=== PATIENT | male | born 1945 | race Caucasian/White ===

== ENCOUNTER 2016-07-16 13:49 | Outpatient (CLI) | payer MEDICARE, BC ==
[2016-07-16] MEDS ORDERED: GADOBUTROL 7.5 MMOL/7.5 ML VIAL IVP ONE (16:47)
== END 2016-07-16 13:50 | disposition home or self-care (01) ==
DX: H92.01 Otalgia, right ear (principal); H93.291 Other abnormal auditory perceptions, right ear
CPT/HCPCS: 36415; 70543; 82565; 84520; A9585

== ENCOUNTER 2016-08-04 09:37 | Outpatient (CLI) | payer MEDICARE, BC | END 2016-08-04 09:38 | disposition home or self-care (01) | DX: K44.9 Diaphragmatic hernia without obstruction or gangrene (principal); K21.9 Gastro-esophageal reflux disease without esophagitis ==

== ENCOUNTER 2016-09-02 | Outpatient (CLI) | payer MEDICARE, BC | END 2016-09-02 15:45 | disposition short-term general hospital (02) | DX: R22.2 Localized swelling, mass and lump, trunk (principal) | CPT/HCPCS: A0170; A0425; A0428 ==

== ENCOUNTER 2016-09-02 08:27 | Emergency (ER) | payer MEDICARE, BC ==
[2016-09-02] MEDS ORDERED: SODIUM CHLORIDE 0.9% 1,000 ML IV ONE (09:07)
[2016-09-02] MEDS ORDERED: IOPAMIDOL-300 100 ML VIAL IVP ONE (10:30)
[2016-09-02] MEDS ORDERED: PIPERACILLIN/TAZOBACTAM 4.5 GM in SODIUM CHLORIDE 0.9% MINIBAG 100 ML IV STA (12:28)
== END 2016-09-02 15:38 | disposition short-term general hospital (02) ==
DX: K65.1 Peritoneal abscess (principal); D64.9 Anemia, unspecified; K21.9 Gastro-esophageal reflux disease without esophagitis; E03.9 Hypothyroidism, unspecified; Z90.49 Acquired absence of other specified parts of digestive tract; Z87.891 Personal history of nicotine dependence
CPT/HCPCS: 36415; 74177; 80053; 83690; 85025; 96365; 99284; 99285; Q9967

== ENCOUNTER 2016-09-05 | Emergency (ER) | payer MEDICARE, BC | END 2016-09-05 13:42 | disposition home or self-care (01) ==

== ENCOUNTER 2016-09-10 | Emergency (ER) | payer MEDICARE, BC | END 2016-09-10 17:53 | disposition home or self-care (01) ==

== ENCOUNTER 2016-09-11 08:00 | Outpatient (CLI) | payer MEDICARE, BC | END 2016-09-11 23:59 | disposition home or self-care (01) | DX: R19.7 Diarrhea, unspecified (principal) ==

== ENCOUNTER 2016-10-11 16:08 | Outpatient (CLI) | payer MEDICARE, BC | END 2016-10-11 16:09 | disposition home or self-care (01) | DX: Z01.812 Encounter for preprocedural laboratory examination (principal); E04.1 Nontoxic single thyroid nodule; L02.91 Cutaneous abscess, unspecified; H92.01 Otalgia, right ear; H93.291 Other abnormal auditory perceptions, right ear ==

== ENCOUNTER 2016-10-13 12:48 | Outpatient (CLI) | payer MEDICARE, BC ==
[2016-10-13] MEDS ORDERED: IOPAMIDOL-300 50 ML VIAL PO ONE (14:20)
[2016-10-13] MEDS ORDERED: IOPAMIDOL-300 100 ML VIAL IVP ONE (14:20)
== END 2016-10-13 12:49 | disposition home or self-care (01) ==
DX: L02.91 Cutaneous abscess, unspecified (principal); K76.0 Fatty (change of) liver, not elsewhere classified; R22.2 Localized swelling, mass and lump, trunk
CPT/HCPCS: 74160; Q9967

== ENCOUNTER 2016-10-21 16:19 | Observation (INO) | payer MEDICARE, BC ==
[2016-10-21] MEDS ORDERED: IOPAMIDOL-300 100 ML VIAL IVP ONE (18:06)
[2016-10-21] MEDS ORDERED: SODIUM CHLORIDE 0.9% 1,000 ML IV ONE (18:20)
[2016-10-21] MEDS ORDERED: ACETAMINOPHEN 500 MG TABLET PO STA (18:37)
[2016-10-21] MEDS ORDERED: cefTRIAXone 1 GM in SODIUM CHLORIDE 0.9% MINIBAG 100 ML IV STA (18:46)
[2016-10-21] MEDS ORDERED: cefTRIAXone 1 GM VIAL ONE (18:51)
[2016-10-21] MEDS ORDERED: ACETAMINOPHEN 1,000 MG/100 ML 100 ML IV ONE (18:52)
[2016-10-21] MEDS ORDERED: ACETAMINOPHEN 1,000 MG/100 ML 100 ML IV STA (19:04)
[2016-10-21] MEDS ORDERED: LACTATED RINGERS 1,000 ML IV ONE (21:00)
[2016-10-21] MEDS ORDERED: BUPIVACAINE 0.5% PF 30 ML VIAL SUBQ ONE (21:50)
[2016-10-21] MEDS ORDERED: LORazepam 2 MG/ML SYRINGE IVP PRN (21:54)
[2016-10-21] MEDS ORDERED: HYDROmorphone 1 MG/ML SYRINGE IVP PRN (21:54)
[2016-10-21] MEDS ORDERED: ONDANSETRON 4 MG/2 ML VIAL IVP PRN (21:54)
[2016-10-21] MEDS ORDERED: LIDOCAINE 1%-EPI 1:100000 20 ML MDV SUBQ ONE (21:58)
[2016-10-21] MEDS ORDERED: LACTATED RINGERS 1,000 ML IV SCH (22:00)
[2016-10-21] MEDS ORDERED: PROPOFOL 1000 MG/100 ML IV ONE (22:05)
[2016-10-21] MEDS ORDERED: fentaNYL 250 MCG/5 ML VIAL IVP ONE (22:05)
[2016-10-21] MEDS ORDERED: DEXAMETHASONE 4 MG/ML VIAL IVP ONE (22:05)
[2016-10-21] MEDS ORDERED: KETOROLAC 30 MG/ML VIAL IVP ONE (22:05)
[2016-10-21] MEDS ORDERED: MIDAZOLAM 2 MG/2 ML VIAL IVP ONE (22:05)
[2016-10-21] MEDS ORDERED: ONDANSETRON 4 MG/2 ML VIAL IVP ONE (22:05)
[2016-10-21] MEDS ORDERED: LIDOCAINE-MPF 2% 5 ML VIAL IM ONE (22:05)
[2016-10-21] MEDS: PENICILLIN G POTASSIUM 2,500,000 UNIT in SODIUM CHLORIDE 0.9% 100ML 100 ML IV SCH (23:46)
[2016-10-22] MEDS ORDERED: HEPATITIS B VACCINE (PED) 10 MCG/0.5 ML VIAL IM ONE (01:00)
[2016-10-22] MEDS: PENICILLIN G POTASSIUM 2,500,000 UNIT in SODIUM CHLORIDE 0.9% 100ML 100 ML IV SCH ×6 (03:41→20:32)
[2016-10-22] MEDS ORDERED: LEVOTHYROXINE 75 MCG TABLET PO SCH (07:00)
[2016-10-22] MEDS: oxyCOD/ACETAMIN 5 MG/325 MG TABLET PO PRN ×2 (07:09→11:16)
[2016-10-22] MEDS ORDERED: MELOXICAM PO SCH (09:00)
[2016-10-22] MEDS: TAMSULOSIN 0.4 MG CAPSULE PO SCH (09:15)
[2016-10-22] MEDS: FAMOTIDINE 20 MG TABLET PO SCH ×2 (09:15→20:32)
[2016-10-22] MEDS: SODIUM CHLORIDE FLUSH 0.9% 10 ML SYRINGE IVP SCH ×4 (09:18→21:37)
[2016-10-22] MEDS: MELOXICAM 7.5 MG TABLET PO SCH (11:16)
[2016-10-22] MEDS: ESCITALOPRAM 10 MG TABLET PO SCH (11:16)
[2016-10-22] MEDS: ACETAMINOPHEN 1,000 MG/100 ML 100 ML IV PRN (21:37)
[2016-10-23] MEDS: PENICILLIN G POTASSIUM 2,500,000 UNIT in SODIUM CHLORIDE 0.9% 100ML 100 ML IV SCH ×3 (01:51→09:58)
[2016-10-23] MEDS: SODIUM CHLORIDE FLUSH 0.9% 10 ML SYRINGE IVP PRN ×3 (01:52→06:46)
[2016-10-23] MEDS: SODIUM CHLORIDE FLUSH 0.9% 10 ML SYRINGE IVP SCH (04:59)
[2016-10-23] MEDS: ACETAMINOPHEN 1,000 MG/100 ML 100 ML IV PRN (05:50)
[2016-10-23] MEDS ORDERED: LEVOTHYROXINE 25 MCG TABLET PO SCH (07:00)
[2016-10-23] MEDS: oxyCOD/ACETAMIN 5 MG/325 MG TABLET PO PRN (08:29)
[2016-10-23] MEDS: ESCITALOPRAM 10 MG TABLET PO SCH (09:31)
[2016-10-23] MEDS: TAMSULOSIN 0.4 MG CAPSULE PO SCH (09:31)
[2016-10-23] MEDS: FAMOTIDINE 20 MG TABLET PO SCH (09:31)
[2016-10-23] MEDS: MELOXICAM 7.5 MG TABLET PO SCH (09:31)
== END 2016-10-23 12:35 | disposition home or self-care (01) ==
PROC: 0JB70ZZ Excision of Back Subcutaneous Tissue and Fascia, Open Approach (ICD-10-PCS; principal; 2016-10-21 20:26)
DX: L02.212 Cutaneous abscess of back [any part, except buttock and flank] (principal); L76.22 Postprocedural hemorrhage of skin and subcutaneous tissue following other procedure; Y83.8 Other surgical procedures as the cause of abnormal reaction of the patient, or of later complication, without mention of misadventure at the time of the procedure; Y92.230 Patient room in hospital as the place of occurrence of the external cause; F32.9 Major depressive disorder, single episode, unspecified; N40.0 Benign prostatic hyperplasia without lower urinary tract symptoms; E89.0 Postprocedural hypothyroidism; K21.9 Gastro-esophageal reflux disease without esophagitis; J45.909 Unspecified asthma, uncomplicated; Z87.891 Personal history of nicotine dependence; Z90.49 Acquired absence of other specified parts of digestive tract; Z86.79 Personal history of other diseases of the circulatory system
CPT/HCPCS: 11042; 36415; 74177; 80053; 81001; 83690; 85025; 87070; 87075; 87205; 96361; 96374; 96375; 99284; 99285; A9270; G0378; J0131; J3010; J7120; Q9967

== ENCOUNTER 2016-10-25 14:05 | Outpatient (CLI) | payer MEDICARE, BC | END 2016-10-25 14:06 | disposition home or self-care (01) | DX: L02.211 Cutaneous abscess of abdominal wall (principal) ==

== ENCOUNTER 2016-10-26 11:24 | Inpatient (IN) | payer MEDICARE, BC ==
[2016-10-26] MEDS ORDERED: LACTATED RINGERS 1,000 ML IV ONE (12:15)
[2016-10-26] MEDS ORDERED: LIDOCAINE-MPF 2% 5 ML VIAL IM ONE (12:43)
[2016-10-26] MEDS ORDERED: fentaNYL 100 MCG/2 ML VIAL IVP ONE (12:43)
[2016-10-26] MEDS ORDERED: PROPOFOL 200 MG/20 ML VIAL IVP ONE (12:43)
[2016-10-26] MEDS ORDERED: MIDAZOLAM 2 MG/2 ML VIAL IVP ONE (12:43)
[2016-10-26] MEDS ORDERED: LIDOCAINE 1% 50 ML MDV SUBQ ONE ×2 (13:03)
[2016-10-26] MEDS ORDERED: BUPIVACAINE 0.5%-EPI 1:200000 PF 30 ML VIAL SUBQ ONE ×2 (13:03)
[2016-10-26] MEDS ORDERED: KETOROLAC 15 MG/ML VIAL IVP PRN (13:49)
[2016-10-26] MEDS ORDERED: ONDANSETRON 4 MG/2 ML VIAL IVP PRN (13:49)
[2016-10-26] MEDS ORDERED: SODIUM CHLORIDE FLUSH 0.9% 10 ML SYRINGE IVP PRN (13:49)
[2016-10-26] MEDS ORDERED: oxyCOD/ACETAMIN 5 MG/325 MG TABLET PO PRN (13:49)
[2016-10-26] MEDS ORDERED: HYDROmorphone 1 MG/ML SYRINGE IVP PRN (13:49)
[2016-10-26] MEDS: SODIUM CHLORIDE FLUSH 0.9% 10 ML SYRINGE IVP SCH ×2 (14:59→19:33)
[2016-10-26] MEDS ORDERED: PIPERACILLIN/TAZOBACTAM 3.375 GM in SODIUM CHLORIDE 0.9% MINIBAG 100 ML IV SCH (16:00)
[2016-10-26] MEDS: PIPERACILLIN/TAZOBACTAM 3.375 GM in SODIUM CHLORIDE 0.9% MINIBAG 100 ML IV SCH (18:30)
[2016-10-27] MEDS: PIPERACILLIN/TAZOBACTAM 3.375 GM in SODIUM CHLORIDE 0.9% MINIBAG 100 ML IV SCH ×2 (01:27→09:20)
[2016-10-27] MEDS: SODIUM CHLORIDE FLUSH 0.9% 10 ML SYRINGE IVP SCH (06:32)
[2016-10-27] MEDS ORDERED: LEVOTHYROXINE 25 MCG TABLET PO SCH (07:00)
[2016-10-27] MEDS ORDERED: LEVOCETIRIZINE DIHYDROCHLORIDE 5 MG PO SCH (09:00)
[2016-10-27] MEDS ORDERED: TAMSULOSIN 0.4 MG CAPSULE PO SCH (09:00)
[2016-10-27] MEDS ORDERED: ESCITALOPRAM 10 MG TABLET PO SCH (09:00)
[2016-10-27] MEDS ORDERED: MELOXICAM 7.5 MG TABLET PO SCH (09:00)
== END 2016-10-27 14:26 | disposition home or self-care (01) | DRG 858 ==
PROC: 0W9G00Z Drainage of Peritoneal Cavity with Drainage Device, Open Approach (ICD-10-PCS; principal; 2016-10-26 12:30)
DX: K68.11 Postprocedural retroperitoneal abscess (principal); F32.9 Major depressive disorder, single episode, unspecified; N40.0 Benign prostatic hyperplasia without lower urinary tract symptoms; E89.0 Postprocedural hypothyroidism; Z85.46 Personal history of malignant neoplasm of prostate

== ENCOUNTER 2016-11-16 10:39 | Outpatient (CLI) | payer MEDICARE, BC | END 2016-11-16 10:40 | disposition home or self-care (01) | LOC: LAB 10:39 | PROVIDERS: ATTEND Radiology Radiation Oncology | DX: Z85.46 Personal history of malignant neoplasm of prostate (principal) | CPT/HCPCS: 36415; 84153 ==

== ENCOUNTER 2016-12-22 09:18 | Outpatient (CLI) | payer MEDICARE, BC ==
[2016-12-22 10:15] LABS: CREATININE 0.9 mg/dL (0.6-1.2)
== END 2016-12-22 09:19 | disposition home or self-care (01) ==
LOC: LAB 09:18
PROVIDERS: ATTEND Surgery
DX: L02.91 Cutaneous abscess, unspecified (principal)
CPT/HCPCS: 36415; 82565; 84520

== ENCOUNTER 2016-12-22 09:52 | Outpatient (CLI) | payer MEDICARE, BC ==
[2016-12-22] MEDS ORDERED: IOPAMIDOL-300 100 ML VIAL IVP ONE (10:45)
--- NOTE | 2016-12-22 12:00 | CT Report ---
CT ABDOMEN AND PELVIS WITH CONTRAST: 12/22/2016 CLINICAL INDICATION: Abscess. TECHNIQUE: Axial CT images of the abdomen and pelvis were obtained with 100 mL Isovue-300 intravenou sly as well as oral contrast. In accordance with CT protocol optimization, one or more of the following dose reduction techniques w ere utilized for this exam: automated exposure control, adjustment of mA and/or KV based on patient size, or use of iterative reconstructive technique. COMPARISON: 10/21/2016 FINDINGS: Limited evaluation of the lung bases demonstrates trace right effusion and atelectasis. Abdomen: The previously seen abscess in the right flank has resolved, with a small defect from incis ion and drainage present in the right posterior flank skin. Trace ascites is noted anterior to the l iver. The liver, spleen, pancreas, kidneys, and adrenal glands are unremarkable. The patient is sta tus post cholecystectomy. No bowel dilatation, free gas, or free fluid is present. No abdominal blanca nopathy is seen. Pelvis: Trace free fluid is present in the pelvis. Fiducial markers are seen in the prostate. No p elvic sidewall adenopathy or inguinal adenopathy is appreciated. Osseous structures demonstrate degenerative changes. IMPRESSION: POSTOPERATIVE CHANGES OF I and D OF RIGHT FLANK ABSCESS, WITHOUT EVIDENCE OF REACCUMULAT ION. TRACE ASCITES. JOB #: [id number] EXT JOB #:[id number]
== END 2016-12-22 09:53 | disposition home or self-care (01) ==
LOC: DI 09:52
PROVIDERS: ATTEND Surgery
DX: L02.91 Cutaneous abscess, unspecified (principal); R18.8 Other ascites
CPT/HCPCS: 36415; 74177; 82565; 84520; Q9967

== ENCOUNTER 2017-01-09 13:01 | Outpatient (CLI) | payer MEDICARE, BC ==
[2017-01-09 13:42] LABS: BASOPHILS # (AUTO) 0.1 10^3/uL (0.0-0.1); BASOPHILS % (AUTO) 0.9 %; EOSINOPHILS # (AUTO) 0.3 10^3/uL (0.0-0.7); EOSINOPHILS % (AUTO) 3.9 %; HCT - HEMATOCRIT 34.3 % (42.0-52.0); LYMPHOCYTES # (AUTO) 1.1 10^3/uL (1.5-3.5); LYMPHOCYTES % (AUTO) 12.5 %; MEAN CORPUSCULAR HEMOGLOBIN 23.1 pg (27.0-31.0); MEAN CORPUSCULAR HGB CONC 32.1 g/dL (32.0-36.0); MEAN PLATELET VOLUME 6.5 fL (7.4-11.4); MONOCYTES # (AUTO) 0.7 10^3/uL (0.0-1.0); MONOCYTES % (AUTO) 7.9 %; NEUTROPHILS # (AUTO) 6.6 10^3/uL (1.5-6.6); NEUTROPHILS % (AUTO) 74.8 %; RED BLOOD COUNT 4.77 10^6/uL (4.70-6.10); RED CELL DISTRIBUTION WIDTH 16.2 % (12.0-15.0); UNCORRECTED WHITE BLOOD COUNT 8.8 x10^3/uL; WHITE BLOOD COUNT 8.8 x10^3/uL (4.8-10.8)
== END 2017-01-09 13:02 | disposition home or self-care (01) ==
LOC: LAB 13:01
PROVIDERS: ATTEND Surgery
DX: L02.91 Cutaneous abscess, unspecified (principal)
CPT/HCPCS: 36415; 85025

== ENCOUNTER 2017-01-19 09:25 | Day surgery (SDC) | payer MEDICARE, BC ==
[2017-01-19] MEDS ORDERED: LACTATED RINGERS 1,000 ML IV ONE (10:01)
[2017-01-19] MEDS ORDERED: fentaNYL 100 MCG/2 ML VIAL IVP ONE (11:30)
[2017-01-19] MEDS ORDERED: MIDAZOLAM 2 MG/2 ML VIAL IVP ONE (11:30)
[2017-01-19 12:12] VITALS: BP 130/73
== END 2017-01-19 09:26 | disposition home or self-care (01) ==
LOC: SDS 09:25
PROVIDERS: ATTEND Surgery
PROC: 0DBN8ZX Excision of Sigmoid Colon, Via Natural or Artificial Opening Endoscopic, Diagnostic (ICD-10-PCS; 2017-01-19)
PROC: 0DBK8ZX Excision of Ascending Colon, Via Natural or Artificial Opening Endoscopic, Diagnostic (ICD-10-PCS; principal; 2017-01-19 10:30)
DX: D12.3 Benign neoplasm of transverse colon (principal); K63.5 Polyp of colon; K64.8 Other hemorrhoids; I48.91 Unspecified atrial fibrillation; F41.9 Anxiety disorder, unspecified
CPT/HCPCS: 45380; J7120; 88305

== ENCOUNTER 2017-02-19 09:46 | Emergency (ER) | payer MEDICARE, BC ==
--- NOTE | 2017-02-19 10:07 | ED Physician Documentation ---
PD HPI ABD PAIN - Stated complaint Stated Complaint: ABD PX - Chief complaint Chief Complaint: Abd Pain - History obtained from History obtained from: Patient - History of Present Illness Timing - onset: How many days ago (2) Timing - duration: Days (2) Timing - details: Gradual onset, Still present Quality: Aching, Dull, Pain Location: RUQ Radiation: No: Chest, Right flank Improved by: Position (feels better lying on side). No: Eating Worsened by: Position, Palpation. No: Eating Associated symptoms: Loss of appetite. No: Fever, Nausea, Vomiting, Diarrhea, Dysuria, Weight loss Similar symptoms before: Diagnosis (intra-abd abscess subsequent to laparascopic CCY, with abd and then retroperitoneal abscesses. Last surgical drainage October 2016, and had felt okay from then until 2 days ago.) Review of Systems Constitutional: denies: Fever, Chills Nose: denies: Rhinorrhea / runny nose, Congestion Throat: denies: Sore throat Respiratory: denies: Cough GI: reports: Abdominal Pain, Nausea. denies: Vomiting, Diarrhea, Bloody / black stool : denies: Dysuria, Frequency, Hematuria Skin: denies: Rash, Lesions Neurologic: denies: Generalized weakness, Near syncope Endocrine: denies: Swollen lymph nodes Immunocompromised: denies: Immunocompromised PD PAST MEDICAL HISTORY - Past Medical History Cardiovascular: Angina, Atrial fibrillation Respiratory: Asthma Neuro: None Endocrine/Autoimmune: HyPOthyroidism GI: GERD : None, Other HEENT: None Psych: Depression Musculoskeletal: Osteoarthritis, Gout Derm: Eczema - Past Surgical History Past Surgical History: Yes General: Cholecystectomy, Appendectomy, Bowel surgery, Colonoscopy, EGD, Other Ortho: Arthroscopic surgery HEENT: Tonsil/Adenoidectomy - Present Medications Home Medications: Ambulatory Orders Medication Instructions Recorded Confirmed Levocetirizine Dihydrochloride 5 mg PO DAILY 10/22/16 01/19/17 [Xyzal] Levothyroxine Sodium 50 mcg PO QDAC 10/22/16 02/19/17 Meloxicam 15 mg PO DAILY 10/22/16 02/19/17 Tamsulosin [Flomax] 0.4 mg PO DAILY capsule 10/23/16 02/19/17 Escitalopram [Lexapro] 10 mg PO DAILY #0 tablet 10/27/16 02/19/17 Loratadine/Pseudoephedrine 1 tab PO DAILY 01/19/17 01/19/17 [Claritin-D 24 Hour Tablet] Amox/Clav 875/125 [Augmentin] 1 each PO Q12H #10 tablet 02/19/17 HYDROcod/ACETAM 5/325 [Camargo 5/325] 1 tab PO Q6H PRN #15 tablet 02/19/17 - Allergies Allergies/Adverse Reactions: Allergies Allergy/AdvReac Type Severity Reaction Status Date / Time No Known Drug Allergies Allergy Verified 10/26/16 15:27 - Social History Does the pt smoke?: Yes Smoking Status: Former smoker Does the pt drink ETOH?: Yes Does the pt have substance abuse?: No - Immunizations Immunizations are current?: Yes PD ED PE NORMAL - Vitals Vital signs reviewed: Yes - General General: Alert and oriented X 3, No acute distress, Well developed/nourished - HEENT HEENT: Pharynx benign - Neck Neck: Supple, no meningeal sign, No adenopathy - Cardiac Cardiac: RRR, No murmur - Respiratory Respiratory: Clear bilaterally - Abdomen Abdomen: Normal bowel sounds, Non distended, No organomegaly, Other (abd tender RUQ with local guarding but no percussion nor rebound tenderness. ) - Male Male : Deferred - Rectal Rectal: Deferred - Back Back: No CVA TTP - Derm Derm: Normal color, Warm and dry, No rash - Neuro Neuro: Alert and oriented X 3, No motor deficit, Normal speech Results - Vitals Vitals: Vital Signs - 24 hr 02/19/17 02/19/17 02/19/17 09:54 11:14 13:19 Temperature 36.9 C 37.1 C Heart Rate 80 75 72 Respiratory 16 18 16 Rate Blood Pressure 143/61 H 116/61 145/73 H O2 Saturation 99 95 98 02/19/17 02/19/17 14:54 15:41 Temperature Heart Rate 70 69 Respiratory 14 15 Rate Blood Pressure 124/74 132/75 H O2 Saturation 98 98 Oxygen O2 Source Room air - Labs Labs: Laboratory Tests 02/19/17 02/19/17 10:51 10:51 WBC 8.4 RBC 4.32 L Hgb 9.8 L Hct 29.9 L MCV 69.2 L MCH 22.7 L MCHC 32.7 RDW 17.4 H Plt Count 285 MPV 6.9 L Neut # 6.6 Lymph # 0.8 L Placer # 0.7 Eos # 0.2 Baso # 0.1 Absolute Nucleated RBC 0.00 Nucleated RBCs 0.0 Sodium 139 Potassium 3.8 Chloride 99 L Carbon Dioxide 31 Anion Gap 9.0 BUN 20 Creatinine 1.0 Estimated GFR (MDRD) 74 L Glucose 142 H Calcium 9.0 Total Bilirubin 0.5 AST 16 ALT 13 Alkaline Phosphatase 97 C-Reactive Protein 12.0 H Total Protein 7.5 Albumin 3.3 Globulin 4.2 Albumin/Globulin Ratio 0.8 L Lipase 19 L - Rads (name of study) abd CT Radiology: Prelim report reviewed, Discussed with rads (perihepatic abscess 8 cm x 3 cm. No free fluid. Some thickening of iraj hepatis, concerning for cancer vs. inflammatory process. ) PD MEDICAL DECISION MAKING - ED course Complexity details: reviewed results, considered differential, d/w patient, d/w vocational rehab consultant (Dr. Bolton who saw patient in ED and was going to admit him for abx and subsequent treatment, but patient prefers to go home with outpatient follow up. Given IV abx dose here. Will see surgery tomorrow and they will arrange outpt or direct admit for IR percutaneous drainage of abscess. ) Departure - Departure Disposition: 01 Home, Self Care Clinical Impression: Intra-abdominal abscess Abdominal pain Qualifiers: Abdominal location: right upper quadrant Qualified Code(s): R10.11 - Right upper quadrant pain Condition: Stable Record reviewed to determine appropriate education?: Yes Follow-Up: Sea Morales MD [Primary Care Provider] - Zafar Bolton MD [Provider Admit Priv/Credential] - Prescriptions: Amox/Clav 875/125 [Augmentin] 1 each PO Q12H #10 tablet HYDROcod/ACETAM 5/325 [Camargo 5/325] 1 tab PO Q6H PRN #15 tablet PRN Reason: Pain Comments: Tylenol if needed for pain every 4-6 hours. Can use hydrocodone if instead if needed. Augmentin twice daily for the next 5 days. Follow-up with Dr. Bolton or the surgical office tomorrow for setting up outpatient drainage of the perihepatic abscess. Return sooner if worsening pain, fever, vomiting, other concerns. Discharge Date/Time: 02/19/17 15:51
[2017-02-19] MEDS ORDERED: ACETAMINOPHEN 325 MG TABLET PO STA (10:29)
[2017-02-19] MEDS ORDERED: SODIUM CHLORIDE 0.9% 1,000 ML IV ONE (10:29)
[2017-02-19] MEDS ORDERED: ACETAMINOPHEN 325 MG TABLET PO ONE (10:39)
[2017-02-19] MEDS ORDERED: SODIUM CHLORIDE FLUSH 0.9% 10 ML SYRINGE IVP ONE (10:39)
[2017-02-19 11:03] LABS: BASOPHILS # (AUTO) 0.1 10^3/uL (0.0-0.1); BASOPHILS % (AUTO) 0.7 %; EOSINOPHILS # (AUTO) 0.2 10^3/uL (0.0-0.7); EOSINOPHILS % (AUTO) 2.7 %; HCT - HEMATOCRIT 29.9 % (42.0-52.0); HGB - HEMOGLOBIN 9.8 g/dL (14.0-18.0); LYMPHOCYTES # (AUTO) 0.8 10^3/uL (1.5-3.5); LYMPHOCYTES % (AUTO) 9.6 %; MEAN CORPUSCULAR HEMOGLOBIN 22.7 pg (27.0-31.0); MEAN CORPUSCULAR HGB CONC 32.7 g/dL (32.0-36.0); MEAN CORPUSCULAR VOLUME 69.2 fL (80.0-94.0); MEAN PLATELET VOLUME 6.9 fL (7.4-11.4); MONOCYTES # (AUTO) 0.7 10^3/uL (0.0-1.0); MONOCYTES % (AUTO) 8.3 %; NEUTROPHILS # (AUTO) 6.6 10^3/uL (1.5-6.6); NEUTROPHILS % (AUTO) 78.7 %; RED BLOOD COUNT 4.32 10^6/uL (4.70-6.10); RED CELL DISTRIBUTION WIDTH 17.4 % (12.0-15.0); UNCORRECTED WHITE BLOOD COUNT 8.4 x10^3/uL; WHITE BLOOD COUNT 8.4 x10^3/uL (4.8-10.8)
[2017-02-19 11:18] LABS: ALBUMIN/GLOBULIN RATIO 0.8 (1.0-2.2); BILIRUBIN,TOTAL 0.5 mg/dL (0.2-1.0); POTASSIUM 3.8 mmol/L (3.5-5.0); TOTAL PROTEIN 7.5 g/dL (6.7-8.2)
[2017-02-19] MEDS ORDERED: IOPAMIDOL-300 100 ML VIAL IVP ONE (11:46)
--- NOTE | 2017-02-19 13:14 | CT Preliminary Report ---
Exam: CT Abdomen/Pelvis W/ IMPRESSION: 1. There is an anterior perihepatic abscess measuring 3.8 x 8.1 cm. 2. There is amorphous soft tissue density in the iraj hepatis resulting in narrowing of the portal v ein and intrahepatic bile duct dilation. There is an adjacent area of decreased attenuation in the li ellen. Pattern worrisome for cholangiocarcinoma. An inflammatory lesion might appear similarly. 3. Retroperitoneal lymphadenopathy. [facility] Critical results notification: The above critical findings were discussed with Dr. Dimas by Dr. Pearl Rey at 13:05 hrs on 02/19/17. SITE ID: [id number]
--- NOTE | 2017-02-19 13:17 | CT Report ---
EXAM: CT ABDOMEN AND PELVIS EXAM DATE: 02/19/2017 11:46 AM. CLINICAL HISTORY: RUQ abd pain for 2 days; prior abscesses in area. COMPARISONS: 12/22/2016. TECHNIQUE: Routine helical CT imaging was performed through the abdomen and pelvis. IV contrast: 100 mL Isovue-300. Enteric contrast: No. Reconstructions: Coronal and sagittal. In accordance with CT protocol optimization, one or more of the following dose reduction techniques w ere utilized for this exam: automated exposure control, adjustment of mA and/or KV based on patient s ize, or use of iterative reconstructive technique. FINDINGS: Lung Bases: There is a trace right pleural effusion with adjacent atelectasis. Minimal pleural fluid in the left lung base. Coronary artery calcifications. Liver: There is increased, amorphous soft tissue density in the iraj hepatis region series 3 image 3 0 measuring approximately 3.2 x 5 cm. There is an adjacent area of decreased attenuation in the liver on series 3 image 31 measuring approximately 2.2 x 2 cm. This soft tissue density results in narrowi ng of the portal vein and intrahepatic and extrahepatic bile duct dilation. There is a peripherally e nhancing anterior perihepatic fluid collection series 3 image 28 measuring 3.8 x 8.1 cm. There is a 0 .7 cm low-density lesion in the posterior right hepatic lobe series 3 image 20 which appears unchange d from prior exams. A 0.3 cm low-density lesion in the left hepatic lobe series 3 image 25 also appea rs stable. Gallbladder/Bile Ducts: The gallbladder is surgically absent. Spleen: Normal. Pancreas: Normal. Adrenal Glands: Normal. Kidneys: Negative for hydronephrosis. There is a 0.2 cm nonobstructing calculus in the lower pole of the left kidney series 3 image 45. Peritoneal Cavity/Bowel: No free air or fluid. No bowel obstruction. No acute inflammatory changes. Pelvic Organs: There are metallic densities in the enlarged prostate gland. Urinary bladder shows no focal wall thickening. Vasculature: There is atherosclerotic plaque in the aorta and iliac arteries without aneurysm. Bones: No significant abnormality. Other: There is retroperitoneal lymphadenopathy, best appreciated on the coronal reformatted images. A publications sales representative lymph node left of the aorta below the renal vessels on series 5 image 26 measures 1 .2 x 2.5 cm. IMPRESSION: 1. There is an anterior perihepatic abscess measuring 3.8 x 8.1 cm. 2. There is amorphous soft tissue density in the iraj hepatis resulting in narrowing of the portal v ein and intrahepatic bile duct dilation. There is an adjacent area of decreased attenuation in the li ellen. Pattern worrisome for cholangiocarcinoma. An inflammatory lesion might appear similarly. 3. Retroperitoneal lymphadenopathy. [facility] Critical results notification: The above critical findings were discussed with Dr. Dimas by Dr. Pearl Rey at 13:05 hrs on 02/19/17. Referring Provider Line: [phone] SITE ID: [id number]
[2017-02-19] MEDS ORDERED: ONDANSETRON 4 MG/2 ML VIAL IVP PRN (13:29)
[2017-02-19] MEDS ORDERED: HYDROmorphone 1 MG/ML SYRINGE IVP PRN ×2 (13:29→13:33)
[2017-02-19] MEDS ORDERED: SODIUM CHLORIDE FLUSH 0.9% 10 ML SYRINGE IVP PRN (13:29)
[2017-02-19] MEDS ORDERED: AMPICILLIN/SULBACTAM 3 GM in SODIUM CHLORIDE 0.9% MINIBAG 100 ML IV STA (13:43)
[2017-02-19] MEDS ORDERED: NS W/20 MEQ KCL 1,000 ML IV SCH (14:00)
[2017-02-19] MEDS ORDERED: PIPERACILLIN/TAZOBACTAM 3.375 GM in SODIUM CHLORIDE 0.9% MINIBAG 100 ML IV SCH (14:00)
[2017-02-19] MEDS ORDERED: SODIUM CHLORIDE FLUSH 0.9% 10 ML SYRINGE IVP SCH (14:00)
[2017-02-19] MEDS ORDERED: KETOROLAC 60 MG/2 ML VIAL IVP STA (14:34)
[2017-02-19 15:43] VITALS: BP 132/75
--- NOTE | 2017-02-20 14:55 | CONSULTATION NOTE ---
DATE OF CONSULTATION: 02/19/2017 00:00:00 REQUESTING PROVIDER: Francis Dimas MD, in emergency room. REASON FOR REFERRAL: Right upper quadrant abdominal pain with intraabdominal fluid collection seen on CT scan. HISTORY OF PRESENT ILLNESS: The patient is a 72-year-old male who has a complicated medical history. He had undergone a laparoscopic cholecystectomy for acute gangrenous cholecystitis almost a year ago. He had developed intraabdominal abscesses, needing to be percutaneously drained and then developed t ract abscesses, needing further incision and drainage. He has been doing well for the last 6 months a nd now starts to present with right flank pain for the last 2-3 days. He has not had any fever. He is not very hungry. He denies any altered bowel movements. PAST SURGICAL HISTORY 1. Laparoscopic cholecystectomy. 2. Appendectomy. 3. Bowel surgery. 4. Arthroscopy. 5. Tonsillectomy and adenoidectomy. 6. Thyroid surgery. MEDICATIONS 1. Xyzal. 2. Levothyroxine. 3. Meloxicam. 4. Flomax. 5. Lexapro. 6. Claritin. 7. Vicodin. ALLERGIES TO MEDICATIONS: NONE. HABITS: The patient quit smoking. Socially uses alcohol. Denies any drug use. FAMILY HISTORY: Noncontributory. SOCIAL HISTORY: The patient is single. REVIEW OF SYSTEMS A complete review of systems was obtained. Pertinent positives are: CONSTITUTIONAL: Not feeling well. GASTROINTESTINAL: Anorexia and abdominal pain. A 12 point review of systems was obtained with pertinent positives discussed and all others being neg ative. PAST MEDICAL HISTORY 1. Atrial fibrillation. 2. Asthma. 3. Hypothyroidism. 4. Gastroesophageal reflux disease. 5. Depression. 6. Arthritis. 7. Gout. 8. BPH. PHYSICAL EXAMINATION VITAL SIGNS: Temperature is 37.1, heart rate 72, respirations 16, blood pressure 145/73. GENERAL: The patient is an elderly male in no distress at the current time. EYES: Nonicteric. NECK: No lymphadenopathy. HEART: Regular. LUNGS: Clear. BACK: Nontender. ABDOMEN: Soft. No significant tenderness. No masses. No hernias. EXTREMITIES: No edema or cyanosis. NEUROLOGIC: The patient appears to be neurologically intact without any deficits. PSYCHOLOGIC: The patient is coherent, cooperative and appears to answer questions fully. DIAGNOSTIC DATA: Liver function tests within normal limits. White blood cell count 8.4, hemoglobin 9. 8, MCV of 70. CT scan of the abdomen and pelvis shows an anterior perihepatic fluid collection measuring 4 x 8 cm. There is an amorphic soft tissue density in the iraj hepatitis, resulting in a narrowing of the port al vein and intrahepatic bile duct. There is retroperitoneal lymphadenopathy. ASSESSMENT 1. Right upper quadrant abdominal pain with the patient showing intraabdominal fluid collection, poss ibly related to an abscess. His white blood cell count is normal, not having any fever. He would like to try and do this as an outpatient as urgently as possible. I have explained to him that as long as he is not having any systemic symptoms, then it would be okay to do after sending him home on oral a ntibiotics. We will set up a percutaneous drainage as an outpatient at [facility] as soon as possible. 2. Abnormality in the iraj hepatitis needing further evaluation with an magnetic resonance cholangio pancreatoraphy once the fluid collection in the right upper quadrant has been dealt with. 3. Chronic anemia of unknown etiology. He recently had a colonoscopy in which no significant abnormal ities were noted. It may be due to chronic disease, but further workup with iron studies along with p ossible esophagogastroduodenoscopy may be needed along with fecal occult blood. JOB #: [id number] EXT JOB #:[id number]
== END 2017-02-19 15:51 | disposition home or self-care (01) ==
LOC: ED 09:46
DX: K75.0 Abscess of liver (principal)
CPT/HCPCS: 36415; 74177; 80053; 83690; 85025; 86140; 96365; 99283; 99284; A9270; Q9967

== ENCOUNTER 2017-03-11 08:43 | Outpatient (CLI) | payer MEDICARE, BC ==
[2017-03-11] MEDS ORDERED: GADOBUTROL 7.5 MMOL/7.5 ML VIAL IVP ONE (10:07)
--- NOTE | 2017-03-12 16:38 | MRI Report ---
EXAM: MR ABDOMEN WITH AND WITHOUT CONTRAST (MR PANCREAS AND MRCP) EXAM DATE: 03/11/2017 10:20 AM. CLINICAL HISTORY: MASS. Gallbladder surgery 04/03/2016 with 4 episodes of subsequent abscess. Bile du ct inflammation. COMPARISON: None. TECHNIQUE: Multiplanar breath-hold T1, T2, and DWI sequences obtained through the pancreas and abdome n on an MR scanner. Dedicated 2D and 3D MRCP sequences obtained through the biliary and pancreatic du cts. Images obtained before and after administration of 7.5 mL Gadavist intravenous contrast. Multiph ase postcontrast sequences obtained through the pancreas. FINDINGS: Lung Bases: The lung bases are clear. Liver: There is a 1.3 x 1.2 cm benign hemangioma within posterior right liver lobe segment 7 on axial T2 SPAIR series 801 image 29. This shows peripheral nodular, discontinuous and progressive enhanceme nt. A tiny 5 mm segment 2 lateral left liver lobe cyst. Worsening [id number] intrahepatic biliary ductal dilatation, particularly within left liver lob e. Interval decrease in size of a perihepatic abscess, anterior to medial left liver lobe measuring 4.7 x 1.0 x 2.2 cm today, previously 6.2 x 3.1 x 4.[address] 02/19/2017. Within posterior aspect of segment IVB on axial postcontrast images is a 1.5 x 1.3 cm region that sebastian ws delayed parenchymal enhancement. ( Previously 1.7 x 1.[address] 02/19/2017 and 1.9 x 1. 9 cm on 12/22/2016.) This does not appear to represent focal fat on MRI. Diffusion series suggest res tricted diffusion. Question resolving hepatic abscess. CBD: Dilated 10 mm common hepatic duct. 7 mm diameter distal common bile duct. There is a 2.3 cm seg ment of marked narrowing of the common bile duct, on 3-D MIP MRCP series 1003 image 6. No choledocholithiasis evident. Gallbladder: Surgically absent. Pancreas: Normal main pancreatic duct measuring 1-2 mm diameter. No definite pancreatic mass, howeve r there is abnormal infiltrating soft tissue as on prior CT within iraj hepatis superior to pancreat ic head/neck. The portal vein is significantly narrowed by adjacent tissue within the iraj hepatis. Hepatic artery also appears to be abutted by this process. Spleen: The spleen appears normal. Kidneys and Adrenals: The kidneys appear normal with no mass or hydronephrosis. The adrenals appear n ormal. Bowel: The small bowel and colon appear normal with no inflammation or obstruction. Retroperitoneum: Retroperitoneal adenopathy with aortocaval lymph nodes measuring up to 1.3 cm short axis on postcontrast coronal images. Small amount of ascites. IMPRESSION: 1. A rim-enhancing abscess ventral to medial left liver lobe has nearly resolved. 2. A 1.5 cm region of delayed enhancement within Segment IVb of the liver has progressively decreased in size, question resolving hepatic abscess. 3. A 1.3 cm posterior right liver lobe segment 7 hemangioma. 4. Tiny left liver lobe cyst. 5. Infiltrating soft tissue process within iraj hepatis with significant segmental narrowing of comm on bile duct and portal vein. This process abuts hepatic artery. Worsening intrahepatic biliary ducta l dilatation. Question cholangiocarcinoma or pancreatic carcinoma. Consider endoscopic ultrasound. 6. Retroperitoneal adenopathy. 7. Prior cholecystectomy. 8. Small amount of ascites. If clinical concern for bile leak, consider HIDA scan. [facility] Referring Provider Line: [phone] SITE ID: [id number]
== END 2017-03-11 08:44 | disposition home or self-care (01) ==
LOC: DI 08:43
PROVIDERS: ATTEND Surgery
DX: D18.03 Hemangioma of intra-abdominal structures (principal); K75.0 Abscess of liver; K76.89 Other specified diseases of liver; R18.8 Other ascites; Z90.49 Acquired absence of other specified parts of digestive tract
CPT/HCPCS: 74183; A9585

== ENCOUNTER 2017-03-20 14:00 | Outpatient (CLI) | payer MEDICARE, BC ==
[2017-03-20 16:11] LABS: ALBUMIN/GLOBULIN RATIO 1.1 (1.0-2.2); BILIRUBIN,TOTAL 0.4 mg/dL (0.2-1.0); CALCIUM 9.1 mg/dL (8.5-10.3); CREATININE 1.1 mg/dL (0.6-1.2); TOTAL PROTEIN 7.5 g/dL (6.7-8.2)
[2017-03-20 16:13] LABS: BASOPHILS % (AUTO) 0.7 %; EOSINOPHILS # (AUTO) 0.2 10^3/uL (0.0-0.7); HCT - HEMATOCRIT 34.4 % (42.0-52.0); HGB - HEMOGLOBIN 10.9 g/dL (14.0-18.0); LYMPHOCYTES # (AUTO) 0.8 10^3/uL (1.5-3.5); LYMPHOCYTES % (AUTO) 13.8 %; MEAN CORPUSCULAR HEMOGLOBIN 22.8 pg (27.0-31.0); MEAN CORPUSCULAR HGB CONC 31.6 g/dL (32.0-36.0); MEAN CORPUSCULAR VOLUME 72.1 fL (80.0-94.0); MEAN PLATELET VOLUME 7.8 fL (7.4-11.4); MONOCYTES # (AUTO) 0.4 10^3/uL (0.0-1.0); MONOCYTES % (AUTO) 6.7 %; NEUTROPHILS # (AUTO) 4.6 10^3/uL (1.5-6.6); NEUTROPHILS % (AUTO) 75.8 %; RED BLOOD COUNT 4.78 10^6/uL (4.70-6.10); RED CELL DISTRIBUTION WIDTH 20.3 % (12.0-15.0); UNCORRECTED WHITE BLOOD COUNT 6.1 x10^3/uL; WHITE BLOOD COUNT 6.1 x10^3/uL (4.8-10.8)
== END 2017-03-20 14:01 | disposition home or self-care (01) ==
LOC: LAB 14:00
PROVIDERS: ATTEND Surgery
DX: R22.9 Localized swelling, mass and lump, unspecified (principal)
CPT/HCPCS: 36415; 80053; 82378; 83690; 85025; 86301

== ENCOUNTER 2017-04-06 18:37 | Emergency (ER) | payer MEDICARE, BC ==
[2017-04-06] MEDS ORDERED: PANTOPRAZOLE 40 MG VIAL IVP STA (19:05)
--- NOTE | 2017-04-06 19:08 | ED Physician Documentation ---
PD HPI CHEST PAIN - Stated complaint Stated Complaint: CHEST PX - Chief complaint Chief Complaint: Cardiac - History obtained from History obtained from: Patient - History of Present Illness Timing - onset: Other (He finished a prednisone taper for labyrinthitis yesterday. Today he has had 3 episodes of chest pain, all started at rest. It is actually epigastric burning pain that radiates to the back, goes away after taking some antacids and eating. It is not associated with dizziness, shortness of breath, nausea, sweats. Currently he is pain-free.) Review of Systems Constitutional: reports: Reviewed and negative Throat: denies: Dental pain / toothache, Oral lesions / sores, Sore throat Cardiac: denies: Pedal edema, Calf pain Respiratory: denies: Dyspnea, Cough, Hemoptysis, Wheezing PD PAST MEDICAL HISTORY - Past Medical History Past Medical History: Yes Cardiovascular: Angina, Atrial fibrillation Respiratory: Asthma Neuro: None Endocrine/Autoimmune: HyPOthyroidism GI: GERD : None, Other HEENT: None Psych: Depression Musculoskeletal: Osteoarthritis, Gout Derm: Eczema - Past Surgical History Past Surgical History: Yes General: Cholecystectomy, Appendectomy, Bowel surgery, Colonoscopy, EGD, Other Ortho: Arthroscopic surgery HEENT: Tonsil/Adenoidectomy - Present Medications Home Medications: Ambulatory Orders Medication Instructions Recorded Confirmed Levocetirizine Dihydrochloride 5 mg PO DAILY 10/22/16 01/19/17 [Xyzal] Levothyroxine Sodium 50 mcg PO QDAC 10/22/16 02/19/17 Meloxicam 15 mg PO DAILY 10/22/16 02/19/17 Tamsulosin [Flomax] 0.4 mg PO DAILY capsule 10/23/16 02/19/17 Escitalopram [Lexapro] 10 mg PO DAILY #0 tablet 10/27/16 02/19/17 Loratadine/Pseudoephedrine 1 tab PO DAILY 01/19/17 01/19/17 [Claritin-D 24 Hour Tablet] Amox/Clav 875/125 [Augmentin] 1 each PO Q12H #10 tablet 02/19/17 HYDROcod/ACETAM 5/325 [Keldron 5/325] 1 tab PO Q6H PRN #15 tablet 02/19/17 Sucralfate [Carafate] 1 gm PO ACHS #40 tablet 04/06/17 - Allergies Allergies/Adverse Reactions: Allergies Allergy/AdvReac Type Severity Reaction Status Date / Time piroxicam [From Feldene] Allergy Unknown Verified 04/06/17 18:42 - Social History Does the pt smoke?: No Smoking Status: Former smoker Does the pt drink ETOH?: Yes Does the pt have substance abuse?: No - Immunizations Immunizations are current?: Yes - POLST Patient has POLST: No PD ED PE NORMAL - Vitals Vital signs reviewed: Yes - General General: Alert and oriented X 3, No acute distress - Cardiac Cardiac: RRR, No murmur - Respiratory Respiratory: No respiratory distress, Clear bilaterally - Abdomen Abdomen: Normal bowel sounds, Soft, Non tender - Extremities Extremities: No edema, No calf tenderness / cord - Neuro Neuro: Alert and oriented X 3, Normal speech - Psych Psych: Normal mood, Normal affect Results - Vitals Vitals: Vital Signs - 24 hr 04/06/17 04/06/17 04/06/17 18:39 19:55 20:54 Temperature 36.3 C L Heart Rate 83 81 75 Respiratory 20 18 15 Rate Blood Pressure 169/79 H 148/56 H 141/53 H O2 Saturation 96 93 93 04/06/17 21:35 Temperature Heart Rate 78 Respiratory 15 Rate Blood Pressure 155/75 H O2 Saturation 94 Oxygen O2 Source Room air - EKG (time done) 1846 Rate: Rate (enter#) (59) Rhythm: NSR [place]: Normal Intervals: Normal [place] QRS: Normal Ischemia: Normal ST segments Computer interpretation: Agree with computer 2137 Rate: Rate (enter#) (75) Rhythm: NSR [place]: Normal Intervals: Normal [place] QRS: Normal Ischemia: Normal ST segments Compare to prior EKG: Unchanged from prior EKG Computer interpretation: Agree with computer - Labs Labs: Laboratory Tests 04/06/17 04/06/17 04/06/17 19:15 19:15 19:15 WBC 9.5 RBC 4.99 Hgb 11.9 L Hct 37.1 L MCV 74.5 L MCH 23.9 L MCHC 32.1 RDW 23.6 H Plt Count 154 MPV 8.2 Neut # 7.2 H Lymph # 1.3 L Carver # 0.7 Eos # 0.2 Baso # 0.0 Absolute Nucleated RBC 0.01 Nucleated RBC % 0.1 Sodium 139 Potassium 3.7 Chloride 100 L Carbon Dioxide 30 Anion Gap 9.0 BUN 27 H Creatinine 1.0 Estimated GFR (MDRD) 74 L Glucose 131 H Calcium 8.6 Total Bilirubin 0.5 AST 19 ALT 21 Alkaline Phosphatase 74 Troponin I < 0.04 Total Protein 6.4 L Albumin 3.8 Globulin 2.6 Albumin/Globulin Ratio 1.5 Lipase 31 04/06/17 21:18 WBC RBC Hgb Hct MCV MCH MCHC RDW Plt Count MPV Neut # Lymph # Carver # Eos # Baso # Absolute Nucleated RBC Nucleated RBC % Sodium Potassium Chloride Carbon Dioxide Anion Gap BUN Creatinine Estimated GFR (MDRD) Glucose Calcium Total Bilirubin AST ALT Alkaline Phosphatase Troponin I < 0.04 Total Protein Albumin Globulin Albumin/Globulin Ratio Lipase PD MEDICAL DECISION MAKING - ED course ED course: 72-year-old gentleman with known history of coronary disease who presents with episodic chest pain after finishing a prednisone taper that is very likely to be gastritis. By history it was gastritis. He was pain-free on arrival and his EKG was nonischemic. Initial troponin was negative and a second troponin was as well. He had a very brief episode of pain here while he sat up, his repeat EKG was without change. By the time we were able to administer him a GI cocktail the pain was gone again. Departure - Departure Disposition: 01 Home, Self Care Clinical Impression: Chest pain Qualifiers: Chest pain type: unspecified Qualified Code(s): R07.9 - Chest pain, unspecified Gastritis Qualifiers: Gastritis type: superficial Chronicity: acute Gastritis bleeding: without bleeding Qualified Code(s): K29.00 - Acute gastritis without bleeding Condition: Good Record reviewed to determine appropriate education?: Yes Instructions: ED Gastritis, ED Chest Pain NonCardiac Prescriptions: Sucralfate [Carafate] 1 gm PO ACHS #40 tablet Comments: Call your doctor to arrange a follow-up appointment, make the next available appointment. In the interim, return anytime if worse or if new symptoms develop. Your blood pressure was elevated today on check into the emergency department. This does not mean that you have hypertension, it is a common phenomenon to come to the emergency department and have elevated blood pressure. I recommend that she see your primary care physician within the week to have it rechecked when you are feeling better.
[2017-04-06 19:27] LABS: BASOPHILS % (AUTO) 0.5 %; EOSINOPHILS # (AUTO) 0.2 10^3/uL (0.0-0.7); EOSINOPHILS % (AUTO) 2.2 %; HCT - HEMATOCRIT 37.1 % (42.0-52.0); HGB - HEMOGLOBIN 11.9 g/dL (14.0-18.0); LYMPHOCYTES # (AUTO) 1.3 10^3/uL (1.5-3.5); LYMPHOCYTES % (AUTO) 14.1 %; MEAN CORPUSCULAR HEMOGLOBIN 23.9 pg (27.0-31.0); MEAN CORPUSCULAR HGB CONC 32.1 g/dL (32.0-36.0); MEAN CORPUSCULAR VOLUME 74.5 fL (80.0-94.0); MEAN PLATELET VOLUME 8.2 fL (7.4-11.4); MONOCYTES # (AUTO) 0.7 10^3/uL (0.0-1.0); MONOCYTES % (AUTO) 7.8 %; NEUTROPHILS # (AUTO) 7.2 10^3/uL (1.5-6.6); NEUTROPHILS % (AUTO) 75.4 %; NUCLEATED RED BLOOD CELLS AUTO 0.1 /100WBC; RED BLOOD COUNT 4.99 10^6/uL (4.70-6.10); RED CELL DISTRIBUTION WIDTH 23.6 % (12.0-15.0); UNCORRECTED WHITE BLOOD COUNT 9.5 x10^3/uL; WHITE BLOOD COUNT 9.5 x10^3/uL (4.8-10.8)
[2017-04-06] MEDS ORDERED: PANTOPRAZOLE 40 MG VIAL ONE (19:27)
[2017-04-06 19:38] LABS: ALBUMIN/GLOBULIN RATIO 1.5 (1.0-2.2); BILIRUBIN,TOTAL 0.5 mg/dL (0.2-1.0); CALCIUM 8.6 mg/dL (8.5-10.3); POTASSIUM 3.7 mmol/L (3.5-5.0); TOTAL PROTEIN 6.4 g/dL (6.7-8.2)
[2017-04-06] MEDS ORDERED: MAG HYDROX/AL HYDROX/SIMETH 30 ML UDC PO STA (21:27)
[2017-04-06] MEDS ORDERED: LIDOCAINE VISCOUS 2% 15 ML UDC MM STA (21:27)
[2017-04-06] MEDS ORDERED: LIDOCAINE VISCOUS 2% 15 ML UDC MM ONE (21:33)
[2017-04-06] MEDS ORDERED: MAG HYDROX/AL HYDROX/SIMETH 30 ML UDC ONE (21:33)
[2017-04-06 22:05] VITALS: BP 145/84
== END 2017-04-06 22:01 | disposition home or self-care (01) ==
LOC: ED 18:37
DX: R07.9 Chest pain, unspecified (principal); K29.00 Acute gastritis without bleeding; R03.0 Elevated blood-pressure reading, without diagnosis of hypertension; E03.9 Hypothyroidism, unspecified; Z87.891 Personal history of nicotine dependence
CPT/HCPCS: 36415; 80053; 83690; 84484; 85025; 93005; 96374; 99283; 99284; A9270

== ENCOUNTER 2017-08-01 12:47 | Outpatient (CLI) | payer MEDICARE, BC | END 2017-08-01 12:48 | disposition home or self-care (01) | LOC: LAB 12:47 | PROVIDERS: ATTEND Radiology Radiation Oncology | DX: Z85.46 Personal history of malignant neoplasm of prostate (principal) | CPT/HCPCS: 36415; 84153 ==

== ENCOUNTER 2017-10-28 20:12 | Emergency (ER) | payer MEDICARE, BC ==
[2017-10-28 20:47] LABS: BASOPHILS # (AUTO) 0.1 10^3/uL (0.0-0.1); BASOPHILS % (AUTO) 1.2 %; EOSINOPHILS # (AUTO) 0.1 10^3/uL (0.0-0.7); EOSINOPHILS % (AUTO) 2.1 %; HGB - HEMOGLOBIN 13.5 g/dL (14.0-18.0); LYMPHOCYTES # (AUTO) 1.2 10^3/uL (1.5-3.5); LYMPHOCYTES % (AUTO) 18.3 %; MEAN CORPUSCULAR HEMOGLOBIN 25.9 pg (27.0-31.0); MEAN CORPUSCULAR HGB CONC 32.9 g/dL (32.0-36.0); MEAN CORPUSCULAR VOLUME 78.7 fL (80.0-94.0); MEAN PLATELET VOLUME 8.6 fL (7.4-11.4); MONOCYTES # (AUTO) 0.5 10^3/uL (0.0-1.0); MONOCYTES % (AUTO) 7.1 %; NEUTROPHILS # (AUTO) 4.7 10^3/uL (1.5-6.6); NEUTROPHILS % (AUTO) 71.3 %; PLT - PLATELET COUNT 204 10^3/uL (130-450); RED BLOOD COUNT 5.19 10^6/uL (4.70-6.10); RED CELL DISTRIBUTION WIDTH 15.4 % (12.0-15.0); WHITE BLOOD COUNT 6.6 x10^3/uL (4.8-10.8)
[2017-10-28 20:56] LABS: ALBUMIN 4.6 g/dL (3.2-5.5); ALBUMIN/GLOBULIN RATIO 1.4 (1.0-2.2); BILIRUBIN,TOTAL 0.2 mg/dL (0.2-1.0); TOTAL PROTEIN 7.9 g/dL (6.7-8.2)
--- NOTE | 2017-10-28 21:09 | ED Physician Documentation ---
PD HPI ALTERED MENTAL STATUS - Stated complaint Stated Complaint: CONFUSION - Chief complaint Chief Complaint: Neuro - History obtained from History obtained from: Patient, Family () - History of Present Illness Timing - onset: How many days ago (2) Timing - duration: Days (2) Timing - details: Gradual onset, Still present Quality / character: Confused (His partner says she has noticed him having some trouble with remembering simple/common things, did poorly at playing cards, seemed confused - all noted in just the past 2 days. He is usually very bright and capable (reads, conversant, card games, crossword puzzles, etc) so this is very unusual. He denies headaches, focal weakness, recent injury. He does say he has had some blurred vision the past few days, but no loss of visual hartman.) Associated symptoms: No: Fever, Headache, NVD Contributing factors: No: Anticoagulated, Recent illness, Recent injury, Intoxicated Basline status: Alert and oriented X 3, Ambulatory Similar symptoms before: Has not had sx before Recently seen: Not recently seen Review of Systems Constitutional: denies: Fever, Chills, Myalgias Eyes: reports: Decreased vision. denies: Loss of vision Nose: denies: Rhinorrhea / runny nose, Congestion Throat: denies: Sore throat Cardiac: denies: Chest pain / pressure, Palpitations Respiratory: denies: Dyspnea, Cough GI: denies: Abdominal Pain, Nausea, Vomiting, Diarrhea : denies: Dysuria, Frequency Skin: denies: Rash, Lesions Neurologic: reports: Confused. denies: Focal weakness, Numbness, Altered mental status, Headache, Head injury Endocrine: denies: Weight loss, Easy bruising / bleeding Immunocompromised: denies: Immunocompromised PD PAST MEDICAL HISTORY - Past Medical History Cardiovascular: Angina, Atrial fibrillation Respiratory: Asthma Neuro: None Endocrine/Autoimmune: HyPOthyroidism GI: GERD : None, Other HEENT: None Psych: Depression Musculoskeletal: Osteoarthritis, Gout Derm: Eczema - Past Surgical History Past Surgical History: Yes General: Cholecystectomy, Appendectomy, Bowel surgery, Colonoscopy, EGD, Other Ortho: Arthroscopic surgery HEENT: Tonsil/Adenoidectomy - Present Medications Home Medications: Ambulatory Orders Medication Instructions Recorded Confirmed Levocetirizine Dihydrochloride 5 mg PO DAILY 10/22/16 01/19/17 [Xyzal] Levothyroxine Sodium 50 mcg PO QDAC 10/22/16 02/19/17 Meloxicam 15 mg PO DAILY 10/22/16 02/19/17 Tamsulosin [Flomax] 0.4 mg PO DAILY capsule 10/23/16 02/19/17 Loratadine/Pseudoephedrine 1 tab PO DAILY 01/19/17 01/19/17 [Claritin-D 24 Hour Tablet] Sucralfate [Carafate] 1 gm PO ACHS #40 tablet 04/06/17 - Allergies Allergies/Adverse Reactions: Allergies Allergy/AdvReac Type Severity Reaction Status Date / Time piroxicam [From Feldene] Allergy Unknown Verified 10/28/17 20:19 - Social History Does the pt smoke?: No Smoking Status: Never smoker Does the pt drink ETOH?: Yes Does the pt have substance abuse?: No - Immunizations Immunizations are current?: Yes - POLST Patient has POLST: No PD ED PE NORMAL - Vitals Vital signs reviewed: Yes - General General: Alert and oriented X 3, No acute distress, Well developed/nourished - HEENT HEENT: Atraumatic, PERRL, EOMI, Ears normal, Moist mucous membranes, Pharynx benign - Neck Neck: Supple, no meningeal sign, No adenopathy, No JVD, No bruit - Cardiac Cardiac: RRR, No murmur - Respiratory Respiratory: Clear bilaterally - Abdomen Abdomen: Soft, Non tender - Derm Derm: Normal color, Warm and dry - Extremities Extremities: No deformity, No tenderness to palpate, Normal ROM s pain - Neuro Neuro: Alert and oriented X 3, rock wool insulator 2-12 intact, No motor deficit, No sensory deficit, Normal speech, Other (NIHSS showed difficulty with some word reading and object naming; else was okay. ) Eye Opening: Spontaneous Motor: Obeys Commands Verbal: Oriented GCS Score: 15 Results - Vitals Vitals: Vital Signs - 24 hr 10/28/17 10/28/17 10/28/17 20:16 21:53 23:00 Temperature 36.9 C 36.9 C Heart Rate 88 75 75 Respiratory 15 18 16 Rate Blood Pressure 154/77 H 144/73 H 133/75 H O2 Saturation 97 95 93 10/28/17 10/29/17 23:39 00:42 Temperature Heart Rate 78 73 Respiratory 17 15 Rate Blood Pressure 142/78 H 136/74 H O2 Saturation 96 94 Oxygen O2 Source Room air - Labs Labs: Laboratory Tests 10/28/17 10/28/17 10/28/17 20:25 20:28 20:32 WBC 6.6 RBC 5.19 Hgb 13.5 L Hct 40.9 L MCV 78.7 L MCH 25.9 L MCHC 32.9 RDW 15.4 H Plt Count 204 MPV 8.6 Neut # 4.7 Lymph # 1.2 L [place] # 0.5 Eos # 0.1 Baso # 0.1 Absolute Nucleated RBC 0.00 Nucleated RBC % 0.1 ESR Sodium Potassium Chloride Carbon Dioxide Anion Gap BUN Creatinine Estimated GFR (MDRD) Glucose POC Whole Bld Glucose 128 H Calcium Magnesium Total Bilirubin AST ALT Alkaline Phosphatase Total Protein Albumin Globulin Albumin/Globulin Ratio Lipase Urine Color YELLOW Urine Clarity CLEAR Urine pH 6.5 Ur Specific [place] 1.015 Urine Protein 30 H Urine Glucose (UA) NEGATIVE Urine Ketones NEGATIVE Urine Occult Blood TRACE-INTA Urine Nitrite NEGATIVE Urine Bilirubin NEGATIVE Urine Urobilinogen 0.2 (NORMAL) Ur Leukocyte Esterase NEGATIVE Urine RBC 0-5 Urine WBC 0-3 Ur Squamous Epith Cells RARE Squamous Urine Bacteria None Seen Ur Microscopic Review INDICATED Urine Culture Comments NOT INDICATED 10/28/17 10/28/17 10/28/17 20:32 20:32 20:32 WBC RBC Hgb Hct MCV MCH MCHC RDW Plt Count MPV Neut # Lymph # [place] # Eos # Baso # Absolute Nucleated RBC Nucleated RBC % ESR 18 Sodium 138 Potassium 3.5 Chloride 99 L Carbon Dioxide 32 Anion Gap 7.0 BUN 28 H Creatinine 1.0 Estimated GFR (MDRD) 74 L Glucose 150 H POC Whole Bld Glucose Calcium 9.0 Magnesium 2.3 Total Bilirubin 0.2 AST 21 ALT 23 Alkaline Phosphatase 94 Total Protein 7.9 Albumin 4.6 Globulin 3.3 Albumin/Globulin Ratio 1.4 Lipase 25 Urine Color Urine Clarity Urine pH Ur Specific [place] Urine Protein Urine Glucose (UA) Urine Ketones Urine Occult Blood Urine Nitrite Urine Bilirubin Urine Urobilinogen Ur Leukocyte Esterase Urine RBC Urine WBC Ur Squamous Epith Cells Urine Bacteria Ur Microscopic Review Urine Culture Comments - Rads (name of study) brain CT Radiology: Prelim report reviewed, Discussed with rads (left anterior lobe mass c/w likely glioblastoma (versus other tumor or abscess), with surrounding edema and 6 mm midline shift. ), EMP read contemporaneously PD MEDICAL DECISION MAKING - ED course Complexity details: reviewed results, considered differential, d/w patient, d/w family, d/w fitness sales consultant (Dr. Celso Kaur therapeutic recreation specialist for [facility] - accepts patient transfer to [facility]. ) Departure - Departure Disposition: 02 Transfer Acute Care Hosp Clinical Impression: Confusion, Brain tumor, Brain edema Condition: Stable Record reviewed to determine appropriate education?: Yes
[2017-10-28] MEDS ORDERED: IOPAMIDOL-300 100 ML VIAL ONE (21:53)
[2017-10-28] MEDS ORDERED: IOPAMIDOL-300 100 ML VIAL IVP ONE (22:16)
[2017-10-28 22:38] LABS: BILIRUBIN,URINE NEGATIVE (NEGATIVE); GLUCOSE, URINE (UA) NEGATIVE (NEGATIVE); KETONES,URINE (UA) NEGATIVE (NEGATIVE); LEUKOCYTE ESTERASE, URINE NEGATIVE (NEGATIVE); NITRITE,URINE NEGATIVE (NEGATIVE); OCCULT BLOOD,URINE TRACE-INTA (NEGATIVE); PH,URINE 6.5 PH (5.0-7.5); PROTEIN,URINE 30 mg/dL (NEGATIVE); UROBILINOGEN,URINE 0.2 (NORMAL) E.U./dL (NORMAL)
[2017-10-28 22:41] LABS: CLARITY,URINE CLEAR (CLEAR)
--- NOTE | 2017-10-28 22:44 | CT Report ---
EXAM: CT ANGIOGRAM HEAD. CT SCAN OF THE HEAD WITHOUT AND WITH CONTRAST. EXAM DATE: 10/28/2017 10:20 PM CLINICAL HISTORY: Confused for 2 days. COMPARISON: None. TECHNIQUE: - CT Scan Head: Using a multidetector scanner, axial images were acquired from the foramen magnum to the skull vertex prior to and following contrast administration. - CT Angiogram: Using a multidetector scanner, high-resolution axial images were acquired from the sk ull base through vertex following rapid infusion of intravenous contrast. Reformats: Multiplanar MIP reformats were reconstructed. Nascet criteria used for stenosis measurement. IV Contrast: 80 cc Isovue-300. In accordance with CT protocol optimization, one or more of the following dose reduction techniques w ere utilized for this exam: automated exposure control, adjustment of mA and/or KV based on patient s ize, or use of iterative reconstructive technique. FINDINGS: NON-CONTRAST HEAD: Parenchyma: There is a 4.1 x 4.3 cm peripherally enhancing low density mass in the left inferolateral frontal lobe. There is adjacent vasogenic edema. Extraaxial Spaces: There is effacement of sulci in the left cerebral hemisphere. No subdural or epidu ral collections identified. Ventricles: There is moderate effacement of anterior aspects of lateral ventricles. There is 6 mm of [id number] midline shift. Sinuses and orbits: Imaged paranasal sinuses, orbits, and mastoids show no significant abnormality. Bones: No evidence of fracture or calvarial defect. Other: None. POST-CONTRAST HEAD: Left frontal mass as above. No additional enhancing abnormality. Normal opacifica tion of venous sinuses. CT ANGIOGRAM HEAD: RIGHT: Internal Carotid artery: No evidence of dissection. No evidence of aneurysm along the intracranial IC A. Anterior Cerebral Artery: Patent without significant stenosis, aneurysm, or vascular malformation. Middle Cerebral Artery: Patent without significant stenosis, aneurysm, or vascular malformation. Posterior Cerebral Artery: Patent without significant stenosis, aneurysm, or vascular malformation. Vertebral Artery: Patent without significant stenosis. No evidence of dissection. LEFT: Internal Carotid artery: No evidence of dissection. No evidence of aneurysm along the intracranial IC A. Anterior Cerebral Artery: Patent without significant stenosis, aneurysm, or vascular malformation. Middle Cerebral Artery: Patent without significant stenosis, aneurysm, or vascular malformation. Posterior Cerebral Artery: Patent without significant stenosis, aneurysm, or vascular malformation. Vertebral Artery: Patent without significant stenosis. No evidence of dissection. CENTRAL: Anterior Communicating Artery: Patent. No aneurysm. Basilar Artery: Patent without significant stenosis. No aneurysm. DURAL VENOUS SINUSES AND MAJOR CENTRAL VEINS: Patent. IMPRESSION: CT Head: 4.3 cm left frontal peripherally enhancing mass with moderate mass effect with resultant 6 m m [id number] midline shift. Differential considerations include high-grade glioma, metastatic dise ase, or abscess. MRI with and without contrast suggested for better characterization. CTA Head: No intra-cranial stenosis or aneurysm. RADIA The above findings were discussed with Dr. Dimas by Dr. Chris Crowley at 22:35 hrs on 10/28/17. Referring Provider Line: [phone] SITE ID: [id number]
[2017-10-28 22:50] LABS: BACTERIA,URINE None Seen /HPF (None Seen); RBC,URINE 0-5 /HPF (0-5); SQUAMOUS EPITHELIAL CELL,UR RARE Squamous (<= Few)
[2017-10-28] MEDS ORDERED: levETIRAcetam INJ 500 MG in SODIUM CHLORIDE 0.9% 100ML 100 ML IV STA (23:22)
[2017-10-28] MEDS ORDERED: DEXAMETHASONE 10 MG/ML VIAL IVP STA (23:22)
[2017-10-29 04:07] VITALS: BP 137/87
== END 2017-10-29 04:10 | disposition short-term general hospital (02) ==
LOC: ED 20:12
DX: R41.0 Disorientation, unspecified (principal); D49.6 Neoplasm of unspecified behavior of brain; G93.6 Cerebral edema; E03.9 Hypothyroidism, unspecified; I48.91 Unspecified atrial fibrillation
CPT/HCPCS: 36415; 70496; 80053; 81001; 83690; 83735; 85025; 85651; 93005; 96365; 96375; 99285; Q9967; 81003; 87086; 99284

== ENCOUNTER 2018-01-08 11:52 | Outpatient (CLI) | payer MEDICARE, BC ==
[2018-01-08 12:55] LABS: BASOPHILS % (AUTO) 0.3 %; EOSINOPHILS % (AUTO) 0.5 %; LYMPHOCYTES % (AUTO) 4.5 %; MEAN CORPUSCULAR HEMOGLOBIN 28.3 pg (27.0-31.0); MEAN CORPUSCULAR HGB CONC 33.2 g/dL (32.0-36.0); MEAN CORPUSCULAR VOLUME 85.2 fL (80.0-94.0); MEAN PLATELET VOLUME 7.6 fL (7.4-11.4); MONOCYTES % (AUTO) 4.5 %; NEUTROPHILS % (AUTO) 90.2 %; PLT - PLATELET COUNT 129 10^3/uL (130-450); RED BLOOD COUNT 4.96 10^6/uL (4.70-6.10); RED CELL DISTRIBUTION WIDTH 17.8 % (12.0-15.0); WHITE BLOOD COUNT 8.9 x10^3/uL (4.8-10.8)
[2018-01-08 13:03] LABS: ABNORMAL LYMPHS % (MANUAL) 0 %; BAND NEUTROPHILS % (MANUAL) 0 %
[2018-01-08 13:31] LABS: EOSINOPHILS # (MANUAL) 0.1 10^3/uL (0-0.7); LYMPHOCYTES # (MANUAL) 0.5 10^3/uL (1.5-3.5); LYMPHOCYTES % (MANUAL) 5 %; METAMYELOCYTES % (MANUAL) 1 %; MONOCYTES # (MANUAL) 0.3 10^3/uL (0.0-1.0); NEUTROPHILS # (MANUAL) 7.9 10^3/uL (1.5-6.6); NEUTROPHILS % (MANUAL) 89 %
[2018-01-08 13:33] LABS: DIFFERENTIAL COMMENT MANUAL DIFFERENTIAL; PLATELET ESTIMATE, MANUAL DECREASED (<130,000) (NORMAL); PLATELET MORPHOLOGY NORMAL APPEARANCE (NORMAL); RBC MORPHOLOGY (MULTIPLE) 1+ ANISOCYTOSIS (NORMAL)
== END 2018-01-08 11:53 | disposition home or self-care (01) ==
LOC: LAB 11:52
PROVIDERS: ATTEND Radiology Radiation Oncology
DX: C71.9 Malignant neoplasm of brain, unspecified (principal)
CPT/HCPCS: 36415; 85025

== ENCOUNTER 2018-03-01 12:01 | Outpatient (CLI) | payer MEDICARE, BC ==
[2018-03-01 12:31] LABS: BASOPHILS % (AUTO) 0.2 %; EOSINOPHILS % (AUTO) 0.2 %; HGB - HEMOGLOBIN 14.6 g/dL (14.0-18.0); LYMPHOCYTES # (AUTO) 0.4 10^3/uL (1.5-3.5); LYMPHOCYTES % (AUTO) 5.9 %; MEAN CORPUSCULAR HEMOGLOBIN 30.1 pg (27.0-31.0); MEAN CORPUSCULAR HGB CONC 35.4 g/dL (32.0-36.0); MEAN PLATELET VOLUME 7.1 fL (7.4-11.4); MONOCYTES # (AUTO) 0.3 10^3/uL (0.0-1.0); MONOCYTES % (AUTO) 3.8 %; NEUTROPHILS # (AUTO) 6.6 10^3/uL (1.5-6.6); NEUTROPHILS % (AUTO) 89.9 %; PLT - PLATELET COUNT 108 10^3/uL (130-450); RED BLOOD COUNT 4.85 10^6/uL (4.70-6.10); RED CELL DISTRIBUTION WIDTH 18.1 % (12.0-15.0); WHITE BLOOD COUNT 7.3 x10^3/uL (4.8-10.8)
[2018-03-01 12:53] LABS: ALBUMIN 4.4 g/dL (3.2-5.5); ALBUMIN/GLOBULIN RATIO 1.6 (1.0-2.2); ALKALINE PHOSPHATASE 54 IU/L (42-121); ALT ALANINE AMINOTRANSFERASE 59 IU/L (10-60); AST ASPARTATE AMINOTRANSFERASE 33 IU/L (10-42); BUN - BLOOD UREA NITROGEN 29 mg/dL (6-20); CALCIUM 9.4 mg/dL (8.5-10.3); CARBON DIOXIDE - CO2 30 mmol/L (21-32); CHLORIDE 102 mmol/L (101-111); GFR - MDRD 73 (>89); GLUCOSE 141 mg/dL (70-100); SODIUM 142 mmol/L (135-145); TOTAL PROTEIN 7.2 g/dL (6.7-8.2)
[2018-03-01 13:22] LABS: BILIRUBIN,DIRECT < 0.1 mg/dL (0.1-0.5)
[2018-03-01 20:43] LABS: HB2 TOTAL 15.1 g/dL; HEMOGLOBIN A1C 0.56 g/dL; HEMOGLOBIN A1C % 5.5 % (4.6-6.2)
== END 2018-03-01 12:02 | disposition home or self-care (01) ==
LOC: LAB 12:01
PROVIDERS: ATTEND Physician Assistant
DX: D43.0 Neoplasm of uncertain behavior of brain, supratentorial (principal); R73.01 Impaired fasting glucose; E03.9 Hypothyroidism, unspecified; C71.9 Malignant neoplasm of brain, unspecified
CPT/HCPCS: 36415; 80053; 80177; 82248; 83036; 84443; 85025

== ENCOUNTER 2018-03-12 11:34 | Outpatient (CLI) | payer MEDICARE, BC ==
[2018-03-12 12:09] LABS: BASOPHILS % (AUTO) 0.2 %; HGB - HEMOGLOBIN 14.6 g/dL (14.0-18.0); LYMPHOCYTES # (AUTO) 0.5 10^3/uL (1.5-3.5); LYMPHOCYTES % (AUTO) 5.2 %; MEAN CORPUSCULAR HGB CONC 34.8 g/dL (32.0-36.0); MEAN CORPUSCULAR VOLUME 86.1 fL (80.0-94.0); MEAN PLATELET VOLUME 7.3 fL (7.4-11.4); MONOCYTES # (AUTO) 0.3 10^3/uL (0.0-1.0); MONOCYTES % (AUTO) 3.1 %; NEUTROPHILS # (AUTO) 8.4 10^3/uL (1.5-6.6); NEUTROPHILS % (AUTO) 91.5 %; PLT - PLATELET COUNT 193 10^3/uL (130-450); RED BLOOD COUNT 4.87 10^6/uL (4.70-6.10); RED CELL DISTRIBUTION WIDTH 18.6 % (12.0-15.0); WHITE BLOOD COUNT 9.2 x10^3/uL (4.8-10.8)
[2018-03-12 12:19] LABS: ALBUMIN 4.3 g/dL (3.2-5.5); ALBUMIN/GLOBULIN RATIO 1.5 (1.0-2.2); BILIRUBIN,TOTAL 0.7 mg/dL (0.2-1.0); CALCIUM 9.2 mg/dL (8.5-10.3); CREATININE 0.8 mg/dL (0.6-1.2); TOTAL PROTEIN 7.2 g/dL (6.7-8.2)
== END 2018-03-12 11:35 | disposition home or self-care (01) ==
LOC: LAB 11:34
PROVIDERS: ATTEND Physician Assistant
DX: D49.6 Neoplasm of unspecified behavior of brain (principal)
CPT/HCPCS: 36415; 80053; 85025

== ENCOUNTER 2018-03-17 12:51 | Outpatient (CLI) | payer MEDICARE, BC ==
--- NOTE | 2018-03-19 02:08 | Ultrasound Report ---
Reason: LOCALIZED SWELLING, MASS LUMP, NECK, GLIOBLASTOM Procedure Date: 03/17/2018 Accession Number: [id number] / [id number] Procedure: US - Head or Neck Soft Tissue CPT Code: FULL RESULT: EXAM: THYROID ULTRASOUND EXAM DATE: 03/17/2018 01:22 PM. CLINICAL HISTORY: LOCALIZED SWELLING, MASS LUMP, NECK, GLIOBLASTOM. COMPARISON: CT HEAD WITHOUT CONTRA 10/30/2017. TECHNIQUE: Real time sonographic imaging of the thyroid was performed by the barrel builder. Multiple business services sales representative static images were saved for review. FINDINGS: Scanning of the regions of palpable abnormalities identified by the patient was performed. On the right, 2 isoechoic nodular structures are identified at the sites of palpable abnormalities, the larger measuring 5.3 x 4.2 x 2.2 cm, and the smaller measuring 3.1 x 2.8 x 1.8 cm. On the left, 2 similar isoechoic structures are identified at the sites of palpable abnormalities, the larger measuring 5.0 x 3.9 x 2.4 cm, and the smaller measuring 4.0 x 2.7 x 1.4 cm. OTHER: None. IMPRESSION: Palpable abnormalities as above. These may represent the parotid and submandibular glands. The appearance is not typical for lymphadenopathy. Consider neck CT for further evaluation. Management recommendations are based on 2015 [place] [employer] Management Guidelines for Adult Patients with Thyroid Nodules and Differentiated Thyroid Cancer. RADIA
== END 2018-03-17 12:52 | disposition home or self-care (01) ==
LOC: DI 12:51
PROVIDERS: ATTEND Family Medicine
DX: R22.1 Localized swelling, mass and lump, neck (principal); C71.9 Malignant neoplasm of brain, unspecified
CPT/HCPCS: 76536

== ENCOUNTER 2018-03-21 15:23 | Outpatient (CLI) | payer MEDICARE, BC ==
[2018-03-21] MEDS ORDERED: IOPAMIDOL-300 100 ML VIAL ONE (15:29)
[2018-03-21] MEDS ORDERED: IOPAMIDOL-300 100 ML VIAL IVP ONE (15:59)
--- NOTE | 2018-03-22 11:59 | CT Report ---
Reason: LOCALIZED SWELLING, MASS AND LUMP,GLIOBLASTOMIA,BR Procedure Date: 03/21/2018 Accession Number: [id number] / [id number] Procedure: CT - Neck Soft Tissue W/ CPT Code: FULL RESULT: EXAM: CT SOFT TISSUE NECK WITH CONTRAST. EXAM DATE: 03/21/2018 03:44 PM. HISTORY: Reported history of localized neck swelling, mass and lump. Neck swelling reportedly is in the submandibular region. Also history of brain tumor, reportedly glioblastoma. COMPARISONS: None. TECHNIQUE: Routine soft tissue neck CT protocol. Reconstructions: Coronal and sagittal. IV contrast: ISOVUE 300 80mL. In accordance with CT protocol optimization, one or more of the following dose reduction techniques were utilized for this exam: automated exposure control, adjustment of mA and/or KV based on patient size, or use of iterative reconstructive technique. FINDINGS: No evidence for soft tissue swelling, edema, focal mass, adenopathy, cyst or abscess in the neck. Unremarkable appearance of the major salivary glands. The left lobe of the thyroid gland appears surgically absent, the right appears unremarkable. Unremarkable contours of the pharynx and larynx. Clear lung apices. Prominent chronic multilevel hypertrophic degenerative cervical spinal spondylosis. 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 Incidental torus mandibularis. No evidence for acute sinus or mastoid disease. IMPRESSION: No CT evidence for acute or significant focal soft tissue abnormality in the neck. RADIA
== END 2018-03-21 15:24 | disposition home or self-care (01) ==
LOC: DI 15:23
PROVIDERS: ATTEND Family Medicine
DX: R22.1 Localized swelling, mass and lump, neck (principal); C71.9 Malignant neoplasm of brain, unspecified
CPT/HCPCS: 70491; Q9967

== ENCOUNTER 2018-04-03 17:20 | Outpatient (CLI) | payer MEDICARE, BC ==
--- NOTE | 2018-04-03 17:38 | CONSULTATION NOTE ---
Palliative Care Consultation - Referral Referring Provider: Dr. Saul Patino Time of Visit: [id number] Referral setting: Home (It is a taxing considerable effort for the patient to leave the home secondary to fatigue also to facilitate a family conference) Referral Reason: Glioblastoma/Goals of Care - Information Sources Records reviewed: Previous records reviewed History/Review of Systems obtained from: Patient, Family (S/O Alice present for visit) Exam limitations: Clinical condition (patient with communication difficulties; word finding; denies confusion and can understand conversation) - History of Present Illness Brief History of Present Illness: This is a katie 73-year-old gentleman with a diagnosis of left frontal glioblastoma diagnosed in October 2017, status post resection and craniotomy with completed chemoradiation with concurrent Temodar. He had been getting consolidated Temodar on a monthly basis, has been on long-term dexamethasone, time to taper it off, and was having increased symptoms and was discovered to have increasing cyst. He is scheduled to have surgery on 04 11, with hopes that his neurologic symptoms will improve. Patient is ambulatory, has no hemiplegia, no swallowing problems, does have difficulty with word finding, he reports he can understand the information but cannot always answer. He does live alone independently, his girlfriend checks on him frequently, he is having more difficulty with sequencing being able to use electronic devices, the remote, including his phone. Patient's past medical history includes in 2017 a cholecystectomy for gangrenous cholecystitis, which had recurrent issues for needing drains, he reports he has not had any further abdominal issues. He also has a history of prostate cancer, with surgical intensive care. Does have a history of atrial fib, and has had difficulty with asthma in the past, but not since he has been on the Decadron. Patient and significant other Alice, do understand the seriousness of his illness, they are hoping for the best as far as improved quantity and quality of life, recognizing it is life limiting. Palliative care to meet with patient and SO for ongoing palliative care support for symptom management as well as goals of care. Medical/Surgical History - Past Medical History Cardiovascular: reports: Angina, Atrial fibrillation Respiratory: reports: Asthma Neuro: reports: Other (glioblastoma s/p chemoradiation) Endocrine/Autoimmune: reports: HyPOthyroidism GI: reports: GERD : reports: Benign prostate hypertrophy, Other (hx of prostate cancer) HEENT: reports: Chronic vision loss. denies: Chronic hearing loss Psych: reports: Depression Musculoskeletal: reports: Gout Derm: reports: Eczema MRSA Hx?: No - Past Surgical History General: reports: Cholecystectomy, Appendectomy, Bowel surgery, Colonoscopy, EGD, Other Ortho: reports: Arthroscopic surgery Neuro: reports: Craniotomy HEENT: reports: Tonsil/Adenoidectomy Social History - Living Situation Living arrangement: At home Living Situation: Alone Support System: Alice Haley His significant other, does not live with patient, but they have been together 8 years. She has been helping him navigate his medical decisions and care, as patient no longer can track. She does oversee his medications, makes his appointment, and helps him with decision-making. 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 He has a younger brother in [place], he is coming to help after his next surgery. he lives in [facility], has not applied for [facility] yet, has a supportive community of friends Family History - Family History Family History: Mother: (brother of renal cancer), Father: , Brother: Medications/Allergies - Medications Home Medications: Ambulatory Orders Medication Instructions Recorded Confirmed Levothyroxine Sodium 50 mcg PO QDAC 10/22/16 04/03/18 Tamsulosin [Flomax] 0.4 mg PO DAILY capsule 10/23/16 04/03/18 Clotrimazole Tamia 10 mg PO TID 04/03/18 04/03/18 Dexamethasone [Decadron] 4 mg PO DAILY 04/03/18 04/03/18 Levetiracetam [Keppra] 500 mg PO BID 04/03/18 04/03/18 Ondansetron [Zuplenz] 8 mg PO TID PRN 04/03/18 04/03/18 - Allergies Allergies/Adverse Reactions: Allergies Allergy/AdvReac Type Severity Reaction Status Date / Time piroxicam [From Feldene] Allergy Unknown Verified 10/28/17 20:19 Review of Systems - Constitutional Constitutional: reports: Fatigue (somewhat sedantary), Weight gain - Eyes Eyes: reports: Vision loss, Corrective lenses - Ears, Nose & Throat Ears, Nose & Throat: reports: Dental pain (had procedure done about a month ago; does grind teeth pain worse again), Dry mouth - Cardiovascular Cardiovascular: reports: Decr. exercise tolerance. denies: Chest pain - Respiratory Respiratory: denies: Cough, Wheezing, SOB at rest - Gastrointestinal Gastrointestinal: reports: Good appetite. denies: Constipation, Diarrhea, Reflux/heartburn - Genitourinary Genitourinary: denies: Incontinence - Musculoskeletal Musculoskeletal: reports: Stiffness, Muscle weakness - Integumentary Integumentary: reports: Dryness - Neurological Neurological: reports: Other (difficulty with communication/word finding speaking). denies: Headache, Memory problems - Psychiatric Psychiatric: reports: Other (insomnia). denies: Depression, Anxiety - Endocrine Endocrine: reports: Hypothyroidism - Hematologic/Lymphatic Hematologic/Lymphatic: denies: Recurrent infections - All Other Systems All Other Systems: reports: Reviewed and negative Physical Exam - Vital Signs Temperature: 96.5 C Pulse Rate: 72 Respiratory Rate: 18 O2 Saturation: 93 (ra @ rest) Blood Pressure: 122/78 - Physical Exam General Appearance: positive: No acute distress Eyes Bilateral: positive: Normal inspection ENT: positive: Other (white coated tongue; no s/s buccal yeast or spots/no pain) Neck: positive: Trachea midline, Other (thickened neck noted attributed most likely to steroids no acute findings on recent tests) Cardiovascular: positive: Regular rate & rhythm Respiratory: positive: Breath sounds nml Abdomen: positive: Non-tender, Soft, Nml bowel sounds, Other (rounded) Skin: positive: Pallor, Dryness Extremities: positive: No pedal edema, Other (gait with shuffled nature; wide stance) Neurologic/Psychiatric: positive: Oriented x3, Mood/affect nml, Weakness Palliative Care - POLST Patient has POLST: Yes POLST Status: DNR, Selective Treatment (completed at end of goals conversation) Pain: No pain Tiredness/Fatigue: Moderate (4-6) Drowsiness/Sedation: None Nausea: None Depression: None Anxiety: None Dyspnea: None Anorexia: None Sleep: Variable sleep pattern Constipation: No Feelings of wellbeing/Perceived Quality of Life: Fair, Acceptable, Worsening Performance Status: Patient does need assistance with transportation, meal prep, grocery shopping and oversight for medications. He currently is still able to bathe independently, ambulate around his apartment, he has had no falls. He is having increased trouble communicating, Alice makes all his appointments and provides interaction with healthcare providers - Palliative Care Discussion: Patient admits to being fairly pragmatic, he has been taking things just as they come, Alice reports he never complains. We did discuss the context of his goals of care, his pulse Eunice is full CPR. We reviewed his advanced directives, but is most important to him, and essentially expected outcome regarding his glioblastoma. They are currently hoping for the best, improvement from the surgery, and to continue on with therapies to extend both his quantity and quality of life. Though are both in agreement that allowing natural is more consistent with what he would like to have happen if something life threatening or he was at end-of-life. He is currently willing to accept ongoing chemotherapy, treat mean for reversible conditions but very clear that he does not want ventilation, or any extraordinary measures. He would currently except going to the hospital. We did discuss end of life, he would like to be at home, and hopes to be at home with hospice and family support. This was all translated into his [facility], questions were addressed and answered, care and is feeling much better prepared has moving forward into his surgery as he may have improvement or he may end up with more deficits with increased difficulty communicating Impression and Recommendations - Palliative Care Impression: This is a 73-year-old gentleman with a glioblastoma status post craniotomy, chemoradiation and ongoing chemotherapy. He is scheduled to have an increased cyst is been found in the cavern, hoping for decreased neuro symptoms as a result. At this point in time the plan is to continue on treatment path, but the focus on quality and quantity of life. Palliative care to provide ongoing support regarding pain and symptom management, coordination of care, and continued identification of goals Recommendations/Counseling Done: 1. Oral candidiasis. Patient does have a white thickened tongue, most likely this is the result of long-term Decadron. He does not have any active sores, or patches of candidiasis. He may benefit actually from just the weekly dose of Diflucan given the expectation he would continue on Decadron long-term. 2. Tooth pain. Instructed her to follow-up with her dentist, whether the pain is related to abscess and/or nerve damage to the tooth. He does have a pending surgery, may need to have antibiotics prior if active infection. She will make an appointment after he leaves today. 3. Glioblastoma. Patient does have residual deficits, currently is safe and doing okay at home, but communication is becoming more difficult. Did recommend [employer] to build access assistance and or call Alice in an urgent or emergent situation. Patient is scheduled for craniotomy 04/11, has preop with Dr. Patino tomorrow. Patient's current plan is to continue on oral chemotherapy schedule. He is actually tolerated it quite well with minimal side effects. 4. Advanced care planning. Counseling provided regarding goals of care, advanced care planning, completed the HE[facility] and answered all questions. Patient will need increased care particularly if he has ongoing deficits, will get a [employer] application to her to start the process. His brother is coming to give her some relief after the surgery, last time he needed 24 7 care after his last surgery, she is taken on most of his care decisions, and coordination as patient no longer can do this for himself. Thank you Dr. Patino for asking the palliative care consult service to be involved in care of your patient, given the seriousness of his illness and expected decline in the future, will continue to follow to support their goals for continued treatment hoping for outcome of quality and quantity of life. Time Spent: Time spent 75 minutes with greater than 50% of this done in counseling regarding goals of care, advanced care planning and anticipatory guidance. Palliative care to follow-up after surgery, evaluate further needs, patient and her care and will contact me sooner if something arises.
== END 2018-04-03 17:21 | disposition home or self-care (01) ==
LOC: PC 17:20
PROVIDERS: ATTEND Nurse Practitioner Adult Health
DX: Z51.5 Encounter for palliative care (principal); B37.0 Candidal stomatitis; C71.9 Malignant neoplasm of brain, unspecified; Z79.899 Other long term (current) drug therapy; R53.83 Other fatigue; R47.9 Unspecified speech disturbances; Z66 Do not resuscitate
CPT/HCPCS: 99345

== ENCOUNTER 2018-04-12 00:39 | Outpatient (CLI) | payer MEDICARE, BC | END 2018-04-12 00:40 | disposition critical access hospital (66) | LOC: EMS 00:39 | PROVIDERS: ATTEND Surgery | DX: R53.1 Weakness (principal) | CPT/HCPCS: A0425; A0429 ==

== ENCOUNTER 2018-04-12 00:44 | Emergency (ER) | payer MEDICARE, BC ==
[2018-04-12 01:30] LABS: ALBUMIN/GLOBULIN RATIO 1.3 (1.0-2.2); BILIRUBIN,TOTAL 1.9 mg/dL (0.2-1.0); CALCIUM 8.8 mg/dL (8.5-10.3); CREATININE 0.9 mg/dL (0.6-1.2); TOTAL PROTEIN 7.2 g/dL (6.7-8.2)
[2018-04-12] MEDS ORDERED: ACETAMINOPHEN 500 MG TABLET PO STA (01:32)
--- NOTE | 2018-04-12 01:33 | ED Physician Documentation ---
History of Present Illness - Stated complaint Stated Complaint: WEAKNESS - Chief complaint Chief Complaint: Neuro - History obtained from History obtained from: Family, EMS - History of Present Illness Timing: Today - Additonal information Additional information: Patient is a 73 year old male brought in my ems for generalized weakness and an episode of incontinence. According to family and ems, patient was diagnosed with a brain tumor in october of this year. Patient underwent a craniotomy and resection. three days ago patient patient had a revision to take out a cyst and was sent home yesterday after being seen in clinic and evaluated by PT/OT. After patient got home tonight he and an episode of urinary incontinence. The patient seemed generally weaker to the caregiver. Caregiver/partner called the neurosurgical team her recommended coming to the local emergency department. Upon my initial evaluation in the emergency department patient was a bit confused and repetitive, but the menagerie caretaker stated that this was typical for the patient. Review of Systems Unable to obtain: Confused PD PAST MEDICAL HISTORY - Past Medical History Cardiovascular: Angina, Atrial fibrillation Respiratory: Asthma Endocrine/Autoimmune: HyPOthyroidism GI: GERD : Benign prostate hypertrophy, Other HEENT: Chronic vision loss Psych: Depression Musculoskeletal: Gout Derm: Eczema - Past Surgical History Past Surgical History: Yes General: Cholecystectomy, Appendectomy, Bowel surgery, Colonoscopy, EGD, Other Ortho: Arthroscopic surgery Neuro: Craniotomy HEENT: Tonsil/Adenoidectomy - Present Medications Home Medications: Ambulatory Orders Medication Instructions Recorded Confirmed Levothyroxine Sodium 50 mcg PO QDAC 10/22/16 04/03/18 Tamsulosin [Flomax] 0.4 mg PO DAILY capsule 10/23/16 04/03/18 Clotrimazole Tamia 10 mg PO TID 04/03/18 04/03/18 Dexamethasone [Decadron] 4 mg PO DAILY 04/03/18 04/03/18 Levetiracetam [Keppra] 500 mg PO BID 04/03/18 04/03/18 Ondansetron [Zuplenz] 8 mg PO TID PRN 04/03/18 04/03/18 Dexamethasone [Decadron] 4 mg PO BIDWM #14 tablet 04/12/18 - Allergies Allergies/Adverse Reactions: Allergies Allergy/AdvReac Type Severity Reaction Status Date / Time piroxicam [From Feldene] Allergy Unknown Verified 04/12/18 01:08 - Social History Does the pt smoke?: No Smoking Status: Never smoker Does the pt drink ETOH?: Yes Does the pt have substance abuse?: No - Immunizations Immunizations are current?: Yes - POLST Patient has POLST: Yes PD ED PE NORMAL - Cardiac Cardiac: RRR, No murmur - Respiratory Respiratory: No respiratory distress - Abdomen Abdomen: Soft - Derm Derm: No rash PD ED PE EXPANDED - General General: Alert, No acute distress - HEENT HEENT: PERRL, EOMI, Pharynx normal, Dental decay. No: Dental abscess HEENT Visual: 1 - deformity (large surgical scar with no surrounding discharge or erthyema) - Neuro Neuro: Normal motor, Normal Sensation, Normal Speech, Other (Patient able to follow commands and had 5/5 strength bilateral upper and lower extremities. Patietn was confused with repetitive speech. ) Results - Vitals Vitals: Vital Signs - 24 hr 04/12/18 01:02 Temperature 38.4 C H Heart Rate 86 Respiratory 16 Rate Blood Pressure 147/75 H O2 Saturation 92 Oxygen O2 Source Room air - Labs Labs: Laboratory Tests 04/12/18 04/12/18 01:10 01:10 Sodium 132 L Potassium 4.7 Chloride 93 L Carbon Dioxide 30 Anion Gap 9.0 BUN 24 H Creatinine 0.9 Estimated GFR (MDRD) 83 L Glucose 114 H Lactic Acid 1.5 Calcium 8.8 Total Bilirubin 1.9 H AST 33 ALT 76 H Alkaline Phosphatase 50 Total Protein 7.2 Albumin 4.0 Globulin 3.2 Albumin/Globulin Ratio 1.3 Lipase 33 - Rads (name of study) ct head Radiology: Final report received, See rad report (post surgical changes, no new bleeding or edema) chest x-ray Radiology: Final report received (no infiltrate) PD MEDICAL DECISION MAKING - ED course Complexity details: reviewed old records, reviewed results, re-evaluated patient, considered differential, d/w family, d/w reimbursement consultant ED course: Patient was seen and examined at bedside. labs were drawn and imaging was ordered. patient was febrile and treated with tylenol. Patient was awake and alert and able to follow commands but he was not oriented to time, place or situation. Patient's partner stated that he was at his baseline. When patient returned from imaging the results were reviewed. There was improvement from his prior CT but no edema or acute bleed. patient's Neurosurgeon, Dr. Le was contacted and the case was discussed with her. She stated check the urine and chest x-ray due to the fever. Both of those things were performed but did no show a source of infection. Patient's fever did improve. Dr. Le was called back and she stated that the patient could go home, and to start decadron 4mg bid. with partner was made aware and was comfortable with the plan. Family was given detailed discharge and follow up instructions and stable for discharge with close outpatient follow up. - Sepsis Event Vital Signs: Vital Signs - 24 hr 04/12/18 01:02 Temperature 38.4 C H Heart Rate 86 Respiratory 16 Rate Blood Pressure 147/75 H O2 Saturation 92 Oxygen O2 Source Room air Departure - Departure Disposition: 01 Home, Self Care Clinical Impression: Fever Condition: Stable Instructions: ED Fever Unconf Cause Follow-Up: primary,care provider [Other] - Tomorrow Prescriptions: Dexamethasone [Decadron] 4 mg PO BIDWM #14 tablet Comments: Dr. Le wants you to start decadron 4mg twice a day. You should call the office in the morning to touch base with them. They should be reaching out to you as well. You should return for persistent fevers, new worsening or uncontrollable symptoms.
[2018-04-12 01:48] LABS: BASOPHILS % (AUTO) 0.7 %; EOSINOPHILS % (AUTO) 0.1 %; HGB - HEMOGLOBIN 14.8 g/dL (14.0-18.0); LYMPHOCYTES % (AUTO) 5.1 %; MEAN CORPUSCULAR HEMOGLOBIN 30.6 pg (27.0-31.0); MEAN CORPUSCULAR HGB CONC 34.8 g/dL (32.0-36.0); MONOCYTES % (AUTO) 7.3 %; NEUTROPHILS % (AUTO) 86.8 %; PLT - PLATELET COUNT 124 10^3/uL (130-450); RED BLOOD COUNT 4.85 10^6/uL (4.70-6.10); RED CELL DISTRIBUTION WIDTH 17.3 % (12.0-15.0)
[2018-04-12 01:50] LABS: ABNORMAL LYMPHS % (MANUAL) 0 %
[2018-04-12 02:10] LABS: BAND NEUTROPHILS % (MANUAL) 6 %; DIFFERENTIAL COMMENT MANUAL DIFFERENTIAL; LYMPHOCYTES # (MANUAL) 0.6 10^3/uL (1.5-3.5); LYMPHOCYTES % (MANUAL) 6 %; METAMYELOCYTES % (MANUAL) 1 %; MONOCYTES # (MANUAL) 0.4 10^3/uL (0.0-1.0); MYELOCYTES % (MANUAL) 1 %; NEUTROPHILS # (MANUAL) 8.8 10^3/uL (1.5-6.6); NEUTROPHILS % (MANUAL) 82 %; PLATELET ESTIMATE, MANUAL DECREASED (<130,000) (NORMAL); RBC MORPHOLOGY (MULTIPLE) NORMAL APPEARANCE (NORMAL)
--- NOTE | 2018-04-12 02:34 | CT Report ---
Reason: recent craniotomy, fever Procedure Date: 04/12/2018 Accession Number: [id number] / [id number] Procedure: CT - Head W/O CPT Code: FULL RESULT: EXAM: CT HEAD EXAM DATE: 04/12/2018 01:54 AM. CLINICAL HISTORY: Recent craniotomy, fever. COMPARISON: Head CT 04/09/2018 from [facility]. TECHNIQUE: Multiaxial CT images were obtained from the foramen magnum to the vertex. Reformats: Sagittal and coronal. IV contrast: None. In accordance with CT protocol optimization, one or more of the following dose reduction techniques were utilized for this exam: automated exposure control, adjustment of mA and/or KV based on patient size, or use of iterative reconstructive technique. FINDINGS: Left frontal convexity craniotomy as before. There is a small volume extracerebral collection subjacent to the craniotomy flap measuring up to 6 mm in thickness, diminished. Predominantly fluid containing cystic cavity within the left frontal lobe. Previously seen blood density in its dependent portion is no longer evident. An air-fluid level is seen within the cavity, diminished. The size of the cavity measures 5.9 x 4.1 cm, previously 7.0 x 4.6 cm, respectively. This has diminished in size. There is no midline shift, previously 4 mm to the right. Sulci are mildly effaced over the left frontal and parietal convexities, stable to diminished. Basal cisterns not effaced. Interval redistribution of gas density into the ventricular system, basal cisterns. The cavity in the left frontal lobe appears to directly communicate with the left frontal horn. There is gaseous distention of the right frontal horn and to a lesser extent both temporal horns, right greater than left. Ventricular size is otherwise unchanged. IMPRESSION: Cystic cavity within the left frontal lobe has diminished in size. Mass-effect is reduced. Cystic cavity appears contiguous with the left frontal horn. Interval redistribution of gas density into the ventricles and basal cisterns. No hemorrhage, worsening mass-effect, interval infarct or areas of edema identified. RADIA
[2018-04-12 03:57] LABS: BILIRUBIN,URINE NEGATIVE (NEGATIVE); GLUCOSE, URINE (UA) NEGATIVE (NEGATIVE); KETONES,URINE (UA) NEGATIVE (NEGATIVE); LEUKOCYTE ESTERASE, URINE NEGATIVE (NEGATIVE); NITRITE,URINE NEGATIVE (NEGATIVE); OCCULT BLOOD,URINE TRACE-INTA (NEGATIVE); PH,URINE 7.5 PH (5.0-7.5); PROTEIN,URINE 30 mg/dL (NEGATIVE); UROBILINOGEN,URINE 0.2 (NORMAL) E.U./dL (NORMAL)
[2018-04-12 03:58] LABS: CLARITY,URINE CLEAR (CLEAR)
[2018-04-12 04:06] LABS: BACTERIA,URINE Rare /HPF (None Seen); MUCUS,URINE Few Strands; RBC,URINE 0-5 /HPF (0-5); SQUAMOUS EPITHELIAL CELL,UR NONE SEEN (<= Few)
[2018-04-12 07:04] VITALS: BP 124/67
--- NOTE | 2018-04-13 09:43 | XRAY Report ---
Reason: fever, hx of surgery Procedure Date: 04/12/2018 Accession Number: [id number] / [id number] Procedure: XR - Chest 1 View X-Ray CPT Code: 77265 FULL RESULT: EXAM: CHEST RADIOGRAPHY EXAM DATE: 04/12/2018 03:09 AM. CLINICAL HISTORY: Fever, history of surgery. COMPARISON: None. TECHNIQUE: 1 view. FINDINGS: Lungs/Pleura: No focal opacities evident. No pleural effusion. No pneumothorax. Mediastinum: The heart is not enlarged. There are no signs for congestive failure. There are no pleural effusions. Other: None. IMPRESSION: 1. No acute infiltrates. RADIA
== END 2018-04-12 06:50 | disposition home or self-care (01) ==
LOC: EDUNIT# → ED 00:44
DX: R50.9 Fever, unspecified (principal); I48.91 Unspecified atrial fibrillation; Z86.011 Personal history of benign neoplasm of the brain
CPT/HCPCS: 36415; 70450; 71045; 80053; 81001; 83605; 83690; 85025; 87040; 99283; A9270; 81003; 87086

== ENCOUNTER 2018-04-12 13:10 | Outpatient (CLI) | payer MEDICARE, BC ==
--- NOTE | 2018-04-12 19:42 | CONSULTATION NOTE ---
Palliative Care Follow Up - Referral Referring Provider: Dr. Saul Patino Time of Visit: [id number] Referral setting: Home (It is a taxing considerable effort for the patient to leave the home secondary to recent craniotomy, and generalized weakness.) Referral Reason: Glioblastoma/dehydration - Information Sources Records reviewed: Previous records reviewed History/Review of Systems obtained from: Patient, Friend (s/o Sonja present for visit) Exam limitations: Clinical condition (patient with language deficits and STM issues related to tumor) - History of Present Illness Update Brief HPI Update: This is a katie 73-year-old gentleman with a diagnosis of left frontal glioblastoma diagnosed in October 2017, status post resection and craniotomy with completed chemoradiation with concurrent Temodar. After this time is been getting consolidated Temodar on a monthly basis, has been on long-term dexamethasone and in attempt to taper it off was found to have increased symptoms. And workup was found to have a cyst that was increasing. The goal of the surgery on 04/11 was a hopes to improve his neurologic and symptoms. Patient discharged yesterday, pathology not complete but was mention of radiation necrosis. Patient did present with some incontinence, increased confusion and weakness and was seen in ED last night, and workup did have a follow-up CT head without contrast that did show the cystic cavity within the left frontal lobe had diminished in size, mass-effect was reduced, and no hemorrhage or worsening mass-effect or interval infarct or areas of edema were identified. Patient found in bedroom, with lights out, sleeping. Has not been up or drinking since return from the ED early a.m. Patient reports no appetite, denies any increased pain, headache, difficulty swallowing, or fever or chills. He denies shortness of breath or cough. He has not had any further incontinence. Compared to her last exam, patient actually is verbalizing more complete words, answering the questions appropriately, and does seem somewhat more oriented. He does not remember this surgery, I did is able to recall the ED visit yesterday. Patient does not present with any dysphagia, his gait is unsteady, his balance is poor. But he is able to follow with cueing. Patient presents afebrile today, blood pressure 122/64, pulse is 84 and O2 sats at 84%. He does have decreased breath sounds in his left lower lobe, he came home with incentive spirometer. Social History - Living Situation Living arrangement: At home Living Situation: Alone Support System: Alice Christine Is a significant other but does not live with patient. They have been together for 8 years. She has been overseeing his care, assisting him as he has become more dependent, and navigating the medical system. His brother is coming in tonight, will be giving her a break for about a week. His care is getting quite complicated and unclear how long he will be able to remain independent in his own home. Medications/Allergies - Medications Home Medications: Ambulatory Orders Medication Instructions Recorded Confirmed Levothyroxine Sodium 50 mcg PO QDAC 10/22/16 04/12/18 Tamsulosin [Flomax] 0.4 mg PO DAILY capsule 10/23/16 04/12/18 Clotrimazole Tamia 10 mg PO TID 04/03/18 04/12/18 Levetiracetam [Keppra] 500 mg PO BID 04/03/18 04/12/18 Ondansetron [Zuplenz] 8 mg PO TID PRN 04/03/18 04/12/18 Dexamethasone [Decadron] 4 mg PO BIDWM #14 tablet 04/12/18 04/12/18 - Allergies Allergies/Adverse Reactions: Allergies Allergy/AdvReac Type Severity Reaction Status Date / Time piroxicam [From Feldene] Allergy Unknown Verified 04/12/18 01:08 Review of Systems - Constitutional Constitutional: reports: Fatigue, Fever (presented to ED last night with temp 38.4; afebrile today), Weakness, Poor appetite - Eyes Eyes: reports: Vision loss, Corrective lenses - Ears, Nose & Throat Ears, Nose & Throat: reports: Dental pain, Dry mouth, Other (hx of candidiasis) - Cardiovascular Cardiovascular: reports: Lightheadedness, Decr. exercise tolerance - Respiratory Respiratory: reports: SOB with exertion. denies: Wheezing, SOB at rest - Gastrointestinal Gastrointestinal: reports: Poor appetite, Early satiety. denies: Nausea - Genitourinary Genitourinary: reports: Incontinence (had three episodes since discharge; none today thus far) - Musculoskeletal Musculoskeletal: reports: Stiffness, Muscle weakness, Other (balance worsening). denies: Assistive devices - Integumentary Integumentary: reports: Dryness, Other (surgical incision with craniotomy) - Neurological Neurological: reports: General weakness, Dizziness, Memory problems, Pre- existing deficit. denies: Headache - Psychiatric Psychiatric: denies: Depression, Anxiety - Endocrine Endocrine: reports: Other (elevated bs related to decadron) - All Other Systems All Other Systems: reports: Reviewed and negative Physical Exam - Vital Signs Temperature: 97.9 C Pulse Rate: 84 Respiratory Rate: 18 O2 Saturation: 92 (ra @ rest) Blood Pressure: 122/64 - Physical Exam General Appearance: positive: Mild distress Eyes Bilateral: positive: Normal inspection, Other (periorbital edema; conjunctivae reddened; eyes watery and sensitive to light) ENT: positive: Other (scattered white patches on tongue) Neck: positive: Trachea midline, Other (cushingnoid appearance) Cardiovascular: positive: Regular rate & rhythm Respiratory: positive: Other (decreased BS LLL). negative: Wheezes, Rales, Rhonchi Abdomen: positive: Non-tender, Soft, Nml bowel sounds, Other (rounded) Skin: positive: Pallor, Dryness, Wound (incision without s/s infection) Extremities: positive: No pedal edema, Other (some right foot drag; balance awk) Neurologic/Psychiatric: positive: Mood/affect nml, Disoriented to time, Weakness, Flat affect Palliative Care - POLST Patient has POLST: Yes POLST Status: DNR, Selective Treatment Pain: Pain improved, Location (incisional pain; denies headache) Tiredness/Fatigue: Severe (7-10) Drowsiness/Sedation: Moderate (4-6) Nausea: None Depression: Mild (1-3) Anxiety: Mild (1-3) Dyspnea: Moderate (4-6) Anorexia: Severe (7-10) Performance Status: Patient has been independent in his apartment up to the last 2 or 3 weeks, with this is what precipitated a follow-up and most recent craniotomy for cyst removal. Alice concerned rightly about patient safety and bathing, patient does have poor activity tolerance, has been quite sedentary. He does live in a small space. Did have PT OT eval at [facility], did recommend home health PT and OT, I concur with this and will follow through on a [id number] and obtain orders from his PCP - Palliative Care Discussion: Alice reports both are hopeful for some improvement in his cognitive and functional status with revision of the cyst. They do understand the seriousness of his illness, is quite a taxing considerable effort for them to get down to [facility] for appointments. Patient is to follow-up with surgeon in 2 weeks, to see oncologist next week. Patient's fatigue level is fairly high, and activity tolerance poor. Did discuss in the context of his current situation, that it is most important that they focus on calories and fluid intake as he does present with symptoms of dehydration, and has continued to have poor intake. Alice is looking forward to a break, his brother is coming out to provide support. This continues to be quite challenging and concerns for how to meet patient's needs in the future loom fairly large Results - Lab Results Lab results reviewed: Yes Impression and Recommendations - Palliative Care Impression: This is a 73-year-old gentleman with glioblastoma status post craniotomy, chemoradiation, and ongoing chemotherapy currently on hold. He completed his second craniotomy with revision of the cyst on 04/11, has had complications regarding fever and dehydration. Patient still at high risk for sequela of dehydration, concerns regarding safety and fall, but has very low symptom burden but currently post-op with acute concerns. Palliative care to provide support and coordination of care with the focus on quality of life issues. Recommendations/Counseling Done: 1. Dehydration. Did have patient get up and ambulate out into the front room, had patient drink 8 ounces while he was there. Instructed to drink 4-6 ounces every 2-3 hours while awake. Also reviewed fluids and strategies to entice patient to improve intake. Instructed also to use high content fluid foods staff, including ice cream, puddings, melons, and soups. Reviewed the seriousness of this, and high risk to return to the emergency room if does not comply. 2. Glioblastoma status post second craniotomy. Patient actually presents with some increased verbalization, appropriate answers, and orientation compared to our last visit. He has had his Decadron increased to 4 mg twice daily from 4 mg daily. Patient though has functional decline and functional deficits, would benefit particularly in the context of balance and safety from home PT and OT. Will follow up with PCP and ordering home care services. 3. Oral candidiasis it does appear somewhat improved, he is on atrocious, which he dislikes. Instructed to continue with oral good oral care and at least twice a day atrocious. 4.Generalized weakness. Again to be addressed by PT/OT. Did call [facility] though can obtain tub transfer bench for bathing, secondary concerns regarding safety. [id number]; patient is homebound secondary to his considerable and taxing effort for the patient leave the home secondary to fatigue and generalized weakness and balance problems. PT to provide home safety evaluation equipment recommendations and home exercise program. OT to provide equipment and bathing recommendations as well as upper extremity strengthening and ADL management. Time Spent: 50 minutes with greater than 50% of this done in counseling regarding management of dehydration signs and symptoms of concern to follow-up with the ED, coordination of care with home health services and PCP, and anticipatory guidance. Did offer to draw labs and or coordinate follow-up information neuro- oncologist may need to decrease trips to [facility] as difficult on both patient and caregiver.
== END 2018-04-12 13:11 | disposition home or self-care (01) ==
LOC: PC 13:10
PROVIDERS: ATTEND Nurse Practitioner Adult Health
DX: Z51.5 Encounter for palliative care (principal); E86.0 Dehydration; C71.9 Malignant neoplasm of brain, unspecified; Z98.890 Other specified postprocedural states; B37.0 Candidal stomatitis; Z79.899 Other long term (current) drug therapy; R53.83 Other fatigue; R63.0 Anorexia; R06.00 Dyspnea, unspecified
CPT/HCPCS: 99349

== ENCOUNTER 2018-05-04 14:30 | Outpatient (CLI) | payer MEDICARE, BC ==
--- NOTE | 2018-05-04 18:14 | CONSULTATION NOTE ---
Palliative Care Follow Up - Referral Referring Provider: Dr. Marcie Patino Time of Visit: [id number] Referral setting: Home Referral Reason: Glioblastoma - Information Sources Records reviewed: Previous records reviewed History/Review of Systems obtained from: Patient, Friend (s/o Alice present for visit) Exam limitations: Clinical condition (STM issues due to tumor but much improved) - History of Present Illness Update Brief HPI Update: This is a katie 73-year-old gentleman with a diagnosis of left frontal gliob lastoma diagnosed in October 2017, status post resection and craniotomy with completed chemoradiation with concurrent Temodar. At this point in time he is getting regular Temodar on a monthly basis, with his last treatment 04/26-04/30, tolerated it well with only mild nausea. He did have recent surgery on 04/11 to have a cyst resected, with the hope of improvement of deteriorating neurologic status. Patient actually has improved, he is much more articulate, reports improved memory, improved functional status, endurance, and language skills. He has been working with home health PT/OT and is getting ready for discharge. Patient was able to engage and answer most questions, some deference to his girlfriend Alice, but feeling much better. Patient is currently on Decadron taper, changing to 2 mg tomorrow. Reports he is having some wakefulness at night, gets up around 145, has something to eat, and then sleeps on and off through the day. His appetite is been good, perceives his functional status is improving, is to see Dr. Bernard on 05/30 to decrease the stress of frequent trips to [place]. He is also due for follow-up with Dr. Jaramillo and his radiation oncologist. Social History - Living Situation Living arrangement: At home Living Situation: Alone Support System: His significant other Alice and he had been together for 8 years. She does not live with patient but oversees his care, concerns are for the future when he becomes less dependent again. Current patient currently doing quite well but in agreement needs to have a long-term plan Medications/Allergies - Medications Home Medications: Ambulatory Orders Medication Instructions Recorded Confirmed Levothyroxine Sodium 50 mcg PO QDAC 10/22/16 05/06/18 Tamsulosin [Flomax] 0.4 mg PO DAILY capsule 10/23/16 05/06/18 Clotrimazole Tamia 10 mg PO TID 04/03/18 05/06/18 Levetiracetam [Keppra] 500 mg PO BID 04/03/18 05/06/18 Ondansetron [Zuplenz] 8 mg PO TID PRN 04/03/18 05/06/18 Dexamethasone [Decadron] 2 mg PO BIDWM 05/06/18 05/06/18 - Allergies Allergies/Adverse Reactions: Allergies Allergy/AdvReac Type Severity Reaction Status Date / Time piroxicam [From Feldene] Allergy Unknown Verified 04/12/18 01:08 Review of Systems - Constitutional Constitutional: reports: Fatigue, Weight stable. denies: Fever - Eyes Eyes: reports: Vision loss, Corrective lenses - Ears, Nose & Throat Ears, Nose & Throat: reports: Dry mouth - Cardiovascular Cardiovascular: reports: Decr. exercise tolerance. denies: Chest pain - Respiratory Respiratory: denies: Cough, SOB at rest - Gastrointestinal Gastrointestinal: reports: Nausea (with oral chemo; now resolved), Reflux/heartburn, Good appetite. denies: Constipation - Genitourinary Genitourinary: reports: Frequency, Nocturia - Musculoskeletal Musculoskeletal: reports: Stiffness, Muscle weakness (improving) - Integumentary Integumentary: reports: Dryness, Other (surgical incision) - Neurological Neurological: reports: General weakness, Memory problems (mild remembers 80-90% of time was having difficulty with neuro changes/cyst). denies: Headache, Dizziness - Psychiatric Psychiatric: denies: Depression, Anxiety - Endocrine Endocrine: reports: Hypothyroidism - Hematologic/Lymphatic Hematologic/Lymphatic: denies: Anemia, Recurrent infections - All Other Systems All Other Systems: reports: Reviewed and negative Physical Exam - Vital Signs Temperature: 96.8 C Pulse Rate: 63 Respiratory Rate: 18 O2 Saturation: 91 (ra @ rest) Blood Pressure: 122/64 - Physical Exam General Appearance: positive: No acute distress, Alert Eyes Bilateral: positive: Other (mild periorbital edema; corneal swelling) ENT: negative: Oral lesions Neck: positive: Trachea midline, Other (full cushingnoid neck; firm) Cardiovascular: positive: Regular rate & rhythm Respiratory: positive: Diminished in bases. negative: Wheezes, Rales, Rhonchi Abdomen: positive: Non-tender, Nml bowel sounds, Other (rounded attributed to steriods) Skin: positive: Pallor, Wound (left craniotomy incision with dried eschar; no s/s infection; has been worried about getting wet; inst. can shower now out several weeks; gently wash no scrubbing but should improved) Extremities: positive: Full ROM, No pedal edema Neurologic/Psychiatric: positive: Oriented x3, Mood/affect nml, Other (some word finding; but much improved;) Palliative Care - POLST Patient has POLST: Yes POLST Status: DNR, Selective Treatment Pain: No pain Tiredness/Fatigue: Moderate (4-6), Comment (sleeping patterns off) Drowsiness/Sedation: Mild (1-3) Nausea: Mild (1-3) (with chemo) Depression: None Anxiety: None Anorexia: Mild (1-3) (improved intake) Sleep: Variable sleep pattern Constipation: No Feelings of wellbeing/Perceived Quality of Life: Good, Acceptable, Improved Performance Status: Patient still presents with some lower extremity weakness, but gait much more steady, only slight foot drag on the left. Patient able to get from sitting to standing with very little difficulty. Is now able to shower again independently without the shower chair. Is finishing up with home health therapies and pending discharge on Monday. Patient admits to little motivation to continue with activity, willing to consider ongoing outpatient treatment. - Palliative Care Discussion: Patient and SO feeling much encouragement with his improvement after his surgery. He does feel like he "popped out of" whenever he was in. He is conversant and able to engage, did spend some time processing though given the concern of his underlying diagnosis and decisions in the future. Agreed to have further discussion about end-of-life wishes so that if he does "lose his voice" that we will be following what is most important to him. He does recognize the seriousness of his illness, denies depression or anxiety with this. 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 Patient has continued to improve both functionally and cognitively, has finished and getting ready for discharge with home health. Palliative care to continue to provide support and coordination of care with focus on quality of life issues. Recommendations/Counseling Done: 1. Glioblastoma status post second craniotomy. Patient is continued to improve fairly dramatically. He is on Decadron taper again, starts 2 mg twice daily tomorrow. He has had improvement in functional status, balance improved, no falls. Is discharging from home health, will transition to outpatient therapy, agreed this would be good support. 2. Oral candidiasis. Patient continues on troches, Does appear currently under control. May taper off after he finishes Decadron. 3. Advanced care planning. Revisited need for long-term planning given the nature of his illness, and recent experience with change in cognitive and communication status. 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 Significant stress for Alice and patient to travel down to [place], will move every other month visits to Dr. Bernard. Palliative care to continue to be available for support. Time Spent: 60 minutes with greater than 50% of this done in counseling regarding anticipatory guidance, coordination of care for outpatient referral, home management and safety.
== END 2018-05-04 14:31 | disposition home or self-care (01) ==
LOC: PC 14:30
PROVIDERS: ATTEND Nurse Practitioner Adult Health
DX: Z51.5 Encounter for palliative care (principal); C71.9 Malignant neoplasm of brain, unspecified; Z98.890 Other specified postprocedural states; B37.0 Candidal stomatitis; Z79.899 Other long term (current) drug therapy; R53.83 Other fatigue; R53.1 Weakness; Z66 Do not resuscitate
CPT/HCPCS: 99350

== ENCOUNTER 2018-05-18 13:49 | Outpatient (CLI) | payer MEDICARE, BC ==
[2018-05-18 14:13] LABS: BASOPHILS % (AUTO) 0.6 %; EOSINOPHILS % (AUTO) 0.4 %; HGB - HEMOGLOBIN 13.7 g/dL (14.0-18.0); LYMPHOCYTES # (AUTO) 0.7 10^3/uL (1.5-3.5); LYMPHOCYTES % (AUTO) 10.4 %; MEAN CORPUSCULAR HEMOGLOBIN 32.2 pg (27.0-31.0); MEAN CORPUSCULAR HGB CONC 35.5 g/dL (32.0-36.0); MEAN CORPUSCULAR VOLUME 90.8 fL (80.0-94.0); MONOCYTES # (AUTO) 0.4 10^3/uL (0.0-1.0); MONOCYTES % (AUTO) 5.8 %; NEUTROPHILS # (AUTO) 5.2 10^3/uL (1.5-6.6); NEUTROPHILS % (AUTO) 82.8 %; PLT - PLATELET COUNT 145 10^3/uL (130-450); RED BLOOD COUNT 4.26 10^6/uL (4.70-6.10); RED CELL DISTRIBUTION WIDTH 15.5 % (12.0-15.0); WHITE BLOOD COUNT 6.3 x10^3/uL (4.8-10.8)
[2018-05-18 14:30] LABS: ALBUMIN 4.1 g/dL (3.2-5.5); ALBUMIN/GLOBULIN RATIO 1.5 (1.0-2.2); BILIRUBIN,DIRECT 0.1 mg/dL (0.1-0.5); BILIRUBIN,TOTAL 0.8 mg/dL (0.2-1.0); CALCIUM 8.8 mg/dL (8.5-10.3); CREATININE 0.9 mg/dL (0.6-1.2); TOTAL PROTEIN 6.9 g/dL (6.7-8.2)
== END 2018-05-18 13:50 | disposition home or self-care (01) ==
LOC: LAB 13:49
PROVIDERS: ATTEND Physician Assistant
DX: D43.0 Neoplasm of uncertain behavior of brain, supratentorial (principal)
CPT/HCPCS: 36415; 80053; 80076; 85025

== ENCOUNTER 2018-05-27 08:24 | Emergency (ER) | payer MEDICARE, BC ==
--- NOTE | 2018-05-27 08:47 | ED Physician Documentation ---
PD HPI BACK PAIN - Stated complaint Stated Complaint: LOWER BACK PX - Chief complaint Chief Complaint: Back Pain - History obtained from History obtained from: Patient, Family - History of Present Illness Timing - onset: Other (He has had about 3 days of back pain in the right flank region. It started gradually after lifting a small insecticide mixer and he thinks that was causative. It is definitely worse with certain motions including twisting. He denies any shortness of breath or radiation to the pain. He does have pertinent past medical history including dropped gallstones in that area with recurrent surgeries and long-term antibiotic treatments and drains in place although that is all resolved and a more recent diagnosis of glioblastoma status post 2 surgeries and on oral chemotherapy.) Review of Systems Ten Systems: 10 systems reviewed and negative Constitutional: denies: Fever, Chills Cardiac: denies: Chest pain / pressure, Palpitations Respiratory: denies: Dyspnea, Cough GI: denies: Abdominal Pain, Nausea, Vomiting PD PAST MEDICAL HISTORY - Past Medical History Past Medical History: Yes Cardiovascular: Angina, Atrial fibrillation Respiratory: Asthma Endocrine/Autoimmune: HyPOthyroidism GI: GERD : Benign prostate hypertrophy, Other HEENT: Chronic vision loss Psych: Depression Musculoskeletal: Gout Derm: Eczema Other Past Medical History: Glioblastoma 10/25 on chemotherapy - Past Surgical History Past Surgical History: Yes General: Cholecystectomy, Appendectomy, Bowel surgery, Colonoscopy, EGD, Other Ortho: Arthroscopic surgery Neuro: Craniotomy HEENT: Tonsil/Adenoidectomy - Present Medications Home Medications: Ambulatory Orders Medication Instructions Recorded Confirmed Levothyroxine Sodium 50 mcg PO QDAC 10/22/16 05/06/18 Tamsulosin [Flomax] 0.4 mg PO DAILY capsule 10/23/16 05/06/18 Clotrimazole Tamia 10 mg PO TID 04/03/18 05/06/18 Levetiracetam [Keppra] 500 mg PO BID 04/03/18 05/06/18 Cyclobenzaprine [Flexeril] 10 mg PO TID PRN #20 tablet 05/27/18 Hydrocodone/Acetaminophen 1 each PO Q4H PRN #15 tablet 05/27/18 [Hydrocodone-Acetamin 5-325 mg] - Allergies Allergies/Adverse Reactions: Allergies Allergy/AdvReac Type Severity Reaction Status Date / Time piroxicam [From Feldene] Allergy Unknown Verified 05/27/18 08:31 - Social History Does the pt smoke?: No Smoking Status: Never smoker Does the pt drink ETOH?: Yes Does the pt have substance abuse?: No - Immunizations Immunizations are current?: Yes - POLST Patient has POLST: Yes PD ED PE NORMAL - Vitals Vital signs reviewed: Yes - General General: Alert and oriented X 3, Other (He is tachycardic after walking back from triage but after a moment in the bed he becomes normocardic.) - HEENT HEENT: PERRL, EOMI - Neck Neck: Supple, no meningeal sign, No bony TTP - Cardiac Cardiac: RRR, No murmur - Respiratory Respiratory: No respiratory distress, Other (Very diminished at the right base, mildly diminished at the left base) - Abdomen Abdomen: Soft, Non tender - Back Back: No CVA TTP, No spinal TTP, Other (He points to the right flank at the site of the pain. I am unable to reproduce it on exam. He has several surgical scars in that area from prior gallstone issues.) - Extremities Extremities: Other (The patient has equal But diminished Achilles and patellar reflexes bilaterally. Normal sensation in all areas of the legs. Patient denies saddle anesthesia. Normal strength in flexion-extension at the ankles, knees, and flexion of the hips.) - Neuro Neuro: Alert and oriented X 3, Normal speech Results - Vitals Vitals: Vital Signs - 24 hr 05/27/18 05/27/18 05/27/18 08:28 08:38 09:00 Temperature 36.6 C Heart Rate 127 H 99 97 Respiratory 18 15 Rate Blood Pressure 163/116 H 137/86 H 152/95 H O2 Saturation 97 96 94 05/27/18 10:27 Temperature Heart Rate 99 Respiratory 16 Rate Blood Pressure 137/84 H O2 Saturation 93 Oxygen O2 Source Room air - Labs Labs: Laboratory Tests 05/27/18 05/27/18 05/27/18 08:50 08:50 08:50 WBC 5.7 RBC 4.23 L Hgb 13.4 L Hct 37.8 L MCV 89.3 MCH 31.8 H MCHC 35.5 RDW 15.8 H Plt Count 164 MPV 7.4 Neut # (Auto) 4.2 Lymph # (Auto) 0.7 L Russell # (Auto) 0.6 Eos # (Auto) 0.1 Baso # (Auto) 0.1 Absolute Nucleated RBC 0.01 Nucleated RBC % 0.1 Sodium 139 Potassium 3.4 L Chloride 103 Carbon Dioxide 28 Anion Gap 8.0 BUN 19 Creatinine 0.8 Estimated GFR (MDRD) 95 Glucose 119 H Lactic Acid 1.0 Calcium 8.8 Total Bilirubin 1.0 AST 42 ALT 105 H Alkaline Phosphatase 60 Total Protein 6.9 Albumin 3.9 Globulin 3.0 Albumin/Globulin Ratio 1.3 Lipase 30 Urine Color Urine Clarity Urine pH Ur Specific [place] Urine Protein Urine Glucose (UA) Urine Ketones Urine Occult Blood Urine Nitrite Urine Bilirubin Urine Urobilinogen Ur Leukocyte Esterase Ur Microscopic Review Urine Culture Comments 05/27/18 10:10 WBC RBC Hgb Hct MCV MCH MCHC RDW Plt Count MPV Neut # (Auto) Lymph # (Auto) Russell # (Auto) Eos # (Auto) Baso # (Auto) Absolute Nucleated RBC Nucleated RBC % Sodium Potassium Chloride Carbon Dioxide Anion Gap BUN Creatinine Estimated GFR (MDRD) Glucose Lactic Acid Calcium Total Bilirubin AST ALT Alkaline Phosphatase Total Protein Albumin Globulin Albumin/Globulin Ratio Lipase Urine Color YELLOW Urine Clarity CLEAR Urine pH 7.0 Ur Specific [place] 1.015 Urine Protein NEGATIVE Urine Glucose (UA) NEGATIVE Urine Ketones NEGATIVE Urine Occult Blood NEGATIVE Urine Nitrite NEGATIVE Urine Bilirubin NEGATIVE Urine Urobilinogen 0.2 (NORMAL) Ur Leukocyte Esterase NEGATIVE Ur Microscopic Review NOT INDICATED Urine Culture Comments NOT INDICATED - Rads (name of study) CT A/P Radiology: EMP read contemporaneously (Hepatic steatosis and a nonobstructing left nephrolith without ureterolith) 2v chest Radiology: EMP read contemporaneously (Tiny right pleural effusion without other acute abnormality) PD MEDICAL DECISION MAKING - ED course ED course: 73-year-old gentleman with complicated past medical history who presents with what on the face of it seems like uncomplicated muscular back pain but given his age and comorbidities a workup was performed to make sure that it was not something along the lines of a complication of his prolonged issues with his gallbladder previously or liver etc. Workup was negative. Urinalysis negative. He was advised of the left nephrolith but that should not be bothering him now. Departure - Departure Disposition: 01 Home, Self Care Clinical Impression: Brain tumor Back pain Qualifiers: Back pain location: low back pain Chronicity: acute Back pain laterality: right Sciatica presence: without sciatica Qualified Code(s): M54.5 - Low back pain Abdominal pain Qualifiers: Abdominal location: unspecified location Qualified Code(s): R10.9 - Unspecified abdominal pain Condition: Good Record reviewed to determine appropriate education?: Yes Instructions: ED Low Back Pain Injury Prescriptions: Cyclobenzaprine [Flexeril] 10 mg PO TID PRN #20 tablet PRN Reason: Spasms Hydrocodone/Acetaminophen [Hydrocodone-Acetamin 5-325 mg] 1 each PO Q4H PRN #15 tablet PRN Reason: Pain Comments: Call your doctor to arrange a follow-up appointment, make the next available appointment. In the interim, return anytime if worse or if new symptoms develop. Your blood pressure was elevated today on check into the emergency department. This does not mean that you have hypertension, it is a common phenomenon to come to the emergency department and have elevated blood pressure. I recommend that you see your primary care physician within the week to have it rechecked when you are feeling better.
[2018-05-27] MEDS ORDERED: IOPAMIDOL-300 100 ML VIAL ONE (08:55)
[2018-05-27 09:02] LABS: BASOPHILS # (AUTO) 0.1 10^3/uL (0.0-0.1); BASOPHILS % (AUTO) 1.3 %; EOSINOPHILS # (AUTO) 0.1 10^3/uL (0.0-0.7); EOSINOPHILS % (AUTO) 0.9 %; HGB - HEMOGLOBIN 13.4 g/dL (14.0-18.0); LYMPHOCYTES # (AUTO) 0.7 10^3/uL (1.5-3.5); LYMPHOCYTES % (AUTO) 13.1 %; MEAN CORPUSCULAR HEMOGLOBIN 31.8 pg (27.0-31.0); MEAN CORPUSCULAR HGB CONC 35.5 g/dL (32.0-36.0); MEAN CORPUSCULAR VOLUME 89.3 fL (80.0-94.0); MEAN PLATELET VOLUME 7.4 fL (7.4-11.4); MONOCYTES # (AUTO) 0.6 10^3/uL (0.0-1.0); MONOCYTES % (AUTO) 10.9 %; NEUTROPHILS # (AUTO) 4.2 10^3/uL (1.5-6.6); NEUTROPHILS % (AUTO) 73.8 %; PLT - PLATELET COUNT 164 10^3/uL (130-450); RED BLOOD COUNT 4.23 10^6/uL (4.70-6.10); RED CELL DISTRIBUTION WIDTH 15.8 % (12.0-15.0); WHITE BLOOD COUNT 5.7 x10^3/uL (4.8-10.8)
[2018-05-27 09:12] LABS: ALBUMIN 3.9 g/dL (3.2-5.5); ALBUMIN/GLOBULIN RATIO 1.3 (1.0-2.2); CALCIUM 8.8 mg/dL (8.5-10.3); CREATININE 0.8 mg/dL (0.6-1.2); TOTAL PROTEIN 6.9 g/dL (6.7-8.2)
[2018-05-27] MEDS ORDERED: IOPAMIDOL-300 100 ML VIAL IVP ONE (09:35)
--- NOTE | 2018-05-27 10:09 | CT Report ---
Reason: IV only, R flank pain Procedure Date: 05/27/2018 Accession Number: [id number] / [id number] Procedure: CT - Abdomen/Pelvis W/ CPT Code: FULL RESULT: EXAM: CT ABDOMEN AND PELVIS EXAM DATE: 05/27/2018 09:29 AM. CLINICAL HISTORY: IV only, R flank pain. COMPARISONS: None. TECHNIQUE: Routine helical CT imaging was performed through the abdomen and pelvis. IV contrast: ISOVUE 300 100mL. Enteric contrast: No. Reconstructions: Coronal and sagittal. In accordance with CT protocol optimization, one or more of the following dose reduction techniques were utilized for this exam: automated exposure control, adjustment of mA and/or KV based on patient size, or use of iterative reconstructive technique. FINDINGS: Lung Bases: Unremarkable. Liver: The liver is low in attenuation consistent with hepatic steatosis. Gallbladder/Bile Ducts: The gallbladder is absent. Spleen: Normal. Pancreas: Normal. Adrenal Glands: Normal. Kidneys: Normal. No masses or hydronephrosis. Peritoneal Cavity/Bowel: Normal. No free fluid, free air or adenopathy. No masses or acute inflammatory process. The appendix is not visualized. Pelvic Organs: The prostate is enlarged. The bladder is unremarkable. Vasculature: No aneurysms or other significant abnormality. Bones: No significant abnormality. Other: None. IMPRESSION: 1. No bowel obstruction or inflammatory process associated with the bowel. 2. The appendix is not visualized and there are no secondary signs of acute appendicitis. 3. No free air or fluid in the abdomen or pelvis. 4. Hepatic steatosis. 5. There is a nonobstructing 4 mm stone in the left kidney. No stones in the right kidney, right ureter or within the bladder. RADIA
--- NOTE | 2018-05-27 10:12 | XRAY Report ---
Reason: decreased R breath sounds, R flank pain Procedure Date: 05/27/2018 Accession Number: [id number] / [id number] Procedure: XR - Chest 2 View X-Ray CPT Code: 52369 FULL RESULT: EXAM: CHEST RADIOGRAPHY EXAM DATE: 05/27/2018 09:43 AM. CLINICAL HISTORY: Decreased R breath sounds, R flank pain. COMPARISON: Chest radiograph dated 04/12/2018. TECHNIQUE: 2 views. FINDINGS: Lungs/Pleura: Tiny right pleural effusion. No focal consolidation or pneumothorax. Mediastinum: Heart and mediastinal contours are unremarkable. Other: None. IMPRESSION: 1. Tiny right pleural effusion. 2. No focal consolidation or pneumothorax. RADIA
[2018-05-27] MEDS ORDERED: MORPHINE 10 MG/ML VIAL IVP STA (10:20)
[2018-05-27 10:32] LABS: BILIRUBIN,URINE NEGATIVE (NEGATIVE); GLUCOSE, URINE (UA) NEGATIVE (NEGATIVE); KETONES,URINE (UA) NEGATIVE (NEGATIVE); LEUKOCYTE ESTERASE, URINE NEGATIVE (NEGATIVE); NITRITE,URINE NEGATIVE (NEGATIVE); OCCULT BLOOD,URINE NEGATIVE (NEGATIVE); PROTEIN,URINE NEGATIVE (NEGATIVE); UROBILINOGEN,URINE 0.2 (NORMAL) E.U./dL (NORMAL)
[2018-05-27 10:35] LABS: CLARITY,URINE CLEAR (CLEAR)
[2018-05-27 11:13] VITALS: BP 128/84
== END 2018-05-27 11:18 | disposition home or self-care (01) ==
LOC: ED 08:24
DX: M54.5 Low back pain (principal); R10.9 Unspecified abdominal pain; X50.0XXA Overexertion from strenuous movement or load, initial encounter; Y93.89 Activity, other specified; C71.9 Malignant neoplasm of brain, unspecified; R03.0 Elevated blood-pressure reading, without diagnosis of hypertension; N20.0 Calculus of kidney; K76.0 Fatty (change of) liver, not elsewhere classified
CPT/HCPCS: 36415; 71046; 74177; 80053; 81003; 83605; 83690; 85025; 96374; 99283; 99284; Q9967; 81001; 87086

== ENCOUNTER 2018-05-29 09:52 | Outpatient (CLI) | payer MEDICARE, BC | END 2018-05-29 09:53 | disposition critical access hospital (66) | LOC: EMS 09:52 | PROVIDERS: ATTEND Surgery | DX: R53.1 Weakness (principal) | CPT/HCPCS: A0425; A0429 ==

== ENCOUNTER 2018-05-29 10:09 | Emergency (ER) | payer MEDICARE, BC ==
--- NOTE | 2018-05-29 10:44 | ED Physician Documentation ---
PD HPI FOCAL NEURO - Stated complaint Stated Complaint: WEAK - Chief complaint Chief Complaint: General - History obtained from History obtained from: Patient - History of Present Illness Timing - onset: Yesterday Timing - duration: Days ( - 2) Timing - details: Gradual onset, Still present Severity of deficit: Moderate Weakness: Other (generally) Numbness: No: Face, Arm, Leg Associated symptoms: Back pain (had some back pain after some awckward lifting few days ago, seen in ER 2 days ago and Rx Flexeril and Vicodin for the pains. Took just 2 doses yesterday, with last being 8 pm last evening. Having general weakness (not just legs) today, to point of unable to get out of bed. Associated with this is some somnolence. Denies fever nor headache. Had not had much to eat nor drink yesterday, and feels dry mouth.). No: Headache, Nausea / vomiting, Neck pain Contributing factors: negative: Anticoagulated, Atrial fibrillation Baseline status: positive: A&OX3, ambulatory, indep Similar symptoms before: Has not had sx before Recently seen: Clinic (he had been on slow taper of steroids after brain surgery in October and again in February. Had tapered Decadron from 4 mg to3,2,1,1/2 for a week. He had stopped/finished taper the steroids 4 days ago.), Emergency Dept (2 days ago for lower back pain, with eval with CT scan, urine test, blood tests. No acute process found, so Dx with musculoskeletal pain.) Review of Systems Constitutional: denies: Fever, Chills, Myalgias Nose: denies: Rhinorrhea / runny nose, Congestion Throat: denies: Oral lesions / sores, Sore throat Cardiac: denies: Chest pain / pressure, Palpitations Respiratory: denies: Dyspnea Skin: denies: Rash, Lesions Musculoskeletal: reports: Back pain Neurologic: reports: Altered mental status (somnolent this morning/hard to rouse). denies: Headache PD PAST MEDICAL HISTORY - Past Medical History Cardiovascular: Angina, Atrial fibrillation Respiratory: Asthma Endocrine/Autoimmune: HyPOthyroidism GI: GERD : Benign prostate hypertrophy, Other HEENT: Chronic vision loss Psych: Depression Musculoskeletal: Gout Derm: Eczema - Past Surgical History Past Surgical History: Yes General: Cholecystectomy, Appendectomy, Bowel surgery, Colonoscopy, EGD, Other Ortho: Arthroscopic surgery Neuro: Craniotomy HEENT: Tonsil/Adenoidectomy - Present Medications Home Medications: Ambulatory Orders Medication Instructions Recorded Confirmed Levothyroxine Sodium 50 mcg PO QDAC 10/22/16 05/06/18 Tamsulosin [Flomax] 0.4 mg PO DAILY capsule 10/23/16 05/06/18 Clotrimazole Tamia 10 mg PO TID 04/03/18 05/06/18 Levetiracetam [Keppra] 500 mg PO BID 04/03/18 05/06/18 Cyclobenzaprine [Flexeril] 10 mg PO TID PRN #20 tablet 05/27/18 Hydrocodone/Acetaminophen 1 each PO Q4H PRN #15 tablet 05/27/18 [Hydrocodone-Acetamin 5-325 mg] - Allergies Allergies/Adverse Reactions: Allergies Allergy/AdvReac Type Severity Reaction Status Date / Time piroxicam [From Feldene] Allergy Unknown Verified 05/29/18 11:05 - Social History Does the pt smoke?: No Smoking Status: Never smoker Does the pt drink ETOH?: Yes Does the pt have substance abuse?: No - Immunizations Immunizations are current?: Yes - POLST Patient has POLST: Yes PD ED PE NORMAL - Vitals Vital signs reviewed: Yes - General General: Alert and oriented X 3, No acute distress, Well developed/nourished - HEENT HEENT: Pharynx benign - Neck Neck: Supple, no meningeal sign, No adenopathy - Cardiac Cardiac: No: RRR (tachycardic but regular. Monitor showing sinus tach. ) - Respiratory Respiratory: Clear bilaterally - Abdomen Abdomen: Normal bowel sounds, Soft, Non tender, Non distended - Back Back: No CVA TTP - Derm Derm: Normal color, Warm and dry, No rash - Extremities Extremities: No deformity, No tenderness to palpate - Neuro Neuro: Alert and oriented X 3, No motor deficit, Normal speech Eye Opening: Spontaneous Motor: Obeys Commands Verbal: Oriented GCS Score: 15 - Psych Psych: Normal mood, Normal affect NIHSS - Level of Consciousness Level of consciousness: (0) Alert, Keenly responsive LOC Questions: (0) Answers both Q's correct LOC Commands: (0) Performs both correctly - Gaze Best Gaze: (0) Normal - Visual Visual: (0) No loss - Facial Palsy Facial Palsy: (0) Normal, symmetrical movement - Motor Arms (both separate) Motor Arm (right): (0) No drift Motor Arm (left): (0) No drift - Motor Legs (both separate) Motor Leg (right): (0) No drift Motor Leg (left): (0) No drift - Limb Ataxia Limb Ataxia: (0) Absent - Sensory Sensory: (0) Normal - Best Language Best Language: (0) No aphasia - Dysarthria Dysarthria: (0) Normal - Extinction and Inattention (formally neg Extinction and inattention: (0) No abnormality - Total Score/Results Total Score/Result: 0 Results - Vitals Vitals: Vital Signs - 24 hr 05/29/18 05/29/18 05/29/18 10:14 11:09 14:05 Temperature 38.0 C H 37.6 C H Heart Rate 124 H 126 H Respiratory 20 18 Rate Blood Pressure 123/82 H 119/77 O2 Saturation 94 90 L 05/29/18 14:07 Temperature Heart Rate Respiratory Rate Blood Pressure O2 Saturation 88 L Oxygen O2 Source Room air - Labs Labs: Laboratory Tests 05/29/18 05/29/18 05/29/18 11:00 11:00 11:00 WBC 5.2 RBC 4.34 L Hgb 13.6 L Hct 38.6 L MCV 89.1 MCH 31.4 H MCHC 35.2 RDW 15.4 H Plt Count 184 MPV 7.6 Neut # (Auto) 3.8 Lymph # (Auto) 0.7 L Frontier # (Auto) 0.6 Eos # (Auto) 0.1 Baso # (Auto) 0.0 Absolute Nucleated RBC 0.01 Nucleated RBC % 0.2 ESR Sodium 134 L Potassium 3.4 L Chloride 97 L Carbon Dioxide 30 Anion Gap 7.0 BUN 25 H Creatinine 0.8 Estimated GFR (MDRD) 95 Glucose 103 H Lactic Acid Calcium 8.7 Phosphorus 2.5 Magnesium 2.1 Total Bilirubin 1.5 H AST 36 ALT 77 H Alkaline Phosphatase 58 Total Creatine Kinase 26 Troponin I < 0.04 B-Natriuretic Peptide Total Protein 6.9 Albumin 4.1 Globulin 2.8 Albumin/Globulin Ratio 1.5 Lipase 34 05/29/18 05/29/18 05/29/18 11:00 11:00 12:00 WBC RBC Hgb Hct MCV MCH MCHC RDW Plt Count MPV Neut # (Auto) Lymph # (Auto) Frontier # (Auto) Eos # (Auto) Baso # (Auto) Absolute Nucleated RBC Nucleated RBC % ESR 45 H Sodium Potassium Chloride Carbon Dioxide Anion Gap BUN Creatinine Estimated GFR (MDRD) Glucose Lactic Acid 1.3 Calcium Phosphorus Magnesium Total Bilirubin AST ALT Alkaline Phosphatase Total Creatine Kinase Troponin I B-Natriuretic Peptide 12 Total Protein Albumin Globulin Albumin/Globulin Ratio Lipase PD MEDICAL DECISION MAKING - ED course Complexity details: re-evaluated patient (Feeling better with IV fluids and a dose of steroids and also time potential medications to wear off. Not sure the exact cause. He does not look ill here. Initial triage had a temperature of 38.0 but a recheck shortly after he was afebrile. He has not had fevers at home. I do not think that was a true reading. He is somewhat tachycardic and this improved with IV fluids though still mild tachycardia just above 100.), considered differential (labs and tests, exam and tests from today. I think it could be side effect from FLexeril/Vicodin though last dose was last evening. Consider Addisonian weakness with steroid taper finished 4 days ago. Also consider just some dehydration effect. ), d/w patient Departure - Departure Disposition: 01 Home, Self Care Clinical Impression: Generalized weakness, Dehydration Condition: Stable Record reviewed to determine appropriate education?: Yes Instructions: ED Dehydration, ED Weakness [facility] Follow-Up: Saul Patino DO [Primary Care Provider] - Summer Bernard MD [Provider Admit Priv/Credential] - Comments: Your weakness seems a bit improved now. There could be several factors going on. It could be an effect from the medications from the other day. If he did need pain medicine I would suggest half of the hydrocodone tablet and see how you feel. Hold off on the Flexeril as this may have caused some altered mentation. He also sounded dehydrated and we gave his some fluid here. I would encourage you to drink lots of fluids at home. He may also have had some weakness feeling because of being off the steroid. I would resume the Decadron at 1 mg a day for the next several days to week and contact your neurosurgeon who would prescribe it to see if they want to extend out the taper a bit longer or how they want to treat it. See Dr. Bernard tomorrow as planned. Discharge Date/Time: 05/29/18 14:32
[2018-05-29 11:47] LABS: BASOPHILS % (AUTO) 0.4 %; EOSINOPHILS # (AUTO) 0.1 10^3/uL (0.0-0.7); HGB - HEMOGLOBIN 13.6 g/dL (14.0-18.0); LYMPHOCYTES # (AUTO) 0.7 10^3/uL (1.5-3.5); LYMPHOCYTES % (AUTO) 13.6 %; MEAN CORPUSCULAR HEMOGLOBIN 31.4 pg (27.0-31.0); MEAN CORPUSCULAR HGB CONC 35.2 g/dL (32.0-36.0); MEAN CORPUSCULAR VOLUME 89.1 fL (80.0-94.0); MEAN PLATELET VOLUME 7.6 fL (7.4-11.4); MONOCYTES # (AUTO) 0.6 10^3/uL (0.0-1.0); MONOCYTES % (AUTO) 11.9 %; NEUTROPHILS # (AUTO) 3.8 10^3/uL (1.5-6.6); NEUTROPHILS % (AUTO) 73.1 %; PLT - PLATELET COUNT 184 10^3/uL (130-450); RED BLOOD COUNT 4.34 10^6/uL (4.70-6.10); RED CELL DISTRIBUTION WIDTH 15.4 % (12.0-15.0); WHITE BLOOD COUNT 5.2 x10^3/uL (4.8-10.8)
[2018-05-29] MEDS: SODIUM CHLORIDE 0.9% 1,000 ML IV ONE ×2 (12:02)
[2018-05-29 12:04] LABS: ALBUMIN 4.1 g/dL (3.2-5.5); ALBUMIN/GLOBULIN RATIO 1.5 (1.0-2.2); BILIRUBIN,TOTAL 1.5 mg/dL (0.2-1.0); CALCIUM 8.7 mg/dL (8.5-10.3); CREATININE 0.8 mg/dL (0.6-1.2); MAGNESIUM 2.1 mg/dL (1.7-2.8); PHOSPHORUS 2.5 mg/dL (2.5-4.6); TOTAL PROTEIN 6.9 g/dL (6.7-8.2)
[2018-05-29] MEDS: DEXAMETHASONE 10 MG/ML VIAL IVP STA (12:15)
--- NOTE | 2018-05-29 13:54 | XRAY Report ---
Reason: chest pain Procedure Date: 05/29/2018 Accession Number: [id number] / [id number] Procedure: XR - Chest 1 View X-Ray CPT Code: 14781 FULL RESULT: EXAM: CHEST RADIOGRAPHY EXAM DATE: 05/29/2018 01:44 PM. CLINICAL HISTORY: Chest pain. COMPARISON: Chest 2 view 05/27/2018 9:26 AM. TECHNIQUE: 1 view. FINDINGS: Lungs/Pleura: No definite new focal opacities evident. Questionable linear opacity at the right lung base appears similar to the previous radiograph. No pleural effusion. No pneumothorax. Lung volumes are decreased compared to the previous radiograph. Mediastinum: Within exam limitations, the cardiomediastinal contour is normal. Other: None. IMPRESSION: Interval decrease in lung volumes with questionable linear opacities at the right lung base, similar to prior. RADIA
[2018-05-29 14:05] VITALS: BP 119/77
== END 2018-05-29 14:32 | disposition home or self-care (01) ==
LOC: EDUNIT# → ED 10:09
DX: E86.0 Dehydration (principal); R53.1 Weakness; I48.91 Unspecified atrial fibrillation; R00.0 Tachycardia, unspecified
CPT/HCPCS: 36415; 71045; 80053; 82550; 83605; 83690; 83735; 83880; 84100; 84484; 85025; 85651; 93005; 96361; 96374; 99283; 99284

== ENCOUNTER 2018-06-05 11:00 | Outpatient (CLI) | payer MEDICARE, BC ==
--- NOTE | 2018-06-05 16:01 | CONSULTATION NOTE ---
Palliative Care Follow Up - Referral Referring Provider: Dr. Marcie iVllalobos Time of Visit: 05-21 Referral setting: Home (It is a taxing considerable effort for the patient leave the home, he has lower extremity weakness also to facilitate treatment plan and family counseling) Referral Reason: Glioblastoma/f/up ED visit - Information Sources Records reviewed: Previous records reviewed History/Review of Systems obtained from: Patient, Family (SO Alice at visit) Exam limitations: Clinical condition (patient with minimal recall of ED events; presents with increased word finding today) - History of Present Illness Update Brief HPI Update: This is a katie 73-year-old gentleman with a diagnosis of left frontal gliob lastoma, diagnosed in October 2017, status post resection and craniotomy with completed chemoradiation with concurrent Temodar. He had a recent cyst resection, with a repeat craniotomy with improvement in memory, language skills, endurance, and sequencing of tasks. He continues on regular Temodar on a monthly basis, has just recently established with Dr. Bernard, and will be alternating visits with neuro oncology at [facility]. Patient has just completed today his last dose of Temodar. Patient had an acute visit on 05/27 at the ED for right flank pain, was diagnosed with musculoskeletal pain, but did present with significant dehydration and tachycardia. He was seen again on 05/29 related to increased confusion. This was thought to be attributed to his taper of steroids, though he has been on it long-term. He was given a dose of steroids as well as restarted on Decadron 1 mg, when he is seen Dr. Bernard she had recommended 4 mg, but patient has been looking forward to being off the steroids. This has more to do with his concern regarding [place] night appearance as well as his abdominal girth. Patient presents today with no further residual back pain, patient was able to demonstrate good range of motion and no signs or symptoms of pain or discomfort. I do find him compared to last visit, with more word finding, more difficulty with his memory, and not as articulate are able to follow directions and conversation. His care is overseen by his significant other Alice, we are meeting today to address concerns and follow-up after ED. Social History - Living Situation Living arrangement: At home Living Situation: Alone Support System: Patient significant other Alice whom he has been with for 8 years, oversees his care, provides frequent reminders and telephone follow-up. She does not live with patient but does stay if patient doing poorly, she does see him every evening for dinner and medication reminders Medications/Allergies - Medications Home Medications: Ambulatory Orders Medication Instructions Recorded Confirmed Levothyroxine Sodium 50 mcg PO QDAC 10/22/16 06/05/18 Tamsulosin [Flomax] 0.4 mg PO DAILY capsule 10/23/16 06/05/18 Clotrimazole [place] 10 mg PO TID 04/03/18 06/05/18 Levetiracetam [Keppra] 500 mg PO BID 04/03/18 06/05/18 Hydrocodone/Acetaminophen 1 each PO Q4H PRN #15 tablet 05/27/18 06/05/18 [Hydrocodone-Acetamin 5-325 mg] Dexamethasone 2 mg PO DAILY 05/30/18 06/05/18 Ondansetron HCl [Zofran] 4 - 8 mg PO Q8H PRN 05/30/18 06/05/18 Polyethylene Glycol 3350 [Miralax] 17 gm PO DAILY 05/30/18 06/05/18 Sulfamethox/Trimeth 800/160 160 - 800 mg PO DAILY MDD 3 X WEEK 05/30/18 06/05/18 [Bactrim Ds] M-W-F Temozolomide [Temodar] 300 mg PO DAILY MDD finish last 05/30/18 06/05/18 dose today - Allergies Allergies/Adverse Reactions: Allergies Allergy/AdvReac Type Severity Reaction Status Date / Time piroxicam [From Feldene] Allergy Unknown Verified 05/29/18 11:05 Review of Systems - Constitutional Constitutional: reports: Fatigue, Weakness, Weight loss. denies: Fever, Chills - Eyes Eyes: reports: Vision loss, Corrective lenses - Ears, Nose & Throat Ears, Nose & Throat: reports: Other (hx of candidiasis on [place]mond for prevention) - Cardiovascular Cardiovascular: reports: Decr. exercise tolerance. denies: Palpitations - Respiratory Respiratory: reports: SOB with exertion. denies: Cough, Orthopnea, SOB at rest - Gastrointestinal Gastrointestinal: reports: Early satiety (finishing temodur). denies: Abdominal pain, Nausea - Genitourinary Genitourinary: denies: Incontinence, Flank pain - Musculoskeletal Musculoskeletal: reports: Muscle weakness - Integumentary Integumentary: reports: Dryness, Hair changes (alopecia) - Neurological Neurological: reports: General weakness, Memory problems (Alice has observed patient from baseline improvement noted on my last visit 05/04 as increase in word finding from about 95% at best; now down to 80%; concur patient worse from last visit) - Psychiatric Psychiatric: denies: Depression, Anxiety - All Other Systems All Other Systems: reports: Reviewed and negative Physical Exam - Vital Signs Temperature: 97.2 C Pulse Rate: 107 Respiratory Rate: 18 O2 Saturation: 90 (ra @ rest; ambulation 40 feet 92%) Blood Pressure: 112/72 (sitting; 102/54 standing) - Physical Exam General Appearance: positive: No acute distress. negative: Anxious Eyes Bilateral: positive: Normal inspection, Other (periorbital swelling) ENT: positive: Other (tongue improved; light white coating) Neck: positive: Other (patient with cushings appearance from steriod use; full neck) Cardiovascular: positive: Tachycardia (denies symptoms with this) Respiratory: positive: Diminished in bases, Other (decreased RLL;). negative: Wheezes, Rales, Rhonchi Abdomen: positive: Soft, Nml bowel sounds, Obese (rounded steroid), Other (firm) Skin: positive: Dryness, Bruising, Other (craniotomy incision well healed) Extremities: positive: Non-tender (patient able to twist; bend forward/side bend; lift legs; sit to stand without any discomfort), No pedal edema, Other (upper and lower extremity muscle wasting) Neurologic/Psychiatric: positive: Oriented x3, Weakness, Other (word finding) Palliative Care - POLST Patient has POLST: Yes POLST Status: DNR, Selective Treatment Pain: No pain Tiredness/Fatigue: Moderate (4-6) (not back to baseline) Drowsiness/Sedation: Mild (1-3) (sleeping better) Nausea: Mild (1-3) (just finishing oral chemo) Depression: None Anxiety: None Dyspnea: None Anorexia: Mild (1-3) Sleep: Sleep improved (with decrease in decadron; improved) Feelings of wellbeing/Perceived Quality of Life: Good, Acceptable Performance Status: Patient prior to acute ED visit 1118, had been progressing with physical therapy program. Able to better tolerate activity, is able to attend to her own ADLs and showering. Patient is still not allowed to drive which is difficult for him to be dependent. Patient does admit to being somewhat of a "couch potato" as far as activity, looking forward to returning to physical therapy. - Palliative Care Discussion: Both patient and his significant other present as fairly pragmatic. They are hoping for the best, for prolonged quantity and quality of life. They have done some preparatory work, we do have a HEBER ST and D POA completed. At this point in time patient can still stay by himself independently, given the acute changes over the weekend, they do perceive his vulnerability regarding how quickly things can change. Patient continues to hope for the best, but feels vulnerable given his underlying diagnosis. Results - Lab Results Lab results reviewed: Yes Impression and Recommendations - Palliative Care Impression: This is a katie 73-year-old gentleman with a glioblastoma status post craniotomy, chemoradiation, and recent resection of a cyst. Patient continues on oral chemotherapy, did have a setback last weekend with an acute episode of flank pain, and dehydration. Palliative care to continue to provide support and coordination of care with focus on quality of life issues. Recommendations/Counseling Done: 1. Dehydration. Patient in review of fluid status, continues to do very poorly with this. Counseling provided regarding strategies to improve fluid intake, importance with new medications particularly Bactrim, and high risk for ongoing complications if not addressed. Patient drank 8 ounces of fluid while I was there, and will continue to work with Alice to incorporate more fluids. Counseling provided regarding nutrition needs as well with muscle wasting, encouraged to trial different nutritional supplements and instructed to incorporate two into schedule daily. 2. Back pain. Patient presents with residual weakness, more likely attributed to his muscle wasting, dehydration, and steroid taper. Back pain is currently resolved, patient does not present with any signs or symptoms of pain or discomfort on examination. Update sent to physical therapy to resume, patient was finding this quite helpful and also motivating for patient to stay active. 3. Glioblastoma. Counseling provided in weighing benefits and burdens regarding patient's neurologic decline from several weeks ago. May or may not be attributed to Decadron taper, had been recommended to go up to 4 mg, but negotiated to stay at 1 mg. We did discuss in the context of side effects, he is sleeping better, but eating less. Agreed to trial increase to 2 mg daily, will be able to reinitiate taper, but will evaluate after MRI completed. Significant other Alice, will check in next week to update progress, can reevaluate if to continue at same dose if has had improvement, if no improvement I would do slower taper at 1-1/2 tabs for 1 week then down to 1 mg. 4. Hypoxia. Patient is sitting about 90%, does not decrease with ambulation. Does have right lower lobe small pleural effusion on chest x-ray 05/27. Patient denies shortness of breath, cough, or signs of pneumonia. Patient has been started on prophylactic Bactrim DS three times a week for side effects of Temodar and concern for PCP. Patient instructed and counseled on use of incentive spirometer, proper positioning, and encourage deep breathing. 5. Advanced care planning. Patient does have a HEBER ST in place as a do not attempt resuscitation, selected treatment, determine the use of antibiotics with comfort as the goal and no medically assisted nutrition. He has designated Alice Duque ROSI NEUMANN GALINA, his significant other for 8 years as his D POA, her phone number is [phone]. Given their most recent interaction with the healthcare system, with a ED visit, do recognize the vulnerability given his underlying serious illness. They did have a nice connection with Dr. Bernard and are looking forward to working with her as well. Discussed the role of palliative care ongoing, will continue to check in every few weeks, and assist with anticipatory guidance as indicated. Time Spent: 60 minutes with greater than 50% of this done in counseling and coordination of care, follow-up with physical therapy, review of hydration, nutrition, and anticipatory guidance
== END 2018-06-05 11:01 | disposition home or self-care (01) ==
LOC: PC 11:00
PROVIDERS: ATTEND Nurse Practitioner Adult Health
DX: Z51.5 Encounter for palliative care (principal); E86.0 Dehydration; C71.9 Malignant neoplasm of brain, unspecified; R09.02 Hypoxemia; Z98.890 Other specified postprocedural states; Z79.899 Other long term (current) drug therapy; R53.1 Weakness; Z66 Do not resuscitate
CPT/HCPCS: 99350

== ENCOUNTER 2018-06-19 10:35 | Outpatient (CLI) | payer MEDICARE, BC ==
--- NOTE | 2018-06-19 21:26 | CONSULTATION NOTE ---
Palliative Care Follow Up - Referral Referring Provider: Dr. Marcie Patino Time of Visit: 10:40-11:10 Referral setting: [facility] [place] Reason: Glioblastoma/Pal Care - Information Sources Records reviewed: Previous records reviewed History/Review of Systems obtained from: Patient, Family (S/O Alice at visit) Exam limitations: Clinical condition (patient with some STM issues; Alice assisting with ROS) - History of Present Illness Update Brief HPI Update: This is a katie 73-year-old gentleman with a diagnosis of left frontal glioblastoma, diagnosed in October 2017, status post resection and craniotomy. This is followed by chemoradiation with concurrent oral Temodar. He has had a recent cyst resection, with repeat craniotomy with some improvement in memory, language skills, endurance and sequencing of tasks. He unfortunately had exacerbation on 05/29 with an ED visit related to increased confusion. He had been on a Decadron taper, has been titrated back up to 2 mg. He continues to sustain improvement with only mild word finding, conversation more fluent, able to independently answer more questions with recall accurately, but significant other does report at the end of the day some of these symptoms do exacerbate with increased fatigue. He has had no further acute back pain, and is scheduled for all oral surgery tomorrow secondary to a broken tooth. He had to wait 6-8 weeks after his last surgery. He does have persistent and fluctuating pain related to this. Current plan is to have follow-up MRI, and appointment with neuro oncologist 06/28. Depending on findings but most likely will then resume Temodar 06/29. He has been tolerating this fairly well. In discussion where he is at with his current Decadron dosing, will await outcome of this appointment and continue at 2 mg. His most significant side effect at this point in time is insomnia with this. Social History - Living Situation Living arrangement: At home Living Situation: Alone Support System: His significant other Alice is his main support, up to see him daily, with frequent phone check-in's. Currently has been able to manage to live independently with this support. Medications/Allergies - Medications Home Medications: Ambulatory Orders Medication Instructions Recorded Confirmed Levothyroxine Sodium 50 mcg PO QDAC 10/22/16 06/20/18 Tamsulosin [Flomax] 0.4 mg PO DAILY capsule 10/23/16 06/20/18 Clotrimazole [place] 10 mg PO TID 04/03/18 06/20/18 Levetiracetam [Keppra] 500 mg PO BID 04/03/18 06/20/18 Dexamethasone 2 mg PO DAILY 05/30/18 06/20/18 Ondansetron HCl [Zofran] 4 - 8 mg PO Q8H PRN 05/30/18 06/20/18 Polyethylene Glycol 3350 [Miralax] 17 gm PO DAILY 05/30/18 06/20/18 Sulfamethox/Trimeth 800/160 160 - 800 mg PO DAILY MDD 3 X WEEK 05/30/18 06/20/18 [Bactrim Ds] M-W-F - Allergies Allergies/Adverse Reactions: Allergies Allergy/AdvReac Type Severity Reaction Status Date / Time piroxicam [From Feldene] Allergy Unknown Verified 05/29/18 11:05 Review of Systems - Constitutional Constitutional: reports: Weight stable - Eyes Eyes: reports: Vision loss, Corrective lenses - Ears, Nose & Throat Ears, Nose & Throat: reports: Dental pain (surgery scheduled tomorrow for broken tooth) - Cardiovascular Cardiovascular: reports: Exertional dyspnea - Respiratory Respiratory: denies: SOB at rest - Gastrointestinal Gastrointestinal: reports: Reflux/heartburn (occasional), Good appetite - Genitourinary Genitourinary: reports: Frequency - Musculoskeletal Musculoskeletal: reports: Muscle weakness (currently resumed PT; feels it is helping). denies: Back pain - Integumentary Integumentary: reports: Dryness - Neurological Neurological: reports: Memory problems. denies: Headache, Dizziness, Seizures - Psychiatric Psychiatric: denies: Depression, Anxiety - All Other Systems All Other Systems: reports: Reviewed and negative Physical Exam - Vital Signs Pulse Rate: 81 Respiratory Rate: 16 O2 Saturation: 93 (ra @ rest) Blood Pressure: 134/86 - Physical Exam General Appearance: positive: No acute distress Eyes Bilateral: positive: Normal inspection ENT: positive: Other (tongue with increased white coating/not painful; resuming TID richmond) Neck: positive: Other (full cushingnoid appearance) Cardiovascular: positive: Regular rate & rhythm Respiratory: positive: Breath sounds nml, Diminished in bases Abdomen: positive: Non-tender, Nml bowel sounds, Other (rounded related to steroids) Skin: positive: Dryness, Wound (craniotomy incision well healed) Extremities: positive: No pedal edema Neurologic/Psychiatric: positive: Oriented x3, Mood/affect nml Palliative Care - POLST Patient has POLST: Yes POLST Status: DNR, Selective Treatment Pain: Pain unchanged Tiredness/Fatigue: Mild (1-3) Drowsiness/Sedation: Mild (1-3) Nausea: Mild (1-3) Depression: Mild (1-3) Anxiety: Mild (1-3) Dyspnea: Mild (1-3) Anorexia: Mild (1-3) Sleep: Sleeps poorly (Sleeps 10-230 up for a couple hours; and sleeps few more; would like sleep aid) Constipation: No Feelings of wellbeing/Perceived Quality of Life: Good, Acceptable, No change Performance Status: Patient is independent in his ADLs, does have poor activity tolerance and fatigues easily. Has been participating in physical therapy, lives in a small apartment this is been helpful to maintain his endurance and muscle strength. He does have muscle wasting secondary to steroid use. He has had no falls. - Palliative Care Discussion: Alice Haley [phone] is DPOA, and patient has POLST DNAR/Selected Treatments/Determine the use of antibiotics with comfort as the goal/No medically assisted Nutrition Patient doing fairly well, is somewhat anxious with pending scan. Remains independent, symptoms currently controlled, is fairly pragmatic and not feeling overwhelmed currently. Patient continues to be positive and hope for the best. Impression and Recommendations - Palliative Care Impression: This is a katie 73-year-old gentleman with a glioblastoma status post craniotomy, chemoradiation, and recent resection of a cyst. Patient continues on oral chemotherapy monthly, presents with moderate symptom burden. Palliative care to continue to provide support both for in and symptom management and counseling for adjustment to illness. Recommendations/Counseling Done: 1. 1. Dehydration. Patient is doing better with fluid status, does have fluctuating fatigue, most likely attributed to fluctuating intake. He is doing better with adding 1-2 protein drinks daily as instructed, and presents with improved symptoms today. 2. Glioblastoma. Patient doing better on 2 mg of Decadron daily, does experience increased insomnia on this dose. But reports it is tolerable. Patient due for MRI and follow-up with neuro-oncology, counseling provided regarding most likely on long-term Decadron, can start taper if indicated with neuro oncologist was agreement after much discussion. Patient's symptoms are improved on the higher dose. 3. Hypoxia. Patient presents today at 93%, improved breath sounds, does get breathless at times and bending over and with exertion. Patient without signs or symptoms of pneumonia. 4. Insomnia. Patient does live by himself, hesitant to add anything to increase fall risk, discussed low-dose trazodone and tapering up. Will reach out to Dr. tai, do not see any contraindications but will confirm. 5. Advanced care planning. Patient does have a HEBER ST in place. Has established care with Dr. Bernard to decreased urgent care physician burden with traveling down to [place]. Palliative care to continue to be available to provide ongoing support and coordination of care. Will await outcome of next scan, to further set future appointments. Time Spent: 30 minutes with getting 50% of this done in counseling and coordination of care and anticipatory guidance
== END 2018-06-19 10:36 | disposition home or self-care (01) ==
LOC: PC 10:35
PROVIDERS: ATTEND Nurse Practitioner Adult Health
DX: Z51.5 Encounter for palliative care (principal); E86.0 Dehydration; C71.9 Malignant neoplasm of brain, unspecified; R09.02 Hypoxemia; G47.00 Insomnia, unspecified; Z66 Do not resuscitate; Z79.899 Other long term (current) drug therapy
CPT/HCPCS: 99214

== ENCOUNTER 2018-06-25 11:34 | Outpatient (CLI) | payer MEDICARE, BC ==
[2018-06-25 11:50] LABS: BASOPHILS # (AUTO) 0.1 10^3/uL (0.0-0.1); BASOPHILS % (AUTO) 0.8 %; EOSINOPHILS % (AUTO) 0.5 %; HGB - HEMOGLOBIN 14.3 g/dL (14.0-18.0); LYMPHOCYTES # (AUTO) 0.7 10^3/uL (1.5-3.5); LYMPHOCYTES % (AUTO) 8.6 %; MEAN CORPUSCULAR HEMOGLOBIN 30.9 pg (27.0-31.0); MEAN CORPUSCULAR HGB CONC 34.4 g/dL (32.0-36.0); MEAN PLATELET VOLUME 7.7 fL (7.4-11.4); MONOCYTES # (AUTO) 0.3 10^3/uL (0.0-1.0); MONOCYTES % (AUTO) 4.2 %; NEUTROPHILS # (AUTO) 6.8 10^3/uL (1.5-6.6); NEUTROPHILS % (AUTO) 85.9 %; PLT - PLATELET COUNT 93 10^3/uL (130-450); RED BLOOD COUNT 4.62 10^6/uL (4.70-6.10); RED CELL DISTRIBUTION WIDTH 15.6 % (12.0-15.0); WHITE BLOOD COUNT 7.9 x10^3/uL (4.8-10.8)
[2018-06-25 12:13] LABS: ALBUMIN 4.1 g/dL (3.2-5.5); ALBUMIN/GLOBULIN RATIO 1.5 (1.0-2.2); BILIRUBIN,DIRECT 0.1 mg/dL (0.1-0.5); BILIRUBIN,TOTAL 0.9 mg/dL (0.2-1.0); CALCIUM 9.3 mg/dL (8.5-10.3); CREATININE 0.8 mg/dL (0.6-1.2); TOTAL PROTEIN 6.9 g/dL (6.7-8.2)
== END 2018-06-25 11:35 | disposition home or self-care (01) ==
LOC: LAB 11:34
PROVIDERS: ATTEND Physician Assistant
DX: D43.0 Neoplasm of uncertain behavior of brain, supratentorial (principal)
CPT/HCPCS: 36415; 80053; 80076; 85025

== ENCOUNTER 2018-07-06 13:27 | Outpatient (CLI) | payer MEDICARE, BC ==
--- NOTE | 2018-07-06 16:15 | CONSULTATION NOTE ---
Palliative Care Follow Up - Referral Referring Provider: Dr. Saul Patino Time of Visit: 4150-1156 Referral setting: [facility] [place] Referral Reason: Glioblastoma - Information Sources Records reviewed: Previous records reviewed History/Review of Systems obtained from: Patient, Family (S.O. Alice present for visit) Exam limitations: No limitations - History of Present Illness Update Brief HPI Update: This is a katie 73-year-old gentleman with a diagnosis of left frontal glioblastoma, originally diagnosed in October 2017, status post resection and craniotomy. This is followed by chemoradiation with concurrent oral Temodar. He had a cyst resection in April, with a repeat craniotomy, with some improvement in memory, language skills, and sequencing tasks. He continues to sustain improvement, with only mild word finding, his conversation is quite fluent, and is doing better with recall accurately though does have some end of day fatigue. He was seen at the [facility] [place] on 06/29 for follow-up MRI, unfortunately it showed marked increased in enhancement around the cyst cavity. This was a significant Below, emotionally as patient had been doing better both functionally and cognitively. Dr. Oropeza the neuro oncologist, was surprised given he had had a biopsy on 04 09 with a sampling of 6 sites and all were negative for tumor. He was rescheduled for a PET brain 07/05, and though it was read as FDG uptake circumferentially surrounding the cavity consistent with recurrent brain neoplasm, then neuro oncologist "was underwhelmed". They are going to continue and hold the Temodar, and re-image in 1 month. Patient remains on Decadron 2 mg, this does seem to be a good dose for him, he does have some insomnia, but this is improved on the trazodone. Conversation focused on setting goals, he does have a month off, recommended this is a good time to travel as he does have a break. He is to see Dr. Bernard on 07/18. Remains a question whether patient needs to remain on the Bactrim since he is off the Temodar. We also discussed depression, physical therapy, as well as coping and adjustment illness. Social History - Living Situation Living arrangement: At home Living Situation: Alone Support System: Patient does live independently in an apartment, he is overseen with frequent cueing and reminders from his partner Alice. 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 Medications/Allergies - Medications Home Medications: Ambulatory Orders Medication Instructions Recorded Confirmed Levothyroxine Sodium 50 mcg PO QDAC 10/22/16 07/06/18 Tamsulosin [Flomax] 0.4 mg PO DAILY capsule 10/23/16 07/06/18 Clotrimazole Tamia 10 mg PO TID 04/03/18 07/06/18 Levetiracetam [Keppra] 500 mg PO BID 04/03/18 07/06/18 Dexamethasone 2 mg PO DAILY 05/30/18 07/06/18 Ondansetron HCl [Zofran] 4 - 8 mg PO Q8H PRN 05/30/18 07/06/18 Polyethylene Glycol 3350 [Miralax] 17 gm PO DAILY 05/30/18 07/06/18 Sulfamethox/Trimeth 800/160 160 - 800 mg PO DAILY MDD 3 X WEEK 05/30/18 07/06/18 [Bactrim Ds] M-W- traZODone [Desyrel] 50 - 100 mg PO ACHS PRN 07/06/18 07/06/18 - Allergies Allergies/Adverse Reactions: Allergies Allergy/AdvReac Type Severity Reaction Status Date / Time piroxicam [From Feldene] Allergy Unknown Verified 05/29/18 11:05 Review of Systems - Constitutional Constitutional: reports: Fatigue, Weight gain (194.2) - Eyes Eyes: reports: Vision loss, Corrective lenses - Ears, Nose & Throat Ears, Nose & Throat: reports: Dental decay (recent tooth out;), Other (coating white tongue/ no symptoms) - Cardiovascular Cardiovascular: reports: Exertional dyspnea, Decr. exercise tolerance. denies: Chest pain - Respiratory Respiratory: reports: SOB with exertion. denies: SOB at rest - Gastrointestinal Gastrointestinal: reports: Good appetite, Other (difficulty staying hydrated). denies: Constipation, Nausea, Reflux/heartburn - Genitourinary Genitourinary: reports: Other (to see urologist in follow up re/prostate ca) - Musculoskeletal Musculoskeletal: reports: Stiffness, Muscle weakness (some muscle wasting attributed to steroid use). denies: Back pain - Integumentary Integumentary: reports: Dryness - Neurological Neurological: reports: General weakness, Memory problems (mild). denies: Headache, Dizziness - Psychiatric Psychiatric: denies: Depression, Anxiety - Endocrine Endocrine: reports: Hypothyroidism - Hematologic/Lymphatic Hematologic/Lymphatic: denies: Recurrent infections - All Other Systems All Other Systems: reports: Reviewed and negative Physical Exam - Vital Signs Temperature: 37.0 C Pulse Rate: 84 Respiratory Rate: 18 Blood Pressure: 142/87 - Physical Exam General Appearance: positive: No acute distress, Alert Eyes Bilateral: positive: Normal inspection ENT: positive: Other (coated white tongue; no buccal lesions; denies discomfort) Neck: positive: Trachea midline, Other (full neck related to cushings appearance) Cardiovascular: positive: Regular rate & rhythm Respiratory: positive: Breath sounds nml. negative: Wheezes, Rales, Rhonchi Abdomen: positive: Non-tender, Soft, Nml bowel sounds, Obese Skin: positive: Dryness Extremities: positive: Full ROM, No pedal edema Neurologic/Psychiatric: positive: Oriented x3, Mood/affect nml Palliative Care - POLST Patient has POLST: Yes POLST Status: DNR, Selective Treatment Pain: No pain Tiredness/Fatigue: None Drowsiness/Sedation: None, Comment (does admit to short naps during day) Nausea: None Depression: None Anxiety: None Dyspnea: None Anorexia: None Sleep: Sleep improved (Patient reports sleep patterns have improved, though still only sleeps 1:50 AM, gets up for about an hour, then sleeps on the couch. Reports that he did try the trazodone at 2 tabs, unable to tell me why did not want to repeat that. Currently taking trazodone 50 mg at bedtime, does feel this has helped.) Constipation: No Feelings of wellbeing/Perceived Quality of Life: Good, Acceptable, Improved Performance Status: Patient is able to ambulate short distances, does have poor activity intolerance. Does fatigue by the end of the day. Patient wondering if needs to continue physical therapy, did discuss in the context of what his expectations were versus the goal. Patient is independent in ADLs, is unable to drive. But does do light housework, would put him at a PPS of 80% - Palliative Care Discussion: Both patient and his as so are feeling very positive after their appointment with the neuro oncologist. Are hopeful that patient does not have recurrent disease, though certainly still a possibility. They do have the months off. We did discuss the context of setting goals, considering traveling during this time as patient is stable. Patient does have a HEBER ST and D POA in place which is Alice Saldivar CK phone number [phone] Results - Lab Results Lab results reviewed: Yes Lab and Imaging Results: patient encouraged to get labs in f/up with Dr. Bernard even if no treatment to get baseline Impression and Recommendations - Palliative Care Impression: This is a katie 73-year-old gentleman with glioblastoma status post craniotomy, chemoradiation, resection of a cyst, currently on hold for his chemotherapy. Palliative care providing support regarding quality of life issues as well as counseling regarding symptoms. Recommendations/Counseling Done: 1. Generalized weakness. This is multifactorial in origin, including muscle wasting from long-term steroid use. Patient somewhat balking about returning to physical therapy, long discussion regarding goals. He was hoping for increased energy, we did discuss in the context of stamina, muscle wasting secondary to steroid use, and the research showing that patients benefit from exercise as far as quality of life and quantity of life. Patient is not motivated to independe ntly exercise, lives in a small apartment, did agree to restart physical therapy with intent of support regarding above. 2. Insomnia. Patient has had some improvement with the trazodone, encouraged could try 2 tabs at night if felt still not acceptable. Unable to recall why trialed one night, instructed often needs to try 2-3 nights before abandoned in the, and less patient experiencing unacceptable side effects. 3. Glioblastoma. Patient currently on hiatus from chemotherapy, encouraged to travel or look at things on his "bucket list some ". Patient is due for repeat MRI in 1 month. Discussed current Decadron dosing at 2 mg, both agreed comfortable with current steroid support. Did provide copy for Dr. Bernard from neuro oncology visits. Pending appointment 07/18. Did encourage him to follow-up regarding if still needs prophylactic Bactrim. 4. Depression. Dr. Oropeza had talked to them about Celexa, did discuss in the context of patient's current symptoms, patient does not have persistent sadness, feelings of depression, does have intermittent feelings of grief and loss. Patient does have a flat affect, though patient perceives this as "his normal". After discussion benefits and burdens, patient already on trazodone, will either push to therapeutic dosing if desired, otherwise continue to monitor. 5. Broken tooth. Patient's tooth socket still not filled in, concern for symptoms of infection, visualized unable to tell if jaw bone or root of tooth. Recommended follow-up with dentist/oral surgeon. Before next appointment and restart of chemotherapy. 6. Advanced care planning. Patient does have a HEBER ST in place and D POA designated. Patient is focusing on quality of life issues, hoping for the best, is getting affairs in order though. Continue with palliative care support as needed. Time Spent: 45 minutes with greater than 50% of this done in counseling regarding physical therapy, fatigue, depression, and anticipatory guidance
== END 2018-07-06 13:28 | disposition home or self-care (01) ==
LOC: PC 13:27
PROVIDERS: ATTEND Nurse Practitioner Adult Health
DX: Z51.5 Encounter for palliative care (principal); M62.81 Muscle weakness (generalized); M62.50 Muscle wasting and atrophy, not elsewhere classified, unspecified site; T38.0X5A Adverse effect of glucocorticoids and synthetic analogues, initial encounter; G47.00 Insomnia, unspecified; C71.9 Malignant neoplasm of brain, unspecified; F32.9 Major depressive disorder, single episode, unspecified; K08.409 Partial loss of teeth, unspecified cause, unspecified class; Z66 Do not resuscitate; Z79.899 Other long term (current) drug therapy
CPT/HCPCS: 99215

== ENCOUNTER 2018-07-18 09:26 | Outpatient (CLI) | payer MEDICARE, BC | END 2018-07-18 09:27 | disposition home or self-care (01) | LOC: LAB 09:26 | PROVIDERS: ATTEND Urology | DX: C61 Malignant neoplasm of prostate (principal) | CPT/HCPCS: 84153 ==

== ENCOUNTER 2018-08-23 10:59 | Outpatient (CLI) | payer MEDICARE, BC ==
--- NOTE | 2018-08-23 19:41 | CONSULTATION NOTE ---
Palliative Care Follow Up - Referral Referring Provider: Dr. Marcie Villalobos Time of Visit: 11 Referral setting: [facility] [place] Referral Reason: Glioblastoma Grade 4/ Goals of Care - Information Sources Records reviewed: Previous records reviewed History/Review of Systems obtained from: Patient, Family (Alice S/O provided most of history) Exam limitations: Clinical condition (patient with increasing STM issues) - History of Present Illness Update Brief HPI Update: This is a katie 73-year-old gentleman with a diagnosis of left frontal glioblastoma, originally diagnosed in October 2017, he is status post resection and craniotomy. This was followed by chemoradiation with concurrent oral Temodar. He did have a cyst resection in April 2018, with repeat craniotomy with some improvement at that time in memory, language skills, and sequencing task. He had continued on the Temodar, unfortunately this was put on hold, after a PET scan 07/05, until reimaging, which did show progressive disease. Given progression of disease, patient is starting on oral etoposide, they have not received this yet with all the inclement weather delays, are hoping to start next week. He has started the bevacizumab yesterday, there was some concern regarding patient had a episode of significant anxiety and emotional outbursts. Alice his s/o was not there, patient does not recall the episode, and does admit to increasing difficulty with memory, and processing of sequencing of tasks, and concern for some neurological decline. Patient presents today is able to engage in the conversation, does present with poor recall of more recent events, patient has been managing independently in his apartment with his support from Alice. She is concerned as he now does not feel able to fix his own breakfast and lunch, needing more guidance and oversight for medication management, and she is getting ready to take a trip next week and and is anxious about arrangements and leaving him. Patient denies depression, tends to be somewhat pragmatic, but does recognize her concerns but does not appear to be able to emotionally engage in the conversation. Given patient's decline, this has brought to the forefront, the need for long-term plan is patient deteriorates in the future. Alice is quite clear that she is not going to be able to be a 24/7 caregiver and concerned about at what point the threshold for treatment should be continued. Patient and caregiver quite committed at this point in time to continue with treatment, they are looking at electronic field therapy, and engaging in new treatment plan but are aware of the palliative nature of his treatment course. Social History - Living Situation Living arrangement: At home Living Situation: Alone Support System: Patient currently lives by himself and Jesus Manuel Lotus, has been managing up to this point with oversight from his significant other Alice. She has been helping him manage his treatment schedule, appointments, but needs frequent cueing and reminders for medications and follow through. Up to this point had been able to make his own breakfast and lunch, concern regarding able to follow through on this. 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 He does not feel his family member brother, would be able to participate in his caregiving team. They do have friends they are enlisting the help of, so Alice can have a respite break to celebrate her father's 88th birthday Medications/Allergies - Medications Home Medications: Ambulatory Orders Medication Instructions Recorded Confirmed Levothyroxine Sodium 50 mcg PO QDAC 10/22/16 08/24/18 Tamsulosin [Flomax] 0.4 mg PO DAILY capsule 10/23/16 08/24/18 Clotrimazole Tamia 10 mg PO TID 04/03/18 08/24/18 Levetiracetam [Keppra] 500 mg PO BID 04/03/18 08/24/18 Dexamethasone 2 mg PO BID 05/30/18 08/24/18 Polyethylene Glycol 3350 [Miralax] 17 gm PO DAILY 05/30/18 08/24/18 traZODone [Desyrel] 50 - 100 mg PO ACHS PRN 07/06/18 08/24/18 Ondansetron HCl [Zofran] 4 mg PO Q4H PRN #30 tablet 08/16/18 08/24/18 Prochlorperazine Maleate 10 mg PO Q6H PRN #30 tablet 08/16/18 08/24/18 - Allergies Allergies/Adverse Reactions: Allergies Allergy/AdvReac Type Severity Reaction Status Date / Time piroxicam [From Feldene] Allergy Unknown Verified 08/15/18 12:41 Review of Systems - Constitutional Constitutional: reports: Fatigue, Weight stable. denies: Fever, Chills - Eyes Eyes: reports: Vision loss, Corrective lenses - Ears, Nose & Throat Ears, Nose & Throat: reports: Dry mouth - Cardiovascular Cardiovascular: reports: Decr. exercise tolerance - Respiratory Respiratory: reports: SOB with exertion. denies: SOB at rest - Gastrointestinal Gastrointestinal: reports: Good appetite. denies: Constipation, Nausea, Reflux/heartburn - Musculoskeletal Musculoskeletal: reports: Stiffness, Muscle weakness, Other (discontinued PT; though admits not following through on activity does not want to resume) - Integumentary Integumentary: reports: Dryness - Neurological Neurological: reports: Memory problems, Other (word finding; sequencing issues) - Psychiatric Psychiatric: reports: Anxiety. denies: Depression - Endocrine Endocrine: reports: Hypothyroidism - Hematologic/Lymphatic Hematologic/Lymphatic: reports: Anemia. denies: Recurrent infections - All Other Systems All Other Systems: reports: Reviewed and negative Physical Exam - Vital Signs Temperature: 36.8 C Pulse Rate: 74 Respiratory Rate: 18 Blood Pressure: 154/93 - Physical Exam General Appearance: positive: No acute distress, Alert Eyes Bilateral: positive: Normal inspection ENT: positive: No signs of dehydration Neck: positive: No JVD, Trachea midline Cardiovascular: positive: Regular rate & rhythm Respiratory: positive: Breath sounds nml Abdomen: positive: Soft Skin: positive: Dryness Extremities: positive: No pedal edema Neurologic/Psychiatric: positive: Oriented x3, Mood/affect nml, Flat affect Palliative Care - POLST Patient has POLST: Yes POLST Status: DNR, Selective Treatment Pain: No pain Tiredness/Fatigue: Moderate (4-6) Drowsiness/Sedation: None Nausea: None Depression: None Anxiety: None Dyspnea: Mild (1-3) Anorexia: None Sleep: Sleep improved Constipation: No Feelings of wellbeing/Perceived Quality of Life: Fair, Acceptable, Worsening Performance Status: Patient ambulatory, he is most comfortable in his apartment. Though this is a small space. He is still able to attend his own ADLs, but having increased trouble with meal prep. Does need cueing for medication, reminders about fluid. Has had no falls. - Palliative Care Discussion: Patient does not express any worry or concern or anxiety regarding his current situation. He presents somewhat as a flat affect, very pragmatic in conversation. Does not recall R understand his episode of confusion yesterday. Unfortunately this was very upsetting to his significant other, does recognize things are changing, he is needing increased support and care needs. She is quite anxious about her pending respite stay, had made arrangements for friends to check on her, and somebody to have dinner with him. We did discuss in the context of may be asking for more support of their friend so that she can feel more comfortable with this. We also made arrangements for a palliative half-way visit on that Monday. She is quite anxious as patient has not started oral chemotherapy, and worried about the side effects and someone monitoring him. This did bring up a bigger concern which is when patient is unable to care for himself, Alice is not capable nor wanting to be 30/01 caregiver. Patient will need plan. We did discuss in the context of treatment, what would still be defi oriana his quality of life, if patient were unable to care for himself, recognize or enjoy his current quality of life, or be dependent on others and had increased confusion, this would be the threshold for stopping treatment. In agreement though hoping for the best, need to start working on plan for when patient needing more assistance and help, will make referral to the medical palliative care social staff worker to assist. Patient does have a HEBER ST which is DNA R and selective treatments, D POA in place which is Alice R OT HBO E CK phone number [phone] Results - Lab Results Lab results reviewed: Yes Impression and Recommendations - Palliative Care Impression: This is a 73-year-old gentleman with glioblastoma Grade 4, left frontal, status post craniotomy, chemoradiation, resection of a cyst, and currently proceeding on bevacizumab every 2 weeks, and to start etoposide as soon as arrives hopefully next week. Patient does have progressive disease, is presenting with increased symptoms and some cognitive decline. Palliative care providing support regarding quality of life issues as well as anticipatory guidance. Recommendations/Counseling Done: 1.Glioblastoma. Patient is started bevacizumab yesterday, to start etoposide next week. Concern regarding side effects and caregiver planned respite. We will go ahead and plan home visit on 09/03 to ease caregiver concerns and follow- up on side effects. Patient does present with increased symptoms of cognitive changes, patient currently at Decadron dosing at 2 mg, both agreed comfortable with current steroid support. 2. Generalized weakness. This is multifactorial in origin, including muscle wasting from long-term steroid use. Patient had return to physical therapy, but is since discontinued. Patient admits to not having the motivation for following through, has been encouraged to increase his activity, currently remains independent in his ADLs. Counseling provided regarding encouragement to at least increase activity in apartment or when go shopping, ways to incorporate vs. make "exercise". Insomnia. Patient continues with sleeping okay, using the trazodone. No further titration needed. 3. Advanced care planning. Caregiver Alice is planning a respite stay, brainstorming and problem solving done around managing this several days she is going to be gone. This though did highlight concern for patient's cognitive decline, concern for caregiving needs in the future. Please see palliative care discussion, did define some thresholds for treatment versus no treatment, as well as agreed to medical office technology instructor for long-term planning and increased caregiving support Time Spent: 60 minutes with greater than 50% of this done in counseling regarding goals of care, symptom management, advance care planning and anticipatory guidance.
== END 2018-08-23 11:00 | disposition home or self-care (01) ==
LOC: PC 10:59
PROVIDERS: ATTEND Nurse Practitioner Adult Health
DX: Z51.5 Encounter for palliative care (principal); C71.9 Malignant neoplasm of brain, unspecified; R53.1 Weakness; Z66 Do not resuscitate; Z92.3 Personal history of irradiation
CPT/HCPCS: 99215

== ENCOUNTER 2018-09-03 20:32 | Outpatient (CLI) | payer MEDICARE, BC ==
--- NOTE | 2018-09-03 20:47 | CONSULTATION NOTE ---
Palliative Care Follow Up - Referral Referring Provider: Dr. Marcie Patino Time of Visit: 6830-2339 Referral setting: Home (Is a taxing considerable effort for the patient leave the home secondary to his cognitive changes, and lower extremity weakness as well as to evaluate his treatment plan and safety in the home setting) Referral Reason: Glioblastoma Grade 4 - Information Sources Records reviewed: Previous records reviewed History/Review of Systems obtained from: Patient Exam limitations: Clinical condition (patient with severe STM deficits) - History of Present Illness Update Brief HPI Update: This is a 73-year-old gentleman with a diagnosis of left frontal glioblastoma, which was originally diagnosed in October 2017, he is status post resection and craniotomy. This is followed by chemoradiation concurrent oral Temodar, he had a cyst resection in April 2018, with some improvement at that point in time in memory, language skills, and sequencing and tasks. He continued on the team adore, unfortunately after a PET scan 07/05/2018 did show progressive disease. Patient has just started oral etoposide last week, and bevacizumab. Alice his SO, is currently out of town. Agreement to have made a home visit to evaluate his current cognitive status which has been declining as well as safety. Patient does report low-grade nausea that is fairly persistent since he started the etoposide. He has not had any vomiting, nor has he had the threshold to take the ondansetron. Patient does tend to get dehydrated, as he forgets to drink. I do find the patient today with significant changes in his short-term memory, poor recall, was unable to tell me what he done this day. His language skills are more impacted, he could answer yes/no, but could not initiate any longer descriptions her questions. He is aware of his frustration around communication, but very little insight into the severity of his deficits. They have had people checking on him as far as helping him remind to take pills, patient is losing ability to make meals or initiate any kind of food prep, but is still able to dress and shower. He has not left the house since Alice is gone, as he does not feel safe. He does report he is sleeping more and eating more frequent rest periods he denies any headache or vision changes, but does seem disoriented as far as date, time, season, as well as ability to recall any details both short-term and long-term. He is not exhibiting any signs of distress, but does have notable decline, he has some balance issues, but otherwise no deficits in fine motor her motor activities at this point Social History - Living Situation Living arrangement: At home Living Situation: Alone Support System: Is asked who has been eating to provide more more assistance. She does provide oversight for pills, meals, and calls frequently with reminders. She has been out of town for 4 days to be with her family. She has left friends and called frequently to provide support for patient in her absence. Medications/Allergies - Medications Home Medications: Ambulatory Orders Medication Instructions Recorded Confirmed Levothyroxine Sodium 50 mcg PO QDAC 10/22/16 09/04/18 Tamsulosin [Flomax] 0.4 mg PO DAILY capsule 10/23/16 09/04/18 Clotrimazole Tamia 10 mg PO TID 04/03/18 09/04/18 Levetiracetam [Keppra] 500 mg PO BID 04/03/18 09/04/18 Dexamethasone 2 mg PO BID 05/30/18 09/04/18 Polyethylene Glycol 3350 [Miralax] 17 gm PO DAILY PRN 05/30/18 09/04/18 traZODone [Desyrel] 50 - 100 mg PO ACHS PRN 07/06/18 09/04/18 Ondansetron HCl [Zofran] 4 mg PO Q4H PRN #30 tablet 08/16/18 09/04/18 Prochlorperazine Maleate 10 mg PO Q6H PRN #30 tablet 08/16/18 09/04/18 Etoposide 100 mg PO DAILY 09/04/18 09/04/18 - Allergies Allergies/Adverse Reactions: Allergies Allergy/AdvReac Type Severity Reaction Status Date / Time piroxicam [From Feldene] Allergy Unknown Verified 08/15/18 12:41 Review of Systems - Constitutional Constitutional: reports: Fatigue - Eyes Eyes: reports: Vision loss, Corrective lenses - Cardiovascular Cardiovascular: reports: Decr. exercise tolerance. denies: Edema - Respiratory Respiratory: reports: SOB with exertion. denies: Cough, Wheezing, SOB at rest - Gastrointestinal Gastrointestinal: reports: Nausea, Early satiety. denies: Constipation - Genitourinary Genitourinary: denies: Incontinence - Musculoskeletal Musculoskeletal: reports: Muscle weakness - Integumentary Integumentary: reports: Dryness - Neurological Neurological: reports: General weakness, Memory problems (worsening), Other (aphasia). denies: Focal weakness, Headache, Dizziness, Seizures - Psychiatric Psychiatric: reports: Other (admits to some mood swings but can't define emotions). denies: Depression, Anxiety - All Other Systems All Other Systems: reports: Reviewed and negative Physical Exam - Vital Signs Temperature: 96.3 C Pulse Rate: 76 Respiratory Rate: 18 O2 Saturation: 97 (ra @ rest) Blood Pressure: 162/88 - Physical Exam General Appearance: positive: No acute distress Eyes Bilateral: positive: Normal inspection ENT: positive: Other (mouth with tongue coating; improved from baseline) Neck: positive: Trachea midline, Other (fullness from steroid use) Cardiovascular: positive: Regular rate & rhythm Respiratory: positive: Diminished in bases. negative: Wheezes, Rales, Rhonchi Abdomen: positive: Non-tender, Nml bowel sounds, Other (rounded from steroids) Skin: positive: Dryness Extremities: positive: No pedal edema Neurologic/Psychiatric: positive: Mood/affect nml, Disoriented to time, Flat affect Palliative Care - POLST Patient has POLST: Yes POLST Status: DNR, Selective Treatment Pain: No pain Tiredness/Fatigue: Moderate (4-6) Drowsiness/Sedation: Moderate (4-6) Nausea: Moderate (4-6) (persistant since starting chemo) Depression: None Anxiety: Mild (1-3) Dyspnea: Mild (1-3) Anorexia: Mild (1-3) Sleep: Variable sleep pattern Constipation: No Feelings of wellbeing/Perceived Quality of Life: Fair, Acceptable, Worsening Performance Status: Patient able to get from sitting to standing off of couch, though is low in some difficulty. He is still showering independently, he is walking around the apartment without difficulty no falls. I would put him at a PPS at 70% - Palliative Care Discussion: Patient is able to acknowledge he has had declining cognitive status, less able to take care of himself. Attempting to evaluate what patient's expectations were, does feel R when asked things Alice his as so is going to be providing 24/7 care. He does acknowledge she is having increased stress, and care burden. Conversation was approached as far as revisiting with threshold would be regarding quality of life, patient's cognitive status is deteriorated to the point that he is unable to really engage in this conversation. Though did admit if he did not know where he was, or able to take care of himself that would be poor quality of life and a good stopping point. Patient is unable to speak in full sentences, or complete full thoughts, making it very difficult to engage her to come to any kind of understandings. Patient though did express as part of the conversation "I got to get myself together" unable to expand of this was current situation or ocean transportation intermediary planning goal. I did follow-up with Alice alvarez as so, she does see that he is deteriorating alarmingly as well, particular on his cognitive processes. She is very conflicted as far as supporting him in his home setting, she does not want to be the primary caregiver, though is willing to provide oversight. She has met with medical palliative care social service director and patient would need to do a fairly significant spend down prior to meeting eligibility for [place]. She will continue to weigh benefits and burdens of continue with treatment, but patient is becoming less able to participate in the conversation or planning Impression and Recommendations - Palliative Care Impression: This is a 73-year-old gentleman with glioblastoma grade 4, left frontal lobe status post craniotomy, chemoradiation radiation and currently on second line treatment of bevacizumab every 2 weeks and started etoposide this last week. Patient presenting with symptoms of cognitive decline and less able to participate in decision-making and care decisions. Palliative care providing support regarding pain and symptom management, as well as navigating end-of-life care planning issues and anticipatory guidance Recommendations/Counseling Done: 1Glioblastoma. Patient is started etoposide, with low-grade nausea. Patient does not feel it has been at the threshold of needing antiemetic. Patient presenting with significant cognitive decline and deficits, follow-up with neuro oncology/oncology as may benefit from titrating steroids. Do not want to make any changes until his as so is home tomorrow night. Patient is quite forgetful, did want me to review his medications and Mediset, reassured and reviewed and correct. 2. Advanced care planning. Alice alvarez as so is meeting with medical palliative care social service director regarding long-term planning, is expressing concern regarding decision making is patient's cognitive decline and concern for caregiving needs in the future. Alice feels it would be helpful to have more of a sense of prognosis, reviewed if stops treatment, would meet the category of 6 months or less for hospice admit if consistent with goals. Patient currently being supported for treatment, but concerned about increasing care needs and decreasing quality of life. Time Spent: 50 minutes with greater than 50% of this done in counseling and coordination of care follow-up with oncology/neuro as well as anticipatory guidance.
== END 2018-09-03 20:33 | disposition home or self-care (01) ==
LOC: PC 20:32
PROVIDERS: ATTEND Nurse Practitioner Adult Health
DX: Z51.5 Encounter for palliative care (principal); C71.1 Malignant neoplasm of frontal lobe; R11.0 Nausea; T45.1X5A Adverse effect of antineoplastic and immunosuppressive drugs, initial encounter; Z79.899 Other long term (current) drug therapy; Z66 Do not resuscitate; Z79.52 Long term (current) use of systemic steroids
CPT/HCPCS: 99349

== ENCOUNTER 2018-09-14 15:15 | Outpatient (CLI) | payer MEDICARE, BC ==
--- NOTE | 2018-09-14 21:54 | CONSULTATION NOTE ---
Palliative Care Follow Up - Referral Referring Provider: Dr. Marcie Patino Time of Visit: [id number] Referral setting: Home (Is a taxing considerable effort for the patient to leave the home, home visit also made to facilitate a family conference secondary to patient's declining cognitive status) Referral Reason: Glioblastoma Grade 4 - Information Sources Records reviewed: Previous records reviewed History/Review of Systems obtained from: Patient, Family (s/o Alice present) Exam limitations: Clinical condition (patient with deterioration of cognitive st atus; increase difficulty with memory and language;) - History of Present Illness Update Brief HPI Update: This is a 73-year-old gentleman with a diagnosis of left frontal glioblastoma, status post initial resection followed by chemoradiation. Patient received adjuvant Temodar, but did show progression of disease. He is currently on oral etoposide and receiving bevacizumab. In facility in a family meeting today with his as so Alice and patient, secondary to patient is having ongoing decline in cognitive status. He is still independent and functional within the apartment, but has no recall of our last visit, difficulty remembering what he had for breakfast, having increased word finding as well as difficulty with expressive aphasia. He has some insight into this, Alice is quite clear at this point that she is not going to be able to be to a 24/7 caregiver, and requesting help and navigating conversation for making a plan in looking at placement in the future. She is also his D POA, and other goal is to define at what point to discontinue treatment. Patient was titrated up on his dexamethasone on 08/29 7-4 mg twice daily, there is been no improvement and continued deterioration of cognitive symptoms. Patient did have a few days earlier this week where he did not feel well, Alice nor the patient were able to discern the etiology of this. Patient is still eating and with good appetite, does not always remember to drink, may have been attributed to dehydration. Social History - Living Situation Living arrangement: At home Living Situation: Alone Support System: Alice is his as so, they have been together over 8 years. They do not live together. She has taken on more more responsibilities, she provides oversight for his bills, care decisions, arranging schedule and transportation. She calls them frequently to remind him to take his meds, has been over every evening to assist with dinner, now has had to add lunch in preparation. He is still currently able to prepare his own breakfast. He does spend most of his time sitting on the couch. Medications/Allergies - Medications Home Medications: Ambulatory Orders Medication Instructions Recorded Confirmed Levothyroxine Sodium 50 mcg PO QDAC 10/22/16 09/05/18 Tamsulosin [Flomax] 0.4 mg PO DAILY capsule 10/23/16 09/05/18 Clotrimazole Tamia 10 mg PO TID 04/03/18 09/05/18 Levetiracetam [Keppra] 500 mg PO BID 04/03/18 09/05/18 Dexamethasone 4 mg PO BID 05/30/18 09/06/18 Polyethylene Glycol 3350 [Miralax] 17 gm PO DAILY PRN 05/30/18 09/05/18 traZODone [Desyrel] 50 - 100 mg PO ACHS PRN 07/06/18 09/05/18 Ondansetron HCl [Zofran] 4 mg PO Q4H PRN #30 tablet 08/16/18 09/04/18 Prochlorperazine Maleate 10 mg PO Q6H PRN #30 tablet 08/16/18 09/04/18 Etoposide 100 mg PO DAILY 09/04/18 09/05/18 - Allergies Allergies/Adverse Reactions: Allergies Allergy/AdvReac Type Severity Reaction Status Date / Time piroxicam [From Feldene] Allergy Unknown Verified 08/15/18 12:41 Review of Systems - Constitutional Constitutional: reports: Fatigue, Weight gain. denies: Fever, Chills - Eyes Eyes: reports: Vision loss, Corrective lenses - Ears, Nose & Throat Ears, Nose & Throat: reports: Dry mouth - Cardiovascular Cardiovascular: reports: Decr. exercise tolerance - Respiratory Respiratory: denies: SOB at rest - Gastrointestinal Gastrointestinal: reports: Good appetite. denies: Constipation - Musculoskeletal Musculoskeletal: reports: Stiffness, Muscle weakness - Integumentary Integumentary: reports: Dryness - Neurological Neurological: reports: General weakness, Memory problems. denies: Headache, Dizziness - Psychiatric Psychiatric: denies: Depression (is tearful with conversation; denies depression "it is what it is") - All Other Systems All Other Systems: reports: Other (limited ROS) Physical Exam - Vital Signs Temperature: 97.3 C Pulse Rate: 63 Respiratory Rate: 18 O2 Saturation: 96 (ra @ rest) Blood Pressure: 148/84 - Physical Exam General Appearance: positive: No acute distress Eyes Bilateral: positive: Normal inspection ENT: negative: Oral lesions Neck: positive: Other (full neck with cushingnoid appearance) Cardiovascular: positive: Regular rate & rhythm Respiratory: positive: No respiratory distress Abdomen: positive: Distended, Obese Skin: positive: Pallor, Dryness Extremities: positive: Pedal edema (slight pedal edema in ankles) Neurologic/Psychiatric: positive: Mood/affect nml, Disoriented to time, Slurred/abnml speech, Flat affect Palliative Care - POLST Patient has POLST: Yes POLST Status: DNR, Selective Treatment Pain: No pain - Palliative Care Discussion: Navigated conversation regarding goals of care. This is somewhat difficult with patient's deteriorating cognitive status. We were able though to help him understand, Alice does not want to be a 24/ caregiver, and given his changes in his cognitive status we needed to have a serious conversation. Alice has gone to look at an adult family home, unfortunately the local [facility] was closed, there are limited options. Patient does have some limited resources. We discussed in the context of patient's goals were to have a at home, if he were to have an acute decline, may be able to hire assistance. Alice and I did explore and got permission to include his brother Saurabh and the plan. He has expressed to Alice he would be willing to come out, this would not be a long-term plan but certainly would be of help to Alice if patient actively transitioning or needs placement. Several approaches were made to help patient understand, will need end-of-life plan, [place]. He did give permission to Alice to explore this with the social work nurse, discussed should put his name on any waiting list, as I suspect he will decline over the next few weeks. If patient no longer able to participate in his care decisions, or becomes more confused, does not know where he is this would not be considered quality of life and we did discern this would be as stopping point for chemotherapy. Patient was also encouraged given his precarious situation, to say his goodbyes while he still is able to participate in those conversations. He does say he has people he would like to be able to follow-up with. Alice feels like she may know who those are, and will help him with that "bucket list" item. Patient actually was quite tearful, he is somewhat pragmatic, "it is what it is" and unfortunately given where he is cognitively, is having difficulty expressing or processing his grief. Results - Lab Results Lab results reviewed: Yes Lab and Imaging Results: Eleveated LFTs 09/05 Impression and Recommendations - Palliative Care Impression: This is a 73-year-old gentleman with glioblastoma grade 4, left frontal lobe, status post craniotomy, chemoradiation, Progression on adjuvant team adore, currently on etoposide and bevacizumab. Patient does present with increased symptoms of cognitive decline, is able to participate in decision-making and care decisions, and with complex social situation. Palliative care facilitated family conference today, regarding goals of care and end-of-life planning. Recommendations/Counseling Done: 1. Glioblastoma. Patient steroids titrated up to 4 mg twice daily, without improvement of cognitive symptoms. Patient is tolerating current etoposide, though did have a few days of feeling poorly, unable to discern or tease out symptom either by myself or significant other. Goals of care conversation included at threshold for discontinuing treatment, would be at the point patient no longer able to be independent at home nor safe as well as no longer able to communicate or oriented to person and place. 2. Advanced care planning. Counseling provided regarding the continuum of care, agreements were made though patient with poor memory. Alice does feel somewhat reassured he did participate in these conversations, we re-approached multiple times to assist patient with understanding. Short-term plan will be to enlist the help of his brother Saurabh, he will have to travel I believe from [facility], but will assist with either care if patient deteriorating quickly in his apartment, or placement if needed longer term plan. Alice has had previous conversations with him and will share with him conversation today. Alice will work with a medical palliative care social work nurse for placement options, but this would be the long-term plan is Alice is feeling overwhelmed and does not want to be 24/7 caregiver. Did discuss in the context of patient's progressive symptoms, he would meet criteria for hospice is for her to stop chemo. Given the rate of decline, would suspect weeks to months at most. We did discuss transitioning to hospice given the complexity of his social situation, would be helpful to have an early referral to be able to plan for end of life needs and provide adequate support and oversight. Did recommend [facility] with fall feature, as patient is getting weaker but currently able to meet some and most ADLs for personal care Time Spent: 50 minutes with greater than 50% of this done in counseling regarding goals of care, short-term and long-term planning, anticipatory guidance and addressing caregiver distress.
== END 2018-09-14 15:16 | disposition home or self-care (01) ==
LOC: PC 15:15
PROVIDERS: ATTEND Nurse Practitioner Adult Health
DX: Z51.5 Encounter for palliative care (principal); C71.9 Malignant neoplasm of brain, unspecified; H54.7 Unspecified visual loss; Z66 Do not resuscitate; Z92.3 Personal history of irradiation; Z92.21 Personal history of antineoplastic chemotherapy
CPT/HCPCS: 99349

== ENCOUNTER 2018-09-22 09:58 | Emergency (ER) | payer MEDICARE, BC ==
--- NOTE | 2018-09-22 10:27 | ED Physician Documentation ---
History of Present Illness - Stated complaint Stated Complaint: ABD PX - Chief complaint Chief Complaint: Abd Pain - History obtained from History obtained from: Patient, Caregiver - History of Present Illness Pain level max: 7 - Additonal information Additional information: Patient is a 73-year-old male with history of metastatic glioblastoma. Patient is accompanied by a friend, who provide significant history, as patient is suffering from mild dementia, likely due to his underlying disease process. Mentation is at baseline for patient. Patient's friend is unsure of patient's exact symptoms, but reports that he described abdominal pain and diarrhea earlier today.Currently, patient reports diffuse abdominal pain and bloating with loose brown stools.Patient denies bloody stools, vomiting, difficulty with urination, fever, or other concerns except for bilateral foot swelling, which has been present over the past several days since his last chemotherapy on Monday.There are no particular interventions that improve or worsen symptoms. Review of Systems Ten Systems: 10 systems reviewed and negative Constitutional: denies: Fever GI: reports: Abdominal Pain, Abdominal Swelling, Diarrhea : denies: Dysuria PD PAST MEDICAL HISTORY - Past Medical History Cardiovascular: Angina, Atrial fibrillation Respiratory: Asthma Neuro: Other Endocrine/Autoimmune: HyPOthyroidism GI: GERD : Benign prostate hypertrophy, Other HEENT: Chronic vision loss Psych: Depression Musculoskeletal: Gout Derm: Eczema - Past Surgical History Past Surgical History: Yes General: Cholecystectomy, Appendectomy, Bowel surgery, Colonoscopy, EGD, Other Ortho: Arthroscopic surgery Neuro: Craniotomy HEENT: Tonsil/Adenoidectomy - Present Medications Home Medications: Ambulatory Orders Medication Instructions Recorded Confirmed RX: Levothyroxine Sodium 50 mcg PO QDAC 10/22/16 09/22/18 RX: Tamsulosin [Flomax] 0.4 mg PO DAILY capsule 10/23/16 09/22/18 Levetiracetam [Keppra] 500 mg PO BID 04/03/18 09/22/18 RX: Clotrimazole Tamia 10 mg PO TID 04/03/18 09/22/18 Polyethylene Glycol 3350 [Miralax] 17 gm PO DAILY PRN 05/30/18 09/22/18 RX: Dexamethasone 3 mg PO BID 05/30/18 09/22/18 RX: traZODone [Desyrel] 50 - 100 mg PO ACHS PRN 07/06/18 09/22/18 RX: Ondansetron HCl [Zofran] 4 mg PO Q4H PRN #30 tablet 08/16/18 09/22/18 RX: Prochlorperazine Maleate 10 mg PO Q6H PRN #30 tablet 08/16/18 09/22/18 - Allergies Allergies/Adverse Reactions: Allergies Allergy/AdvReac Type Severity Reaction Status Date / Time piroxicam [From Feldene] Allergy Unknown Verified 09/22/18 10:08 - Social History Does the pt smoke?: No Smoking Status: Never smoker Does the pt drink ETOH?: Yes Does the pt have substance abuse?: No - Immunizations Immunizations are current?: Yes - POLST Patient has POLST: Yes Results - Vitals Vitals: Vital Signs - 24 hr 09/22/18 09/22/18 09/22/18 10:06 11:56 12:00 Temperature 35.7 C L 35.4 C L Heart Rate 97 76 75 Respiratory 14 16 Rate Blood Pressure 161/84 H 157/89 H 152/86 H O2 Saturation 93 96 97 09/22/18 15:00 Temperature Heart Rate 68 Respiratory 16 Rate Blood Pressure 178/96 H O2 Saturation 98 Oxygen O2 Source Room air - Labs Labs: Laboratory Tests 09/22/18 09/22/18 09/22/18 10:01 10:15 10:26 WBC 2.2 L RBC 4.25 L Hgb 13.0 L Hct 37.0 L MCV 87.2 MCH 30.5 MCHC 35.0 RDW 16.1 H Plt Count 112 L MPV 7.3 L Neut # (Auto) 1.9 Lymph # (Auto) 0.3 L [place] # (Auto) 0.1 Eos # (Auto) 0.0 Baso # (Auto) 0.0 Absolute Nucleated RBC 0.01 Nucleated RBC % 0.5 Manual Slide Review Indicated Platelet Estimate DECREASED (<130,000) Platelet Morphology NORMAL APPEARANCE RBC Morph Micro Appear 1+ ANISOCYTOSIS Sodium 138 Potassium 4.0 Chloride 98 L Carbon Dioxide 30 Anion Gap 10.0 BUN 28 H Creatinine 0.8 Estimated GFR (MDRD) 95 Glucose 183 H Lactic Acid 3.1 H* Calcium 8.8 Total Bilirubin 1.1 H AST 277 H ALT 742 H Alkaline Phosphatase 78 Total Protein 5.9 L Albumin 3.6 Globulin 2.3 Albumin/Globulin Ratio 1.6 Lipase 46 Urine Color Urine Clarity Urine pH Ur Specific [place] Urine Protein Urine Glucose (UA) Urine Ketones Urine Occult Blood Urine Nitrite Urine Bilirubin Urine Urobilinogen Ur Leukocyte Esterase Ur Microscopic Review Urine Culture Comments 09/22/18 09/22/18 14:10 14:27 WBC RBC Hgb Hct MCV MCH MCHC RDW Plt Count MPV Neut # (Auto) Lymph # (Auto) [place] # (Auto) Eos # (Auto) Baso # (Auto) Absolute Nucleated RBC Nucleated RBC % Manual Slide Review Platelet Estimate Platelet Morphology RBC Morph Micro Appear Sodium Potassium Chloride Carbon Dioxide Anion Gap BUN Creatinine Estimated GFR (MDRD) Glucose Lactic Acid 3.1 H* Calcium Total Bilirubin AST ALT Alkaline Phosphatase Total Protein Albumin Globulin Albumin/Globulin Ratio Lipase Urine Color YELLOW Urine Clarity CLEAR Urine pH 8.0 H Ur Specific [place] 1.015 Urine Protein NEGATIVE Urine Glucose (UA) NEGATIVE Urine Ketones NEGATIVE Urine Occult Blood NEGATIVE Urine Nitrite NEGATIVE Urine Bilirubin NEGATIVE Urine Urobilinogen 0.2 (NORMAL) Ur Leukocyte Esterase NEGATIVE Ur Microscopic Review NOT INDICATED Urine Culture Comments NOT INDICATED PD MEDICAL DECISION MAKING - ED course Complexity details: reviewed old records, considered differential, d/w patient, d/w family, d/w multi site leasing consultant ED course: Patient has complicated past medical history including known glioblastoma .Patient's friend is present to provide additional history. Patient has baseline dementia which is unchanged and provides minimal history. Physical exam is rather unremarkable with no obvious signs of significant dehydration or acute pathology. Abdomen is slightly bloated, but without significant tenderness. No signs of peritonitis. Considering intra-abdominal pathology such as small bowel obstruction, diverticulitis, mass given history of carcinoma and will obtain CT imaging. Screening lab work and urinalysis also obtained which returned with decreased white blood cell count, which is similar to previous labs, as well as elevated liver enzymes, which is similar to previous labs. Patient's lactic acid is also elevated which could be reflective of dehydration or liver enzyme elevation. Have lower suspicion for sepsis or other intra-abdominal infection. Urinalysis returned unremarkable.CT imaging did not find evidence of new acute pathology. Patient requesting discharge home I discussed results and recommendations including hydration, return precautions, supportive cares, and immediate follow-up with oncology on Monday. Also contacted oncology solution coordinator to notify them of his ED visit.No, patient had slightly elevated blood pressures, although not elevated enough to require intervention at this time. Patient to follow-up with primary care physician and oncologist for this issue. Departure - Departure Disposition: Home, Self Care Clinical Impression: Elevated blood pressure reading, Dehydration Condition: Fair Instructions: Abdominal Pain, Hypertension Control, ED Dehydration Follow-Up: Saul Patino DO [Primary Care Provider] - Within 3 Days Summer Bernard MD [Physician No Access] - Within 3 Days Comments: Please continue all home medications as previously instructed. Please focus on rehydration using fluids such as Pedialyte, Gatorade, or Powerade. Also recommend addressing your foot swelling with compression socks and elevation. Please follow-up with your oncologist or primary care physician on Monday. Return to ED sooner if experience worsening symptoms or other concerns. Discharge Date/Time: 09/22/18 15:38
[2018-09-22 10:54] LABS: BASOPHILS % (AUTO) 1.4 %; EOSINOPHILS % (AUTO) 0.2 %; LYMPHOCYTES # (AUTO) 0.3 10^3/uL (1.5-3.5); LYMPHOCYTES % (AUTO) 11.8 %; MEAN CORPUSCULAR HEMOGLOBIN 30.5 pg (27.0-31.0); MEAN CORPUSCULAR VOLUME 87.2 fL (80.0-94.0); MEAN PLATELET VOLUME 7.3 fL (7.4-11.4); MONOCYTES # (AUTO) 0.1 10^3/uL (0.0-1.0); MONOCYTES % (AUTO) 2.7 %; NEUTROPHILS # (AUTO) 1.9 10^3/uL (1.5-6.6); NEUTROPHILS % (AUTO) 83.9 %; PLT - PLATELET COUNT 112 10^3/uL (130-450); RED BLOOD COUNT 4.25 10^6/uL (4.70-6.10); RED CELL DISTRIBUTION WIDTH 16.1 % (12.0-15.0); WHITE BLOOD COUNT 2.2 x10^3/uL (4.8-10.8)
[2018-09-22 11:09] LABS: ALBUMIN 3.6 g/dL (3.2-5.5); ALBUMIN/GLOBULIN RATIO 1.6 (1.0-2.2); BILIRUBIN,TOTAL 1.1 mg/dL (0.2-1.0); CALCIUM 8.8 mg/dL (8.5-10.3); CREATININE 0.8 mg/dL (0.6-1.2); TOTAL PROTEIN 5.9 g/dL (6.7-8.2)
[2018-09-22] MEDS ORDERED: SODIUM CHLORIDE 0.9% 1,000 ML IV ONE ×2 (11:15→14:39)
[2018-09-22 11:24] LABS: PLATELET ESTIMATE, MANUAL DECREASED (<130,000) (NORMAL); PLATELET MORPHOLOGY NORMAL APPEARANCE (NORMAL); RBC MORPHOLOGY (MULTIPLE) 1+ ANISOCYTOSIS (NORMAL)
[2018-09-22] MEDS ORDERED: IOPAMIDOL-300 100 ML VIAL ONE (12:54)
[2018-09-22] MEDS ORDERED: IOPAMIDOL-300 100 ML VIAL IVP ONE (13:19)
--- NOTE | 2018-09-22 14:21 | CT Report ---
Reason: Hx of non-met brain cancer, Diffuse pain, diarrhea Procedure Date: 09/22/2018 Accession Number: [id number] / [id number] Procedure: CT - ABDOMEN W CPT Code: FULL RESULT: EXAM: CT ABDOMEN EXAM DATE: 09/22/2018 12:55 PM. CLINICAL HISTORY: Hx of non-met brain cancer, Diffuse pain, diarrhea. COMPARISON: ABDOMEN W/ 09/22/2018 12:44 PM ABDOMEN/PELVIS W/ 05/27/2018 9:32 AM. TECHNIQUE: Routine helical CT imaging was performed through the abdomen. IV contrast: ISOVUE 300 100mL Enteric contrast: No. Reconstruction: Coronal and sagittal. In accordance with CT protocol optimization, one or more of the following dose reduction techniques were utilized for this exam: automated exposure control, adjustment of mA and/or KV based on patient size, or use of iterative reconstructive technique. FINDINGS: Lung Bases: Trace right pleural effusion. Streaky scarring/atelectasis in the lung bases, right more than left. Liver: Diffuse low-attenuation of the liver suggesting fatty infiltration. No discrete liver mass visualized. Gallbladder/Bile Ducts: The gallbladder is surgically absent. No bile duct dilatation. Spleen: Normal. Pancreas: There is a hypodense lesion in the uncinate process measuring 12 x 10 mm (image 29 of series 5). This does not appear significantly changed in size from the prior exam from May 2018. Adrenal Glands: Normal. Kidneys: Again seen is a nonobstructing stone in the lower pole of the left kidney measuring 5 mm in diameter. Symmetric renal perfusion. No hydronephrosis. No intraluminal stones and the visualized ureters. Peritoneal Cavity/Bowel: Nonobstructive bowel gas pattern in the abdomen. The pelvis is not included on this study. No free air or free fluid visualized. Vasculature: Calcified and noncalcified plaque in the abdominal aorta without evidence of aneurysm. Bones: The bones are osteopenic. There is a compression deformity of the superior end plate of T12, which appears to be related to a Schmorl node when compared to the prior exam. The deformity now results in approximately 25-50% loss of vertebral body height. No significant retropulsion into the spinal canal. Bones are otherwise intact. Other: None. IMPRESSION: Hepatic steatosis. Nonspecific hypodense lesion in the uncinate process of the pancreas, which does not appear significantly changed in size from the prior CT from May 2018. A cystic neoplasm is not excluded. This could be further evaluated with contrast-enhanced CT or MRI of the pancreas if not already performed. Trace right pleural effusion. Nonobstructing left renal nephrolithiasis. Osteopenia. Compression deformity of the superior end plate of T12, as described above. Correlation with focal tenderness on physical exam recommended. RADIA
[2018-09-22 14:39] LABS: BILIRUBIN,URINE NEGATIVE (NEGATIVE); GLUCOSE, URINE (UA) NEGATIVE (NEGATIVE); KETONES,URINE (UA) NEGATIVE (NEGATIVE); LEUKOCYTE ESTERASE, URINE NEGATIVE (NEGATIVE); NITRITE,URINE NEGATIVE (NEGATIVE); OCCULT BLOOD,URINE NEGATIVE (NEGATIVE); PROTEIN,URINE NEGATIVE (NEGATIVE); UROBILINOGEN,URINE 0.2 (NORMAL) E.U./dL (NORMAL)
[2018-09-22 14:42] LABS: CLARITY,URINE CLEAR (CLEAR)
[2018-09-22 15:15] VITALS: BP 178/96
== END 2018-09-22 15:38 | disposition home or self-care (01) ==
LOC: ED 09:58
DX: E86.0 Dehydration (principal); R03.0 Elevated blood-pressure reading, without diagnosis of hypertension; M79.89 Other specified soft tissue disorders; C71.9 Malignant neoplasm of brain, unspecified; F03.90 Unspecified dementia, unspecified severity, without behavioral disturbance, psychotic disturbance, mood disturbance, and anxiety
CPT/HCPCS: 36415; 74160; 80053; 81003; 83605; 83690; 85025; 96360; 96361; 99283; 99284; Q9967; 81001; 87086

== ENCOUNTER 2018-09-28 13:05 | Outpatient (CLI) | payer MEDICARE, BC ==
--- NOTE | 2018-09-29 13:01 | CONSULTATION NOTE ---
Palliative Care Follow Up - Referral Referring Provider: Dr. Marcie Villalobos Time of Visit: Monday09/28/2018 [id number] Referral setting: Home Referral Reason: Glioblastoma left frontal lobe - Information Sources Records reviewed: Previous records reviewed History/Review of Systems obtained from: Patient, Family (significant other Alice) Exam limitations: Clinical condition (patient with STM deficits; increased expressive aphasia) - History of Present Illness Update Brief HPI Update: This is a 73-year-old gentleman with a diagnosis of left frontal glioblastoma, status post initial cranial resection, followed by chemoradiation. Patient did receive adjuvant Temodar but did show progression of disease on 05/07/2018. Patient was kept off chemotherapy in the month of July, with a follow-up brain MRI done at [facility] which did show progression. At this point in time with consultation from [facility] oncology Dr. Oropeza and Dr. Bernard was started on etoposide every day from 08-05 and bevacizumab every 2 weeks. He is unable to continue with etoposide secondary to increased LFTs, patient was feeling poorly, and did recently have a visit to the emergency room secondary to diarrhea, dehydration, and increased lower extremity edema on 09/22/18. There had been ongoing conversation with patient, caregiver, myself regarding weighing benefits and burdens of continuing with chemotherapy, if patient were to continue to decline. He was doing fairly poorly this last couple weeks, etoposide was stopped, and has shown some improvement. Unfortunately what has not improved is his neuro symptoms, despite increasing Decadron to 4 mg twice daily, there is been no improvement, so he currently is on a Decadron taper. He presents today with increased expressive aphasia, more severe short-term memory deficits, and overall generalized weakness and functional decline. We had talked about transition to hospice, patient was to meet with Dr. Bernard on this last Monday, her recommendation given patient has not responded to treatment, and given the complexity of his situation was to transition onto hospice. Palliative care meeting today with patient, significant other Alice, to facilitate transition to hospice and confirm goals of care. Patient unfortunately with his short-term memory deficits, has very little recall of the conversation with Dr. Bernard, as well as able to compare and contrast symptoms, and difficulty with word finding and expressing thoughts. He does appear somewhat irritable, easily overwhelmed, but is able to participate in the conversation as well defaulting to historic expression of goals. Social History - Living Situation Living arrangement: At home Living Situation: Alone Support System: Alice his significant other, have been together for 8 years. They do not live together, she is continue to take on more responsibility and provides oversight for his bills, care decisions, and now much more involved in meal prep, medication oversight, patient is still able to dress himself, bathe, but is needing more cueing. He is much more sedentary, spending a significant amount of time on the couch.There have been multiple conversations regarding patient's goals to try and stay at home, but patient has very little support other than Alice, he does have a brother who lives back in [place], who will come if there are some urgent need or crisis or to assist with transition planning and placement. 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 Medications/Allergies - Medications Home Medications: Ambulatory Orders Medication Instructions Recorded Confirmed Levothyroxine Sodium 50 mcg PO QDAC 10/22/16 09/26/18 Tamsulosin [Flomax] 0.4 mg PO DAILY capsule 10/23/16 09/26/18 Clotrimazole Tamia 10 mg PO TID 04/03/18 09/26/18 Levetiracetam [Keppra] 500 mg PO BID 04/03/18 09/26/18 Dexamethasone 3 mg PO BID 05/30/18 09/26/18 Polyethylene Glycol 3350 [Miralax] 17 gm PO DAILY PRN 05/30/18 09/26/18 traZODone [Desyrel] 50 - 100 mg PO ACHS PRN 07/06/18 09/26/18 Ondansetron HCl [Zofran] 4 mg PO Q4H PRN #30 tablet 08/16/18 09/22/18 Prochlorperazine Maleate 10 mg PO Q6H PRN #30 tablet 08/16/18 09/22/18 Furosemide [Lasix] 20 mg PO DAILY 09/27/18 09/27/18 - Allergies Allergies/Adverse Reactions: Allergies Allergy/AdvReac Type Severity Reaction Status Date / Time piroxicam [From Feldene] Allergy Unknown Verified 09/22/18 10:08 Review of Systems - Constitutional Constitutional: reports: Fatigue, Weight gain (Patient presents with 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 denies: Fever, Chills - Eyes Eyes: reports: Vision loss, Corrective lenses - Ears, Nose & Throat Ears, Nose & Throat: reports: Dry mouth, Other (Continues on the Chlortrimazole, patient has had fluctuating trouble with oral candidiasis. Does not appear to badly today.) - Cardiovascular Cardiovascular: reports: Edema (Dr. Bernard did start him on low-dose furosemide 20 mg, have not obtain prescription yet.), Decr. exercise tolerance - Respiratory Respiratory: reports: SOB with exertion. denies: Cough, SOB at rest - Gastrointestinal Gastrointestinal: reports: Abdominal distention, Bloating, Good appetite. denies: Diarrhea (resolved per report), Nausea (improved off etopiside), Reflux/heartburn - Genitourinary Genitourinary: denies: Incontinence - Musculoskeletal Musculoskeletal: reports: Stiffness, Muscle weakness - Integumentary Integumentary: reports: Dryness - Neurological Neurological: reports: General weakness, Memory problems (patient very much in the moment; having difficulty with sequencing and expressive aphasia; word finding; gets very frustrated), Slurred speech - Psychiatric Psychiatric: reports: Other (irritability; short on patience for extensive questioning-attributed some from his STM/difficulty expressing self). denies: Depression (denies) - All Other Systems All Other Systems: reports: Other (limited ROS with STM) Physical Exam - Vital Signs Temperature: 96.4 C Pulse Rate: 64 Respiratory Rate: 18 O2 Saturation: 94 (ra @ rest) Blood Pressure: 162/82 - Physical Exam General Appearance: positive: Mild distress Eyes Bilateral: positive: Normal inspection ENT: positive: Other (coated slightly in white; no buccal patches) Neck: positive: Other (full neck from cushingnoid effect) Cardiovascular: positive: Regular rate & rhythm Respiratory: positive: Diminished in bases. negative: Wheezes, Rales, Rhonchi Abdomen: positive: Non-tender, Distended, Taut Skin: positive: Pallor, Dryness Extremities: positive: Pedal edema (mostly pooling in feet; unable to wear shoes;), Other (Patient unwilling to get from sit to stand and demonstrate ambulation, Alice reports patient having more difficulty with lower extremity weakness, gait is more shuffled and unsure, patient is not had any falls. Reports he still able to bathe independently.) Neurologic/Psychiatric: positive: Disoriented to time, Weakness, Slurred/abnml speech, Flat affect Palliative Care - POLST Patient has POLST: Yes POLST Status: DNR, Selective Treatment Pain: No pain Tiredness/Fatigue: Severe (7-10) Drowsiness/Sedation: Mild (1-3) Nausea: None Depression: Mild (1-3) Anxiety: Mild (1-3) Dyspnea: Mild (1-3) Anorexia: None Sleep: Sleeps well (has not needing the trazadone;) Constipation: No Feelings of wellbeing/Perceived Quality of Life: Fair, Worsening - Palliative Care Discussion: Had spoken with Alice on 09/25, reports when she had taken him home from the emergency room the next morning he was as clear as he had been for a long period of time, attributed this to his hydration status. She did explore and he was able to express "this is hard" that he is needing more help and she is heading to provide more assistance. He had talked about needing to "pack up with staff", she asked him directly if he is ready to stop chemotherapy, and felt like she got a positive answer to this. Reports and Dr. Bernard is visit, she had explained at this point in time treatment was not working, and recommended transition to hospice and focus on quality of life. He does feel he understood this. In the context of introducing hospice, he was able to say yes this was okay, though definitely not able to weigh into the intricacies regarding this. In fact got quite overwhelmed and was expressing fatigue. Did agree that I would continue the conversation with Alice. We did initiate a conversation though about having his brother Saurabh come out, he was quite adamant he did not want to have that happen. We did talk about though if patient were to have decline, or at a transition point and we needed a different plan, that might be the right time to have him, and he did acquiesce. Counseling provided to Alice regarding the hospice benefit, will need to work with the healthcare social worker pretty quickly and urgently to make sure we have a plan in place. She is in process of working on the [place] application, has checked out [facility], is looking at other options for placement if necessary. She does not want to be the primary caregiver, is willing to support him in his journey, but he will need placement unless his decline is fairly rapid. Results - Lab Results Lab results reviewed: Yes Impression and Recommendations - Palliative Care Impression: This is a 73-year-old gentleman with glioblastoma grade 4, left frontal lobe, status post craniotomy, chemoradiation, with progression on Temodur, and poor tolerance of Etoposide side effects. Patient demonstrating neurological decline, functional decline, and given the complexity of his social situation and goals of care, will be transitioning to hospice. Recommendations/Counseling Done: 1. Glioblastoma. Patient currently has been discontinued off of etoposide secondary side effects, after conversation with oncologist no further treatment planned and will transition to hospice. Patient has not improved on increased Decadron 4 mg BID, Oertli on 3 mg twice daily with the plan to decrease to 2 mg twice daily. This can be supervised by the hospice team. Concern regarding having a plan in place for meeting patient's care needs, patient is losing ability to communicate and provide his own self-care. Will need social work support as soon as possible, has been working with [facility] healthcare social worker will have them do a handoff. It is feeling better off of the etoposide, but his neuro symptoms are not improved. 2. Lower extremity edema. This is most likely multifactorial in origin. Patient does sit with his feet dependent on the couch, and attributed to his steroid use. Patient to initiate Lasix 20 mg daily, patient has a tendency to be dehydrated, encouraged ongoing vigilance regarding fluids, patient's blood pressure is elevated this may be of help. They do not have a blood pressure cuff. 3. Advanced care planning. Counseling provided regarding the continuum of care, patient in agreement to transition to hospice. Patient feeling overwhelmed and with increased irritability, agreed with continue conversation outside with Alice. Counseling provided regarding the hospice benefit, continuum of care, continue to review options for placement. Arrangements made for a Monday admit. Contact made with manager documentation. Time Spent: 55 minutes with greater than 50% of this done in counseling regarding goals of care, review of hospice benefit, anticipatory guidance provided as well as review of symptoms. Coordination of care with hospice team, primary PCP on vacation, will notify through office.
--- NOTE | 2018-09-29 21:18 | ONCOLOGY / HEMATOLOGY ---
DATE OF SERVICE: 09/28/2018 Physician: Summer Bernard MD [facility] MEDICAL ONCOLOGY/HEMATOLOGY FOLLOWUP NOTE ASSESSMENT AND PLAN 1. Glioblastoma multiforme. Patient is status post initial resection followed by chemoradiation at [facility] in [place]. 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 Patient was started on adjuvant Temodar on 02/07/2018, he received 3 cycles of the same. The MRI done on 07/07/2018 was consistent with progression. The PET/CT scan; jailyn, did not show activity in this area. The patient was kept off of any chemotherapy on the month of July and this was restarted on 07/29/2018 after the MRI done at [facility] was consist ent with progression. Patient was started on oral etoposide 50 mg/m2 every day from day 1-21 and lokesh acizumab 10 mg/kg every 2 weeks. Patient was seen in consultation a week ago when it was found that his LFTs had tripled from beginning of start of etoposide. Patient was also reporting more confusion . Given this, we had stopped etoposide but continued him on bevacizumab. Palliative Care has also b een helping us with the treatment of this patient and as per their observation, patient was declining and after much consultation with the patient's significant other/friend, who has been taking care of him and the patient, the patient has decided to go forward with hospice. 2. Memory issues and confusion. Patient will continue to be on the dexamethasone taper 3 mg b.i.d. and then 2 mg b.i.d. 3. Urinary issues. Patient will continue on Flomax. 4. Hypothyroidism. Patient will continue on Synthroid as all these medications are important for hi s quality of life. Today, we went in detail with the different options of further treatment versus his progressing disea se and poor prognosis, and we spent 40 minutes coming to treatment decision that the patient would li ke to go to hospice. TD: 09/29/2018 12:36
== END 2018-09-28 13:06 | disposition home or self-care (01) ==
LOC: PC 13:05
PROVIDERS: ATTEND Nurse Practitioner Adult Health
DX: Z51.5 Encounter for palliative care (principal); C71.1 Malignant neoplasm of frontal lobe; R47.01 Aphasia; Z92.3 Personal history of irradiation; Z92.21 Personal history of antineoplastic chemotherapy; R53.1 Weakness; R41.3 Other amnesia; B37.0 Candidal stomatitis; Z66 Do not resuscitate; R60.0 Localized edema; E24.2 Drug-induced Cushing's syndrome; T38.0X5A Adverse effect of glucocorticoids and synthetic analogues, initial encounter
CPT/HCPCS: 99349